=== PATIENT | male | born 1925 | race Caucasian/White ===

== ENCOUNTER 2016-06-13 15:20 | Observation (INO) | payer OTHER ==
--- NOTE | 2016-06-13 15:39 | PDOC ---
[id number] No Limitations - History of Present Illness Initial Comments: 06/13/16 15:44 The patient is an 89-year-old man, accompanied by his , with a significant past medical history of hypertension, hypercholesterolemia and tricuspid regurgitations who presents to the emergency department for further evaluation of chest pain. No fall, strenuous activity. As per patient, he reports experiencing a sudden onset of intermittent non-radiating chest pressure sensations, located on is mid-sternum with a rated (4/10). He notes associated symptoms of tingling sensations over his fingertips and legs. No associated symptoms of shortness of breath, lightheadedness, dizziness, visual changes, neck pain, headaches. He reports experiencing similar symptoms in December of 2015. He was admitted and states that he did not have a definite answer as to why he experienced such symptoms. No fever, chills, generalized weakness. No abdominal pain, nausea, vomiting, diarrhea. No urinary symptoms. Off note- while reviewing past documents, the patient underwent an echocardiogram on October 2015 which was indicative of tricuspid valve thickening and tricuspid regurgitation. No history of stress test in the past. Allergies: No Known Drug Allergies Past Surgical History: Umbilical hernia repair. Social History: Never smoked. No ETOH and recreational drug use. Primary Care Physician: Dr. Alan Short District Scout Executive: Dr. Clement Moyer <Jacque Oconnor - Last Filed: 06/13/16 16:11> <Landen Ribeiro - Last Filed: 06/27/16 09:11> - General Chief Complaint: Chest Pain Stated Complaint: CHEST PAIN Time Seen by Provider: 06/13/16 15:39 Past History <Jacque Oconnor - Last Filed: 06/13/16 16:11> - Past Medical History HTN: Yes Hypercholesterolemia: Yes - Surgical History Abdominal Surgery: Yes (umbilical hernia) - Psycho/Social/Smoking Cessation Hx Anxiety: No Suicidal Ideation: No Smoking Status: No Smoking History: Never smoked Have you smoked in the past 12 months: No Number of Cigarettes Smoked Daily: 0 Hx Alcohol Use: No Drug/Substance Use Hx: No Substance Use Type: None <Landne Ribeiro - Last Filed: 06/27/16 09:11> - Past Medical History Allergies/Adverse Reactions: Allergies Allergy/AdvReac Type Severity Reaction Status Date / Time No Known Allergies Allergy Verified 06/13/16 15:22 Home Medications: Ambulatory Orders Allopurinol [Zyloprim -] 100 mg PO HS 12/21/11 Tamsulosin HCl 0.4 mg PO HS 12/21/11 Amlodipine Besylate [Norvasc -] 10 mg PO DAILY 07/19/15 Aspirin [ASA -] 81 mg PO DAILY 07/19/15 Atorvastatin Ca [Lipitor] 20 mg PO HS 07/19/15 Hydralazine HCl [Apresoline -] 50 mg PO BID 07/19/15 Hydrochlorothiazide [Hctz -] 12.5 mg PO DAILY 07/19/15 Isosorbide Mononitrate [Imdur -] 60 mg PO DAILY 07/19/15 Metoprolol Succinate [Toprol XL -] 50 mg PO DAILY 07/19/15 Lisinopril 20 mg PO DAILY 10/29/15 Review of Systems - Review of Systems Able to Perform ROS?: Yes Comments:: 06/13/16 15:44 GENERAL/CONSTITUTIONAL: No fever or chills. No weakness. HEAD, EYES, EARS, NOSE AND THROAT: No change in vision. No ear pain or discharge. No sore throat. CARDIOVASCULAR: Yes: Chest Pain. No shortness of breath. RESPIRATORY: No cough, wheezing, or hemoptysis. GASTROINTESTINAL: No nausea, vomiting, diarrhea or constipation. GENITOURINARY: No dysuria, frequency, or change in urination. MUSCULOSKELETAL: No joint or muscle swelling or pain. No neck or back pain. SKIN: No rash NEUROLOGIC: Yes: Tingling sensations to his fingertips and legs. No headache, vertigo, loss of consciousness, or change in strength. ENDOCRINE: No increased thirst. No abnormal weight change. HEMATOLOGIC/LYMPHATIC: No anemia, easy bleeding, or history of blood clots. ALLERGIC/IMMUNOLOGIC: No hives or skin allergy. <Jacque Oconnor - Last Filed: 06/13/16 16:11> *Physical Exam - Vital Signs Last Vital Signs Temp Pulse Resp BP Pulse Ox 98 F 74 18 180/100 98 06/13/16 15:22 06/13/16 15:22 06/13/16 15:22 06/13/16 15:22 06/13/16 15:22 - Physical Exam Comments: 06/13/16 15:44 GENERAL: Awake, alert, and fully oriented, in no acute distress HEAD: No signs of trauma EYES: PERRLA, EOMI, sclera anicteric, conjunctiva clear ENT: Auricles normal inspection, hearing grossly normal, nares patent, oropharynx clear without exudates. Moist mucosa NECK: Normal ROM, supple, no lymphadenopathy, JVD, or masses LUNGS: Breath sounds equal, clear to auscultation bilaterally. No wheezes, and no crackles HEART: Regular rate and rhythm, normal S1 and S2, no murmurs, rubs or gallops ABDOMEN: Soft, nontender, normoactive bowel sounds. No guarding, no rebound. No masses EXTREMITIES: Normal range of motion, no edema. No clubbing or cyanosis. No cords, erythema, or tenderness NEUROLOGICAL: Cranial nerves II through XII grossly intact. Normal speech <Jacque Oconnor - Last Filed: 06/13/16 16:11> - Vital Signs Last Vital Signs Temp Pulse Resp BP Pulse Ox 98 F 74 18 180/100 98 06/13/16 15:22 06/13/16 15:22 06/13/16 15:22 06/13/16 15:22 06/13/16 15:22 <Landen Ribeiro - Last Filed: 06/27/16 09:11> Heart Score/ECG Review #1 06/13/16 16:05 Reviewed and interpreted by Dr. Landen Riebiro IMPRESSION: Sinus rhythm with 1rst degree AV block otherwise normal EKG. No change from previous EKG obtained from 10/29/2015 <Jacque Oconnor - Last Filed: 06/13/16 16:11> ED Treatment Course - LABORATORY CBC & Chemistry Diagram: 06/15/16 05:35 06/15/16 05:35 <Landen Ribeiro - Last Filed: 06/27/16 09:11> Medical Decision Making - Medical Decision Making 06/13/16 15:44 The patient is an 89-year-old man, accompanied by his , with a significant past medical history of hypertension, hypercholesterolemia and tricuspid regurgitations who presents to the emergency department for further evaluation of chest pain. No fall, strenuous activity. As per patient, he reports experiencing a sudden onset of intermittent non-radiating chest pressure sensations, located on is mid-sternum with a rated (4/10). He notes associated symptoms of tingling sensations over his fingertips and legs. No associated symptoms of shortness of breath, lightheadedness, dizziness, visual changes, neck pain, headaches. He reports experiencing similar symptoms in December of 2015 but today he feels more pressure. Off note- while reviewing past documents, the patient underwent an echocardiogram on October 2015 which was indicative of tricuspid valve thickening and tricuspid regurgitation. No history of stress test in the past. Will obtain labs, EKG and Chest X-Ray. Will reassess. <Jacque Oconnor - Last Filed: 06/13/16 16:11> *DC/Admit/Observation/Transfer - Attestations Scribe Attestion: 06/13/16 15:45 Documentation prepared by Jacque Oconnor, acting as medical record technician for Landen Ribeiro DO. <Jacque Oconnor - Last Filed: 06/13/16 16:11> - Attestations Physician Attestion: 06/13/16 15:39 I, Dr. Landen Ribeiro, attest that this document has been prepared under my direction and personally reviewed by me in its entirety. I further attest, that it accurately reflects all work, treatment, procedures and medical decision -making performed by me. <Landen Ribeiro - Last Filed: 06/27/16 09:11> Diagnosis at time of Disposition: Chest pain Qualifiers: Chest pain type: unspecified Qualified Code(s): R07.9 - Chest pain, unspecified Hypertension Qualifiers: Hypertension type: essential hypertension Qualified Code(s): I10 - Essential ( primary) hypertension - Discharge Dispostion Disposition: TRANSFER ACUTE CARE/OTHER HOSP Condition at time of disposition: Stable - Referrals
[2016-06-13] MEDS ORDERED: SODIUM CHLORIDE 1,000 ML IV SCH (16:00)
[2016-06-13 16:17] LABS: BASOPHIL 0.8 % (0-2.0); EOSINOPHIL 0.5 % (0-4.5); MCH 31.5 pg (25.7-33.7); MCHC 33.7 g/dl (32.0-35.9); MEAN CELL VOLUME 93.5 fl (80-96); MEAN PLT VOLUME 8.8 fl (7.5-11.1); NEUTROPHILS 64.3 % (42.8-82.8); PLATELET COUNT 211 K/MM3 (134-434); RDW 14.6 % (11.9-15.9)
[2016-06-13 16:54] LABS: BILIRUBIN,TOTAL 1.1 mg/dL (0.2-1.0); CALCIUM 8.7 mg/dL (8.5-10.1); COCKROFT - GAULT 33.73; CREATININE 1.6 mg/dL (0.7-1.3); TOT PROT 7.4 g/dl (6.4-8.2)
[2016-06-13 16:55] LABS: MAGNESIUM 1.2 mg/dL (1.8-2.4); PHOSPHOROUS 2.8 mg/dL (2.5-4.9)
[2016-06-13 16:58] LABS: TROPONIN I < 0.02 ng/ml (0.00-0.05)
[2016-06-13 17:01] LABS: URINE APPEARANCE CLEAR; URINE BILIRUBIN NEGATIVE (NEGATIVE); URINE BLOOD NEGATIVE (NEGATIVE); URINE COLOR STRAW; URINE GLUCOSE (UA) NEGATIVE (NEGATIVE); URINE KETONE NEGATIVE (NEGATIVE); URINE LEUK ESTERASE NEGATIVE (NEGATIVE); URINE NITRITE NEGATIVE (NEGATIVE); URINE PROTEIN NEGATIVE (NEGATIVE); URINE UROBILINOGEN NEGATIVE E.U./dl (0.2-1.0)
[2016-06-13] MEDS ORDERED: ASPIRIN 81 MG CHEWABLE TABLETS PO ONE (18:24)
--- NOTE | 2016-06-13 18:30 | PDOC ---
*Physical Exam - Vital Signs Last Vital Signs Temp Pulse Resp BP Pulse Ox 98 F 75 18 152/82 97 06/13/16 15:22 06/13/16 16:23 06/13/16 16:23 06/13/16 16:23 06/13/16 16:23 ED Treatment Course - LABORATORY CBC & Chemistry Diagram: 06/13/16 16:08 06/13/16 16:00 - ADDITIONAL ORDERS Additional order review: Laboratory Results 06/13/16 06/13/16 06/13/16 16:08 16:08 16:08 Sodium Potassium Chloride Carbon Dioxide Anion Gap BUN Creatinine Creat Clearance w eGFR Random Glucose Calcium Phosphorus 2.8 D Magnesium 1.2 L Total Bilirubin AST ALT Alkaline Phosphatase Creatine Kinase 128 Troponin I < 0.02 B-Natriuretic Peptide Cancelled Total Protein Albumin Lipase Urine Color Urine Appearance Urine pH Ur Specific Nesbit Urine Protein Urine Glucose (UA) Urine Ketones Urine Blood Urine Nitrite Urine Bilirubin Urine Urobilinogen Ur Leukocyte Esterase Blood Type A POSITIVE Antibody Screen Negative 06/13/16 06/13/16 16:08 16:00 Sodium 128 L Potassium 4.3 Chloride 89 L Carbon Dioxide 24 Anion Gap 15 BUN 32 H D Creatinine 1.6 H D Creat Clearance w eGFR 40.90 Random Glucose 102 Calcium 8.7 Phosphorus Magnesium Total Bilirubin 1.1 H AST 16 ALT 16 Alkaline Phosphatase 49 Creatine Kinase Troponin I B-Natriuretic Peptide 638.33 H Total Protein 7.4 Albumin 4.0 Lipase 375 Urine Color Straw Urine Appearance Clear Urine pH 7.0 Ur Specific Nesbit 1.008 Urine Protein Negative Urine Glucose (UA) Negative Urine Ketones Negative Urine Blood Negative Urine Nitrite Negative Urine Bilirubin Negative Urine Urobilinogen Negative Ur Leukocyte Esterase Negative Blood Type Antibody Screen 06/13/16 16:08 RBC 4.05 MCV 93.5 MCHC 33.7 RDW 14.6 MPV 8.8 Neutrophils % 64.3 Lymphocytes % 22.4 Monocytes % 12.0 H Eosinophils % 0.5 Basophils % 0.8 *DC/Admit/Observation/Transfer Diagnosis at time of Disposition: Chest pain Qualifiers: Chest pain type: unspecified Qualified Code(s): R07.9 - Chest pain, unspecified Hypertension Qualifiers: Hypertension type: essential hypertension Qualified Code(s): I10 - Essential ( primary) hypertension - Discharge Dispostion Condition at time of disposition: Stable Admit: Yes - Referrals Referrals: Alan Short MD [Primary Care Provider] - - Patient Instructions - Post Discharge Activity
[2016-06-13] MEDS ORDERED: ASPIRIN 81 MG CHEWABLE TABLETS ONE (18:37)
--- NOTE | 2016-06-13 19:31 | PN ---
<Sam Montes - Last Filed: 06/13/16 19:31> Teaching Attending Note Name of Resident: Shiva Arce ATTENDING PHYSICIAN STATEMENT I saw and evaluated the patient. I reviewed the resident's note and discussed the case with the resident. I agree with the resident's findings and plan as documented. SUBJECTIVE: OBJECTIVE: ASSESSMENT AND PLAN: <Valentina Flower - Last Filed: 06/13/16 20:25> Teaching Attending Note ATTENDING PHYSICIAN STATEMENT I saw and evaluated the patient. I reviewed the resident's note and discussed the case with the resident. I agree with the resident's findings and plan as documented. SUBJECTIVE: 89 yo M that presents to the ED complaining of midsternal chest pain that occurred while driving his car around 4 pm in the afternoon. Pain was 7/10 intensity, pressure-like, nonradiating, associated with tingling of bilateral hands and face. He reports previous episodes of left-sided chest/shoulder blade pain that is positional. Most recent stress test 5 years ago. Patient has been having uncontrolled HTN over the course of past couple of months. Patient was recently started on HCTZ. PMHx: HTN, chronic renal insufficiency, BPH, hyponatremia, hypercholesterolemia and tricuspid regurgitations Surgical Hx: Umbilical hernia repair, cataract Allergies: NKDA Social Hx: lives with family, good social support, denies smoking, etoh and drug use. Tack Cutter: Dr. Moyer OBJECTIVE: Last Vital Signs Temp Pulse Resp BP Pulse Ox 98 F 75 18 152/82 97 06/13/16 15:22 06/13/16 16:23 06/13/16 16:23 06/13/16 16:23 06/13/16 16:23 GENERAL: Awake, alert, and fully oriented, in no acute distress HEENT: Atraumatic. PERRLA, EOMI. Moist mucosa. No JVD LUNGS: No distress, speaks full sentences, clear to auscultation bilaterally HEART: Regular rate and rhythm, normal S1 and S2, no murmurs, rubs or gallops, peripheral pulses normal and equal bilaterally. Reproducible left chest wall tenderness. ABDOMEN: Soft, nontender, normoactive bowel sounds. No guarding, no rebound. No masses EXTREMITIES: Normal inspection, Normal range of motion, trace pedal edema. No clubbing or Cyanosis. NEUROLOGICAL: Cranial nerves II through XII grossly intact. Normal speech, normal gait, no focal sensorimotor deficits SKIN: Warm, Dry, normal turgor, no rashes or lesions noted. CBCD WBC 7.0 K/mm3 (4.0-10.0) 06/13/16 16:08 RBC 4.05 M/mm3 (4.00-5.60) 06/13/16 16:08 Hgb 12.7 GM/dL (11.7-16.9) 06/13/16 16:08 Hct 37.8 % (35.4-49) 06/13/16 16:08 MCV 93.5 fl (80-96) 06/13/16 16:08 MCHC 33.7 g/dl (32.0-35.9) 06/13/16 16:08 RDW 14.6 % (11.9-15.9) 06/13/16 16:08 Plt Count 211 K/MM3 (134-434) 06/13/16 16:08 MPV 8.8 fl (7.5-11.1) 06/13/16 16:08 CMP Sodium 128 mmol/L (136-145) L 06/13/16 16:00 Potassium 4.3 mmol/L (3.5-5.1) 06/13/16 16:00 Chloride 89 mmol/L (98-107) L 06/13/16 16:00 Carbon Dioxide 24 mmol/L (21-32) 06/13/16 16:00 Anion Gap 15 (8-16) 06/13/16 16:00 BUN 32 mg/dL (7-18) H D 06/13/16 16:00 Creatinine 1.6 mg/dL (0.7-1.3) H D 06/13/16 16:00 Creat Clearance w eGFR 40.90 (>60) 06/13/16 16:00 Calcium 8.7 mg/dL (8.5-10.1) 06/13/16 16:00 Total Bilirubin 1.1 mg/dL (0.2-1.0) H 06/13/16 16:00 AST 16 U/L (15-37) 06/13/16 16:00 ALT 16 U/L (12-78) 06/13/16 16:00 Alkaline Phosphatase 49 U/L (45-117) 06/13/16 16:00 Total Protein 7.4 g/dl (6.4-8.2) 06/13/16 16:00 Albumin 4.0 g/dl (3.4-5.0) 06/13/16 16:00 ECG NSR with first degree AV block ASSESSMENT AND PLAN: 89 yo M with Hx of HTN and HLD presents with atypical chest pain. 1.) Chest pain- now resolved. -Aspirin given in ED -Telemetry monitoring -Continue with lipitor -Maintain appropriate BP control -Serial cardiac enzymes -Cardiology evaluation and possible stress test 2.) Hyponatremia-hypovolemic, likely medication induced. -Hold hydrochlorothiazide -1 L of normal saline was given in ED, will follow sodium levels 3.) Acute on chronic renal insufficiency- likely secondary to diuretics/ dehydration -Will monitor creatinine in AM after hydration 4.) BPH. Stable -Continue with flomax 5.) DVT ppx -Heparin sc Observation Documentation is prepared by Valentina Flower acting as medical diagnostic radiographer for Sam Montes M.D.
[2016-06-13] MEDS ORDERED: ACETAMINOPHEN 325 MG TABLET (FP) PO PRN (19:43)
--- NOTE | 2016-06-13 19:47 | HP ---
CHIEF COMPLAINT: Chest Pain PCP: Deja Alarm Mechanism Adjuster: Comfort HISTORY OF PRESENT ILLNESS: Patient is a 89 year old male with significant PMH of HTN, HLD, Tricuspid regurgitation who presents to ED for chest pain. Patient states he was on a car ride this afternoon, when at 230pm he felt a sudden pressure on his left lateral chest wall and left shoulder blade. He states the pressure was 4/10 in severity, intermittent since starting and not related to exertion. He also notes some tingling in his fingertips, feet and cheeks that has been chronic for several weeks-months. He was admitted for a similar event in October 2015. Denies chest pain, palpitations, shortness of breath, visual changes, dizziness or syncope. Denies fever, chills, dysuria. ER course was notable for: (1)EKG: Normal SInus Rhythm w/ 1st degree AV block (unchanged from October 2015) (2)Troponin (-) x1 (3)Given Aspirin 81mg Recent Travel: NONE NOTED PAST MEDICAL HISTORY: ABOVE PAST SURGICAL HISTORY: UMBILICAL HERNIA SURGERY Social History: Smoking:NONE REPORTED Alcohol:NONE REPORTED Drugs:NONE REPORTED Family History: Father in 40s, unsure of cause Allergies No Known Allergies Allergy (Verified 06/13/16 15:22) HOME MEDICATIONS: Home Medications Medication Instructions Recorded Allopurinol [Zyloprim -] 100 mg PO HS 12/21/11 Tamsulosin HCl 0.4 mg PO HS 12/21/11 Amlodipine Besylate [Norvasc -] 10 mg PO HS 07/19/15 Aspirin [ASA -] 81 mg PO DAILY 07/19/15 Atorvastatin Ca [Lipitor] 20 mg PO HS 07/19/15 Hydralazine HCl [Apresoline -] 50 mg PO BID 07/19/15 Hydrochlorothiazide [Hctz -] 12.5 mg PO DAILY 07/19/15 Isosorbide Mononitrate [Imdur -] 60 mg PO DAILY 07/19/15 Metoprolol Succinate [Toprol XL -] 50 mg PO DAILY 07/19/15 Lisinopril 20 mg PO DAILY 10/29/15 REVIEW OF SYSTEMS CONSTITUTIONAL: Absent: fever, chills, diaphoresis, generalized weakness, malaise, loss of appetite, weight change HEENT: Absent: rhinorrhea, nasal congestion, throat pain, throat swelling, difficulty swallowing, mouth swelling, ear pain, eye pain, visual changes CARDIOVASCULAR: (+)chest pressure Absent: chest pain, syncope, palpitations, irregular heart rate, lightheadedness , peripheral edema RESPIRATORY: Absent: cough, shortness of breath, dyspnea with exertion, orthopnea, wheezing, stridor, hemoptysis GASTROINTESTINAL: Absent: abdominal pain, abdominal distension, nausea, vomiting, diarrhea, constipation, melena, hematochezia GENITOURINARY: Absent: dysuria, frequency, urgency, hesitancy, hematuria, flank pain, genital pain MUSCULOSKELETAL: Absent: myalgia, arthralgia, joint swelling, back pain, neck pain SKIN: Absent: rash, itching, pallor HEMATOLOGIC/IMMUNOLOGIC: Absent: easy bleeding, easy bruising, lymphadenopathy, frequent infections ENDOCRINE: Absent: unexplained weight gain, unexplained weight loss, heat intolerance, cold intolerance NEUROLOGIC: Absent: headache, focal weakness or paresthesias, dizziness, unsteady gait, seizure, mental status changes, bladder or bowel incontinence PSYCHIATRIC: Absent: anxiety, depression, suicidal or homicidal ideation, hallucinations. PHYSICAL EXAMINATION Vital Signs Period Temp Pulse Resp BP Sys/Clifton Pulse Ox Last 24 Hr 98 F 74-75 18-18 152-180/82-100 97-98 GENERAL: Awake, alert, and fully oriented, in no acute distress. HEENT: Atraumatic, EOMI, PERRLA, No lymphadenopathy noted, moist membranes LUNGS: Breath sounds equal, clear to auscultation bilaterally. No wheezes, and no crackles. No accessory muscle use. HEART: Regular rate and rhythm, normal S1 and S2 without murmur, rub or gallop. ABDOMEN: Soft, nontender, not distended, normoactive bowel sounds. Abdominal wall hernia noted on valsalva maneuver MUSCULOSKELETAL: Normal range of motion at all joints. No bony deformities or tenderness. No CVA tenderness. UPPER EXTREMITIES: 2+ pulses, warm, well-perfused. No cyanosis. No clubbing. No peripheral edema. LOWER EXTREMITIES: 2+ pulses, warm, well-perfused. No calf tenderness. +1 Pitting edema bilateral LE NEUROLOGICAL: Cranial nerves II-XII intact. Normal speech. Normal gait. PSYCHIATRIC: Cooperative. Good eye contact. Appropriate mood and affect. SKIN: Warm, dry, normal turgor, no rashes or lesions noted, normal capillary refill. ASSESSMENT/PLAN: 89 year old male with significant PMH of HTN, HLD, Tricuspid regurgitation who presents to ED for chest pain. #Atypical Chest Pain, r/o ACS -placed in Tele observation for continuous cardiac monitoring -troponins (-) x1, will trend -cardiology consulted -given Aspirin 81mg -CXR reviewed, f/u in AM #Acute Renal failure, likely dehydration -given 1liter IVF NS in ED -will trend in AM -if still elevated, may need Nephrology consult -avoid nephrotoxic meds #HTN/HLD history -continue home meds: Amlodipine 10mg PO daily, Hydralazine 50mg PO BID, Imdur 60mg PO daily, Lisinopril 20mg PO daily, Toprol 50mg PO daily, Lipitor 20mg HS -holding HCTZ #Hyponatremia, chronic -trend in AM s/p IVF administration overnight #Hypomagnesium -repleted -trend in AM #Constipation -started on Colace BID & Miralax #BPH -continue home meds: Flomax 0.4mg PO daily Prophylaxis/FEN -Heparin 5000 BID -Protonix 20mg -Sodium controlled diet -IVF NS for 1liter -will monitor electrolytes Visit type - Emergency Visit Emergency Visit: Yes ED Registration Date: 06/13/16 Care time: The patient presented to the Emergency Department on the above date and was hospitalized for further evaluation of their emergent condition. - New Patient This patient is new to me today: Yes Date on this admission: 06/13/16 - Critical Care Critical Care patient: No
[2016-06-13] MEDS ORDERED: MAGNESIUM SULF 50% (8.12 MEQ/2 ML-1 GM VIAL) IVPB ONE (20:00)
[2016-06-13] MEDS ORDERED: MAGNESIUM SULF 50% (8.12 MEQ/2 ML-1 GM VIAL) ONE (20:25)
[2016-06-13] MEDS ORDERED: PANTOPRAZOLE 40 MG TABLET (FP) ONE (20:26)
[2016-06-13] MEDS: PANTOPRAZOLE 20 MG TABLET (FP) PO SCH (20:37)
[2016-06-13] MEDS: hydrALAZINE HCL 50 MG TABLET (FP) PO SCH (22:45)
[2016-06-13] MEDS: DOCUSATE SODIUM 100 MG CAPSULE (FP) PO SCH (22:45)
[2016-06-13] MEDS: ATORVASTATIN CA 10 MG TABLET (FP) PO SCH (22:45)
[2016-06-13] MEDS: HEPARIN NA (PORCINE) 5,000 UNITS/ML 1ML VIAL SQ SCH (22:45)
[2016-06-13] MEDS: TAMSULOSIN HCL 0.4 MG CAP.ER.24H (FP) PO SCH (22:45)
[2016-06-14 06:21] LABS: MCHC 34.4 g/dl (32.0-35.9); MEAN CELL VOLUME 93.1 fl (80-96); MEAN PLT VOLUME 8.7 fl (7.5-11.1); PLATELET COUNT 200 K/MM3 (134-434); RDW 14.1 % (11.9-15.9); WHITE BLOOD COUNT 6.9 K/mm3 (4.0-10.0)
[2016-06-14 07:07] LABS: ALBUMIN 3.2 g/dl (3.4-5.0); BILIRUBIN,TOTAL 0.8 mg/dL (0.2-1.0); CALCIUM 8.3 mg/dL (8.5-10.1); COCKROFT - GAULT 38.55; CREATININE 1.4 mg/dL (0.7-1.3); MAGNESIUM 1.7 mg/dL (1.8-2.4); PHOSPHOROUS 2.6 mg/dL (2.5-4.9)
[2016-06-14 07:09] LABS: TROPONIN I 0.02 ng/ml (0.00-0.05)
[2016-06-14] MEDS ORDERED: ISOSORBIDE MONONITRATE 30 MG TAB.SR.24H (FP) PO SCH (10:00)
[2016-06-14] MEDS ORDERED: POLYETHYLENE GLYCOL 3350 119 GM BTL PO SCH (10:00)
[2016-06-14] MEDS: amLODIPine BESYLATE 10 MG TABLET (FP) PO SCH (10:30)
[2016-06-14] MEDS: ASPIRIN 81 MG CHEWABLE TABLETS PO SCH (10:30)
[2016-06-14] MEDS: LISINOPRIL 20 MG TABLET (FP) PO SCH (10:30)
[2016-06-14] MEDS: hydrALAZINE HCL 50 MG TABLET (FP) PO SCH ×2 (10:30→22:18)
[2016-06-14] MEDS: DOCUSATE SODIUM 100 MG CAPSULE (FP) PO SCH ×2 (10:30→22:18)
[2016-06-14] MEDS: METOPROLOL SUCCINATE 50 MG TAB.SR.24H (FP) PO SCH (10:30)
[2016-06-14] MEDS: ISOSORBIDE MONONITRATE 60 MG TAB.SR.24H (FP) PO SCH (10:30)
[2016-06-14] MEDS: PANTOPRAZOLE 20 MG TABLET (FP) PO SCH (10:30)
[2016-06-14] MEDS: HEPARIN NA (PORCINE) 5,000 UNITS/ML 1ML VIAL SQ SCH ×2 (10:30→22:18)
--- NOTE | 2016-06-14 12:15 | EKG ---
Test Reason : Blood Pressure : / mmHG Vent. Rate : 071 BPM Atrial Rate : 071 BPM P-R Int : 212 ms QRS Dur : 106 ms QT Int : 390 ms P-R-T Axes : 101 015 041 degrees QTc Int : 423 ms SINUS RHYTHM WITH 1ST DEGREE A-V BLOCK OTHERWISE NORMAL ECG WHEN COMPARED WITH ECG OF 29-OCT-2015 06:25, T WAVE VARIATION Confirmed by ZONIA BARROS MD ([id number]) on 06/14/2016 12:15:13 PM Referred By: Confirmed By:ZONIA BARROS MD
[2016-06-14] MEDS ORDERED: MAGNESIUM OXIDE 400 MG TABLET (FP) PO ONE (13:00)
[2016-06-14 13:24] LABS: TROPONIN I 0.02 ng/ml (0.00-0.05)
--- NOTE | 2016-06-14 13:40 | PN ---
Physical Exam: SUBJECTIVE: Patient seen and examined Pt is awake, alert and fully oriented No s/s of distress No chest pain, palpitation, dizziness Pt had chest pain yesterday which was substernal, non radiating, pressure, crushing like, lasting about 15mn Chest pain has not recurred since yesterday OBJECTIVE: Vital Signs Period Temp Pulse Resp BP Sys/Clifton Pulse Ox Last 24 Hr 97.5 F-98.4 F 60-86 16-20 122-169/65-78 95-99 GENERAL: The patient is awake, alert, and fully oriented, in no acute distress. HEAD: Normal with no signs of trauma. NECK: Trachea midline, full range of motion, supple. LUNGS: Breath sounds equal, clear to auscultation bilaterally, no wheezes, no crackles, no accessory muscle use. HEART: Regular rate and rhythm, S1, S2 without murmur, rub or gallop. ABDOMEN: obese, Soft, nontender, nondistended, normoactive bowel sounds, no guarding, no rebound, no hepatosplenomegaly, no masses. EXTREMITIES: 2+ pulses, warm, well-perfused, no edema. NEUROLOGICAL: Normal speech, gait normal PSYCH: Normal mood, normal affect. SKIN: Warm, dry, normal turgor, no rashes or lesions noted Laboratory Results - last 24 hr 06/14/16 06/14/16 06/14/16 06:07 06:07 12:31 WBC 6.9 RBC 3.59 L Hgb 11.5 L Hct 33.4 L MCV 93.1 MCHC 34.4 RDW 14.1 Plt Count 200 MPV 8.7 Sodium 132 L Potassium 4.2 Chloride 95 L Carbon Dioxide 26 Anion Gap 11 BUN 29 H Creatinine 1.4 H Creat Clearance w eGFR 47.72 Random Glucose 90 Calcium 8.3 L Phosphorus 2.6 Magnesium 1.7 L D Total Bilirubin 0.8 D AST 14 L ALT 13 Alkaline Phosphatase 41 L Creatine Kinase 141 Troponin I 0.02 0.02 Total Protein 6.0 L Albumin 3.2 L Active Medications Generic Name Dose Route Start Last Admin Trade Name Freq PRN Reason Stop Dose Admin Acetaminophen 650 mg 06/13/16 19:43 Tylenol - PO Q4H PRN FEVER OR PAIN Amlodipine Besylate 10 mg 06/14/16 10:00 06/14/16 10:30 Norvasc - PO 10 mg DAILY RIANNA Administration Aspirin 81 mg 06/14/16 10:00 06/14/16 10:30 Asa - PO 81 mg DAILY RIANNA Administration Atorvastatin Calcium 20 mg 06/13/16 22:00 06/13/16 22:45 Lipitor - PO 20 mg HS RIANNA Administration Docusate Sodium 100 mg 06/13/16 22:00 06/14/16 10:30 Colace - PO 100 mg BID RIANNA Administration Heparin Sodium (Porcine) 5,000 unit 06/13/16 22:00 06/14/16 10:30 Heparin - SQ 5,000 unit BID RIANNA Administration Hydralazine HCl 50 mg 06/13/16 22:00 06/14/16 10:30 Apresoline - PO 50 mg BID RIANNA Administration Sodium Chloride 1,000 mls @ 125 mls/hr 06/13/16 16:00 06/13/16 16:19 Normal Saline - IV 125 mls/hr ASDIR RIANNA Administration Isosorbide Mononitrate 60 mg 06/14/16 10:00 06/14/16 10:30 Imdur - PO 60 mg DAILY RIANNA Administration Lisinopril 20 mg 06/14/16 10:00 06/14/16 10:30 Prinivil PO 20 mg DAILY RIANNA Administration Metoprolol Succinate 50 mg 06/14/16 10:00 06/14/16 10:30 Toprol Xl - PO 50 mg DAILY RIANNA Administration Pantoprazole Sodium 20 mg 06/13/16 19:45 06/14/16 10:30 Protonix - PO 20 mg DAILY RIANNA Administration Polyethylene Glycol 17 gm 06/14/16 10:00 06/14/16 10:30 Miralax (For Daily Use) - PO 17 gm DAILY RIANNA Administration Tamsulosin HCl 0.4 mg 06/13/16 22:00 06/13/16 22:45 Flomax - PO 0.4 mg HS RIANNA Administration CBC, BMP 06/14/16 06:07 06/14/16 06:07 Laboratory Tests 06/13/16 06/14/16 06/14/16 16:08 06:07 12:31 Troponin I < 0.02 0.02 0.02 ASSESSMENT/PLAN: 89 year old male with pmh of HTN, HPLD, presented to the ED with complaint of Chest pain Chest pain r/o ACS HEART score 5 last echo in 10/2015 showed normal LV size, function, thickness, no wall motion abnormality. Right atriuma nd left atrium dilated, Moderate aortic stenosis , RVSP 50-60 Description of chest pain make it sound ischemic Cardiology consulted Troponins negative x3 Consider ECho Consider stress test Will check Lipid panel, Hgba1c in am if pt is not discharged ASA 81mg Po daily Acute kidney injury Most likely due to dehydration Cr 1.6 yesterday, today Cr 1.4 improved on IV fluid Will continue IV fluid avoid nephrotoxins HTN Continue antihypertensives SBP less aleksandra 155 in last 24 hours Hyperlipidemia Continue Lipitor Lipid panel in am Hypomagnesemia Mg 1.2 on admission repeleted with 2gm IV magnesium sulfate overnight ON repeat Mg 1.7 MgOx 800mg Po once Constipation Colace 100 BID Miralax 17gm daily BPH Flomax 0.4mg Po daily FEN Fluid: NS at 125ml, will likely decrease it to 75ml/h since pt is eating Electrolytes: Chemistry in am Nutrition: Cardiac diet DVT prophylaxis: heparin SQ [id number] Disposition: Keep in Telemetry pending cardiac evaluation Visit type - Emergency Visit Emergency Visit: Yes ED Registration Date: 06/13/16 Care time: The patient presented to the Emergency Department on the above date and was hospitalized for further evaluation of their emergent condition. - New Patient This patient is new to me today: Yes Date on this admission: 06/14/16 - Critical Care Critical Care patient: No - Discharge Referral Referred to [facility] No
--- NOTE | 2016-06-14 13:41 | CON.CARD ---
Consult Consult Specialty:: Cardiology - History of Present Illness History of Present Illness: The patient is an 89-year-old man, accompanied by his , with a significant past medical history of hypertension, hypercholesterolemia and tricuspid regurgitations who presents to the emergency department for further evaluation of chest pain. No fall, strenuous activity. As per patient, he reports experiencing a sudden onset of intermittent non-radiating chest pressure sensations, located on is mid-sternum with a rated (4/10). He notes associated symptoms of tingling sensations over his fingertips and legs. No associated symptoms of shortness of breath, lightheadedness, dizziness, visual changes, neck pain, headaches. He reports experiencing similar symptoms in December of 2015. He was admitted and states that he did not have a definite answer as to why he experienced such symptoms. No fever, chills, generalized weakness. No abdominal pain, nausea, vomiting, diarrhea. No urinary symptoms. - History Source Limitations to Obtaining History: No Limitations - Past Medical History Cardio/Vascular: Yes: CHF, HTN, Hyperlipdemia Rheumatology: Yes: Gout - Alcohol/Substance Use Hx Alcohol Use: No - Smoking History Smoking history: Never smoked Have you smoked in the past 12 months: No Aproximately how many cigarettes per day: 0 Home Medications - Allergies Allergies/Adverse Reactions: Allergies Allergy/AdvReac Type Severity Reaction Status Date / Time No Known Allergies Allergy Verified 06/13/16 15:22 - Home Medications Home Medications: Ambulatory Orders Allopurinol [Zyloprim -] 100 mg PO HS 12/21/11 Tamsulosin HCl 0.4 mg PO HS 12/21/11 Amlodipine Besylate [Norvasc -] 10 mg PO DAILY 07/19/15 Aspirin [ASA -] 81 mg PO DAILY 07/19/15 Atorvastatin Ca [Lipitor] 20 mg PO HS 07/19/15 Hydralazine HCl [Apresoline -] 50 mg PO BID 07/19/15 Hydrochlorothiazide [Hctz -] 12.5 mg PO DAILY 07/19/15 Isosorbide Mononitrate [Imdur -] 60 mg PO DAILY 07/19/15 Metoprolol Succinate [Toprol XL -] 50 mg PO DAILY 07/19/15 Lisinopril 20 mg PO DAILY 10/29/15 Review of Systems - Review of Systems Constitutional: reports: No Symptoms Eyes: reports: No Symptoms HENT: reports: No Symptoms Neck: reports: No Symptoms Cardiovascular: reports: Chest Pain Gastrointestinal: reports: No Symptoms Genitourinary: reports: No Symptoms Breasts: reports: No Symptoms Reported Musculoskeletal: reports: No Symptoms Integumentary: reports: No Symptoms Neurological: reports: No Symptoms Endocrine: reports: No Symptoms Hematology/Lymphatic: reports: No Symptoms Psychiatric: reports: No Symptoms Vital Signs: Vital Signs Temperature 98.2 F 06/14/16 10:30 Pulse Rate 76 06/14/16 10:30 Respiratory Rate 16 06/14/16 10:30 Blood Pressure 169/78 06/14/16 10:30 O2 Sat by Pulse Oximetry (%) 98 06/14/16 10:30 Constitutional: Yes: Well Nourished, No Distress, Calm Eyes: Yes: WNL, Conjunctiva Clear, EOM Intact HENT: Yes: WNL, Atraumatic, Normocephalic Neck: Yes: WNL, Supple, Trachea Midline Respiratory: Yes: WNL, Regular, CTA Bilaterally Gastrointestinal: Yes: WNL, Normal Bowel Sounds Renal/: Yes: WNL Cardiovascular: Yes: WNL, Regular Rate and Rhythm Musculoskeletal: Yes: WNL Extremities: Yes: WNL Edema: LLE: Trace, RLE: Trace Integumentary: Yes: WNL Neurological: Yes: WNL, Alert, Oriented ...Motor Strength: WNL Psychiatric: Yes: WNL, Alert, Oriented - Other Data Labs, Other Data: CBC, BMP 06/14/16 06:07 06/14/16 06:07 Troponin, BNP 06/14/16 06/14/16 06:07 12:31 Troponin I 0.02 0.02 Troponin, BNP 06/14/16 06/14/16 06:07 12:31 Troponin I 0.02 0.02 Laboratory Results - last 24 hr 06/13/16 06/13/16 06/13/16 16:00 16:08 16:08 WBC RBC Hgb Hct MCV MCHC RDW Plt Count MPV Neutrophils % Lymphocytes % Monocytes % Eosinophils % Basophils % Sodium 128 L Potassium 4.3 Chloride 89 L Carbon Dioxide 24 Anion Gap 15 BUN 32 H D Creatinine 1.6 H D Creat Clearance w eGFR 40.90 Random Glucose 102 Calcium 8.7 Phosphorus 2.8 D Magnesium 1.2 L Total Bilirubin 1.1 H AST 16 ALT 16 Alkaline Phosphatase 49 Creatine Kinase 128 Troponin I < 0.02 B-Natriuretic Peptide 638.33 H Total Protein 7.4 Albumin 4.0 Lipase 375 Urine Color Straw Urine Appearance Clear Urine pH 7.0 Ur Specific [place] 1.008 Urine Protein Negative Urine Glucose (UA) Negative Urine Ketones Negative Urine Blood Negative Urine Nitrite Negative Urine Bilirubin Negative Urine Urobilinogen Negative Ur Leukocyte Esterase Negative Blood Type Antibody Screen 06/13/16 06/13/16 06/13/16 16:08 16:08 16:08 WBC 7.0 RBC 4.05 Hgb 12.7 Hct 37.8 MCV 93.5 MCHC 33.7 RDW 14.6 Plt Count 211 MPV 8.8 Neutrophils % 64.3 Lymphocytes % 22.4 Monocytes % 12.0 H Eosinophils % 0.5 Basophils % 0.8 Sodium Potassium Chloride Carbon Dioxide Anion Gap BUN Creatinine Creat Clearance w eGFR Random Glucose Calcium Phosphorus Magnesium Total Bilirubin AST ALT Alkaline Phosphatase Creatine Kinase Troponin I B-Natriuretic Peptide Cancelled Total Protein Albumin Lipase Urine Color Urine Appearance Urine pH Ur Specific [place] Urine Protein Urine Glucose (UA) Urine Ketones Urine Blood Urine Nitrite Urine Bilirubin Urine Urobilinogen Ur Leukocyte Esterase Blood Type A POSITIVE Antibody Screen Negative 06/14/16 06/14/16 06/14/16 06:07 06:07 12:31 WBC 6.9 RBC 3.59 L Hgb 11.5 L Hct 33.4 L MCV 93.1 MCHC 34.4 RDW 14.1 Plt Count 200 MPV 8.7 Neutrophils % Lymphocytes % Monocytes % Eosinophils % Basophils % Sodium 132 L Potassium 4.2 Chloride 95 L Carbon Dioxide 26 Anion Gap 11 BUN 29 H Creatinine 1.4 H Creat Clearance w eGFR 47.72 Random Glucose 90 Calcium 8.3 L Phosphorus 2.6 Magnesium 1.7 L D Total Bilirubin 0.8 D AST 14 L ALT 13 Alkaline Phosphatase 41 L Creatine Kinase 141 Troponin I 0.02 0.02 B-Natriuretic Peptide Total Protein 6.0 L Albumin 3.2 L Lipase Urine Color Urine Appearance Urine pH Ur Specific [place] Urine Protein Urine Glucose (UA) Urine Ketones Urine Blood Urine Nitrite Urine Bilirubin Urine Urobilinogen Ur Leukocyte Esterase Blood Type Antibody Screen Imaging - Results Chest X-ray: Image Reviewed (no i/e) EKG: Image Reviewed (sr rep abn) Assessment/Plan chf diastolic acute hyponatremia cri angina noncomplience - suppose to have an outpatient stress testafter admission in 2015 Plan r/o mi MIBI stress test lasix 20 cont asa
[2016-06-14] MEDS ORDERED: SODIUM CHLORIDE 1,000 ML IV SCH (13:56)
--- NOTE | 2016-06-14 14:18 | PN ---
Teaching Attending Note Name of Resident: Yasir Stiles ATTENDING PHYSICIAN STATEMENT I saw and evaluated the patient. I reviewed the resident's note and discussed the case with the resident. I agree with the resident's findings and plan as documented. SUBJECTIVE:89yo M with sudden onset of crushing substernal CP while sitting in the car yesterday. assoc with B/L hand tingling. had similar episode in the past. was evaluated here in october 2015. 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 no repeated episodes here. had sinus tenderness several weeks ago which since resolved. did not take medications. denies CP, SOB,fver, chills. denies smoking or family hx of cardiac arrest OBJECTIVE: Last Vital Signs Temp Pulse Resp BP Pulse Ox 98.2 F 76 16 169/78 98 06/14/16 10:30 06/14/16 10:30 06/14/16 10:30 06/14/16 10:30 06/14/16 10:30 General NAD CV S1 S2 RRR no murmur/rub/gallop no chest wall tenderness LUngs CTA B/L No wheezing/rales/rhonchi ASSESSMENT AND PLAN: 89yo M with PMH HTN and TR presented to the ER and was admitted for further evaluation of their emergent condition 1. Typical CP- no events on quality assurance monitor body. CE neg x2. echo from 10/2015 noted. would liekly require benefit from stress test. inpatient vs outpatient per cardio. 2. Hypomangnesemia- Mg 800mg 3. Hyponatremia- liekly dehydration. improved 4. HTN- slightly above goal. will continue to monitor. continue home meds 5. DVT ppx- hep sq
[2016-06-14] MEDS: FUROSEMIDE 20 MG TABLET (FP) PO SCH (15:00)
[2016-06-14 21:03] VITALS: BMI 27.8
[2016-06-14] MEDS: ATORVASTATIN CA 10 MG TABLET (FP) PO SCH (22:18)
[2016-06-14] MEDS: TAMSULOSIN HCL 0.4 MG CAP.ER.24H (FP) PO SCH (22:18)
[2016-06-14] MEDS: ALLOPURINOL 100 MG TABLET (FP) PO SCH (23:50)
[2016-06-15 07:20] LABS: MCH 31.5 pg (25.7-33.7); MCHC 33.3 g/dl (32.0-35.9); MEAN CELL VOLUME 94.6 fl (80-96); MEAN PLT VOLUME 8.8 fl (7.5-11.1); PLATELET COUNT 183 K/MM3 (134-434); RDW 14.9 % (11.9-15.9); WHITE BLOOD COUNT 6.5 K/mm3 (4.0-10.0)
[2016-06-15 07:57] LABS: CALCIUM 8.5 mg/dL (8.5-10.1); COCKROFT - GAULT 40.03; CREATININE 1.3 mg/dL (0.7-1.3); MAGNESIUM 1.8 mg/dL (1.8-2.4); PHOSPHOROUS 2.6 mg/dL (2.5-4.9)
[2016-06-15] MEDS: amLODIPine BESYLATE 10 MG TABLET (FP) PO SCH (08:30)
[2016-06-15] MEDS: hydrALAZINE HCL 50 MG TABLET (FP) PO SCH ×2 (08:30→21:41)
[2016-06-15] MEDS ORDERED: DIPYRIDAMOLE STRESS TEST 42 MG in DEXTROSE 5%-WATER - 33.6 ML IVPB ONE (10:00)
[2016-06-15] MEDS: LISINOPRIL 20 MG TABLET (FP) PO SCH (12:03)
[2016-06-15] MEDS: ISOSORBIDE MONONITRATE 60 MG TAB.SR.24H (FP) PO SCH (12:03)
[2016-06-15] MEDS: PANTOPRAZOLE 20 MG TABLET (FP) PO SCH (12:04)
[2016-06-15] MEDS: FUROSEMIDE 20 MG TABLET (FP) PO SCH (12:04)
[2016-06-15] MEDS: METOPROLOL SUCCINATE 50 MG TAB.SR.24H (FP) PO SCH (12:04)
[2016-06-15] MEDS: DOCUSATE SODIUM 100 MG CAPSULE (FP) PO SCH ×2 (12:04→21:41)
[2016-06-15] MEDS: ASPIRIN 81 MG CHEWABLE TABLETS PO SCH (12:05)
[2016-06-15] MEDS: HEPARIN NA (PORCINE) 5,000 UNITS/ML 1ML VIAL SQ SCH ×2 (12:05→21:41)
--- NOTE | 2016-06-15 12:05 | PN ---
Progress Note, Physician History of Present Illness: The patient is an 89-year-old man, accompanied by his , with a significant past medical history of hypertension, hypercholesterolemia and tricuspid regurgitations who presents to the emergency department for further evaluation of chest pain. No fall, strenuous activity. As per patient, he reports experiencing a sudden onset of intermittent non-radiating chest pressure sensations, located on is mid-sternum with a rated (4/10). He notes associated symptoms of tingling sensations over his fingertips and legs. No associated symptoms of shortness of breath, lightheadedness, dizziness, visual changes, neck pain, headaches. He reports experiencing similar symptoms in December of 2015. He was admitted and states that he did not have a definite answer as to why he experienced such symptoms. No fever, chills, generalized weakness. No abdominal pain, nausea, vomiting, diarrhea. No urinary symptoms. - Current Medication List Current Medications: Active Medications Acetaminophen (Tylenol -) 650 mg PO Q4H PRN PRN Reason: FEVER OR PAIN Allopurinol (Zyloprim -) 100 mg PO [facility] Last Admin: 06/14/16 23:50 Dose: 100 mg Amlodipine Besylate (Norvasc -) 10 mg PO DAILY [facility] Last Admin: 06/14/16 10:30 Dose: 10 mg Aspirin (Asa -) 81 mg PO DAILY [facility] Last Admin: 06/14/16 10:30 Dose: 81 mg Atorvastatin Calcium (Lipitor -) 20 mg PO [facility] Last Admin: 06/14/16 22:18 Dose: 20 mg Docusate Sodium (Colace -) 100 mg PO BID [facility] Last Admin: 06/14/16 22:18 Dose: 100 mg Furosemide (Lasix -) 20 mg PO DAILY [facility] Last Admin: 06/14/16 15:00 Dose: 20 mg Heparin Sodium (Porcine) (Heparin -) 5,000 unit SQ BID [facility] Last Admin: 06/14/16 22:18 Dose: 5,000 unit Hydralazine HCl (Apresoline -) 50 mg PO BID [facility] Last Admin: 06/14/16 22:18 Dose: 50 mg Sodium Chloride (Normal Saline -) 1,000 mls @ 75 mls/hr IV ASDIR [facility] Last Admin: 06/14/16 14:00 Dose: 75 mls/hr Isosorbide Mononitrate (Imdur -) 60 mg PO DAILY [facility] Last Admin: 06/14/16 10:30 Dose: 60 mg Lisinopril (Prinivil) 20 mg PO DAILY [facility] Last Admin: 06/14/16 10:30 Dose: 20 mg Metoprolol Succinate (Toprol Xl -) 50 mg PO DAILY [facility] Last Admin: 06/14/16 10:30 Dose: 50 mg Pantoprazole Sodium (Protonix -) 20 mg PO DAILY [facility] Last Admin: 06/14/16 10:30 Dose: 20 mg Polyethylene Glycol (Miralax (For Daily Use) -) 17 gm PO DAILY [facility] Last Admin: 06/14/16 10:30 Dose: 17 gm Tamsulosin HCl (Flomax -) 0.4 mg PO HS [facility] Last Admin: 06/14/16 22:18 Dose: 0.4 mg - Objective Vital Signs: Vital Signs Temperature 98.6 F 06/15/16 08:00 Pulse Rate 69 06/15/16 08:00 Respiratory Rate 18 06/15/16 08:00 Blood Pressure 161/74 06/15/16 08:00 O2 Sat by Pulse Oximetry (%) 97 06/15/16 01:00 Eyes: Yes: WNL, Conjunctiva Clear, EOM Intact HENT: Yes: WNL, Atraumatic, Normocephalic Neck: Yes: WNL, Supple, Trachea Midline Cardiovascular: Yes: WNL, Regular Rate and Rhythm Respiratory: Yes: WNL, Regular, CTA Bilaterally Gastrointestinal: Yes: WNL, Normal Bowel Sounds Genitourinary: Yes: WNL Musculoskeletal: Yes: WNL Extremities: Yes: WNL Edema: No Integumentary: Yes: WNL Neurological: Yes: WNL, Alert, Oriented ...Motor Strength: WNL Psychiatric: Yes: WNL Labs: CBC, BMP 06/15/16 05:35 06/15/16 05:35 Assessment/Plan chf diastolic acute hyponatremia cri angina noncomplience - suppose to have an outpatient stress testafter admission in 2015 Plan r/o mi MIBI stress test showed iW ischemia mild ekg changes I would recommend cardiac catheterization for further evaluation. lasix 20 cont asa
--- NOTE | 2016-06-15 15:18 | PN ---
Physical Exam: SUBJECTIVE: Patient seen and examined Pt seen before stress test Awake, alert and oriented no s/s of acute distress No fever or chills no chest pain, palpitation, no sob no dizziness OBJECTIVE: Vital Signs Period Temp Pulse Resp BP Sys/Clif[place] Pulse Ox Last 24 Hr 97.8 F-98.7 F 60-71 16-20 125-180/55-76 97-98 GENERAL: The patient is awake, alert, and fully oriented, in no acute distress. HEAD: Normal with no signs of trauma. NECK: Trachea midline, full range of motion, supple. LUNGS: Breath sounds equal, clear to auscultation bilaterally, no wheezes, no crackles, no accessory muscle use. HEART: Regular rate and rhythm, S1, S2 without murmur, rub or gallop. ABDOMEN: obese, Soft, nontender, nondistended, normoactive bowel sounds, no guarding, no rebound, no hepatosplenomegaly, no masses. EXTREMITIES: 2+ pulses, warm, well-perfused, no edema. NEUROLOGICAL: Normal speech, gait normal PSYCH: Normal mood, normal affect. SKIN: Warm, dry, normal turgor, no rashes or lesions noted Laboratory Results - last 24 hr 06/15/16 06/15/16 06/15/16 05:35 05:35 05:35 WBC 6.5 RBC 3.76 L Hgb 11.8 Hct 35.6 MCV 94.6 MCHC 33.3 RDW 14.9 Plt Count 183 MPV 8.8 Sodium 133 L Potassium 4.5 Chloride 98 Carbon Dioxide 25 Anion Gap 10 BUN 24 H Creatinine 1.3 Random Glucose 84 Hemoglobin A1c % 5.6 Calcium 8.5 Phosphorus 2.6 Magnesium 1.8 Triglycerides 83 Cholesterol 158 Total LDL Cholesterol 80 HDL Cholesterol 66 H D Active Medications Generic Name Dose Route Start Last Admin Trade Name Freq PRN Reason Stop Dose Admin Acetaminophen 650 mg 06/13/16 19:43 Tylenol - PO Q4H PRN FEVER OR PAIN Allopurinol 100 mg 06/14/16 22:00 06/14/16 23:50 Zyloprim - PO 100 mg HS RIANNA Administration Amlodipine Besylate 10 mg 06/14/16 10:00 06/15/16 08:30 Norvasc - PO 10 mg DAILY RIANNA Administration Aspirin 81 mg 06/14/16 10:00 06/15/16 12:05 Asa - PO 81 mg DAILY RIANNA Administration Atorvastatin Calcium 20 mg 06/13/16 22:00 06/14/16 22:18 Lipitor - PO 20 mg HS RIANNA Administration Docusate Sodium 100 mg 06/13/16 22:00 06/15/16 12:04 Colace - PO 100 mg BID RIANNA Administration Furosemide 20 mg 06/14/16 14:45 06/15/16 12:04 Lasix - PO 20 mg DAILY RIANNA Administration Heparin Sodium (Porcine) 5,000 unit 06/13/16 22:00 06/15/16 12:05 Heparin - SQ 5,000 unit BID RIANNA Administration Hydralazine HCl 50 mg 06/13/16 22:00 06/15/16 08:30 Apresoline - PO 50 mg BID RIANNA Administration Sodium Chloride 1,000 mls @ 75 mls/hr 06/14/16 13:56 06/14/16 14:00 Normal Saline - IV 75 mls/hr ASDIR RIANNA Administration Isosorbide Mononitrate 60 mg 06/14/16 10:00 06/15/16 12:03 Imdur - PO 60 mg DAILY RIANNA Administration Lisinopril 20 mg 06/14/16 10:00 06/15/16 12:03 Prinivil PO 20 mg DAILY RIANNA Administration Metoprolol Succinate 50 mg 06/14/16 10:00 06/15/16 12:04 Toprol Xl - PO 50 mg DAILY RIANNA Administration Pantoprazole Sodium 20 mg 06/13/16 19:45 06/15/16 12:04 Protonix - PO 20 mg DAILY RIANNA Administration Polyethylene Glycol 17 gm 06/14/16 10:00 06/14/16 10:30 Miralax (For Daily Use) - PO 17 gm DAILY RIANNA Administration Tamsulosin HCl 0.4 mg 06/13/16 22:00 06/14/16 22:18 Flomax - PO 0.4 mg HS RIANNA Administration CBC, BMP 06/15/16 05:35 06/15/16 05:35 Laboratory Tests 06/15/16 06/15/16 05:35 05:35 Hemoglobin A1c % 5.6 Phosphorus 2.6 Magnesium 1.8 Total LDL Cholesterol 80 HDL Cholesterol 66 H D ASSESSMENT/PLAN: 89 year old male with pmh of HTN, HPLD, presented to the ED with complaint of Chest pain Chest pain r/o ACS HEART score 5 last echo in 10/2015 showed normal LV size, function, thickness, no wall motion abnormality. Right atrium and left atrium dilated, Moderate aortic stenosis, RVSP 50-60 Description of chest pain make it sound ischemic Cardiology consulted Troponins negative x3 stress test today Lipid panel LDL 80, HDL 66, Hgba1c 5.6 ASA 81mg Po daily Acute kidney injury Most likely due to dehydration Cr 1.6 on admission, today Cr 1.3 improved on IV fluid Will continue IV fluid avoid nephrotoxins HTN Continue antihypertensives Hyperlipidemia Continue Lipitor Lipid panel in am Hypomagnesemia Mg 1.2 on admission Repleted Mg 1.8 today Constipation Colace 100 BID Miralax 17gm daily BPH Flomax 0.4mg Po daily FEN Fluid: DC IV fluid Electrolytes: Chemistry in am Nutrition: Cardiac diet DVT prophylaxis: heparin SQ 5000BID Disposition: Pending stress test result Visit type - Emergency Visit Emergency Visit: Yes ED Registration Date: 06/13/16 Care time: The patient presented to the Emergency Department on the above date and was hospitalized for further evaluation of their emergent condition. - New Patient This patient is new to me today: Yes Date on this admission: 06/15/16 - Critical Care Critical Care patient: No - Discharge Referral Referred to [facility] No
[2016-06-15] MEDS ORDERED: ASPIRIN 81 MG CHEWABLE TABLETS PO ONE (16:15)
[2016-06-15] MEDS ORDERED: ASPIRIN 81 MG CHEWABLE TABLETS ONE (16:24)
--- NOTE | 2016-06-15 18:36 | PN ---
Teaching Attending Note Name of Resident: Yasir Stiles ATTENDING PHYSICIAN STATEMENT I saw and evaluated the patient. I reviewed the resident's note and discussed the case with the resident. I agree with the resident's findings and plan as documented. SUBJECTIVE: No complaints. OBJECTIVE: Vital Signs Period Temp Pulse Resp BP Sys/[place]if[place] Pulse Ox Last 24 Hr 97.8 F-98.7 F 60-71 18-20 125-180/55-76 97-97 HEART: S1S2, RRR LUNGS: Clear ABDOMEN: Soft, non-tender, non-distended, normal BS EXTREMITIES: No edema ASSESSMENT AND PLAN: This is an 89-year-old man with a history of HTN, hyperlipidemia, TR who presented to the ER with chest pain. 1. Chest pain, possibly secondary to CAD - Resolved - Continue aspirin, Toprol XL, Lipitor, Imdur - Stress test today 2. Hypomagnesemia - Improved 3. Hyponatremia secondary to diuretics - Improving 4. HTN - Continue Norvasc, Hydralazine, Lasix, Lisinopril, Toprol XL 5. Hyperlipidemia - Continue Lipitor 6. Tricuspid regurgitation 7. BPH - Continue Flomax 8. Acute kidney injury - Improved 9. Stage 3 CKD
[2016-06-15] MEDS: ATORVASTATIN CA 10 MG TABLET (FP) PO SCH (21:41)
[2016-06-15] MEDS: ALLOPURINOL 100 MG TABLET (FP) PO SCH (21:41)
[2016-06-15] MEDS: TAMSULOSIN HCL 0.4 MG CAP.ER.24H (FP) PO SCH (21:41)
--- NOTE | 2016-06-16 07:24 | DS ---
Physical Exam: SUBJECTIVE: Patient seen and examined Pt is feeling well No s/s of distress awaiting transfer to cardiac cath OBJECTIVE: Vital Signs Period Temp Pulse Resp BP Sys/Clifton Pulse Ox Last 24 Hr 97.9 F-98.8 F 59-74 18-20 111-180/47-76 97-97 PHYSICAL EXAM GENERAL: The patient is awake, alert, and fully oriented, in no acute distress. HEAD: Normal with no signs of trauma. NECK: Trachea midline, full range of motion, supple. LUNGS: Breath sounds equal, clear to auscultation bilaterally, no wheezes, no crackles, no accessory muscle use. HEART: Regular rate and rhythm, S1, S2 with murmur, rub or gallop. ABDOMEN: obese, Soft, nontender, nondistended, normoactive bowel sounds, no guarding, no rebound, no hepatosplenomegaly, no masses. EXTREMITIES: 2+ pulses, warm, well-perfused, no edema. NEUROLOGICAL: Normal speech, gait normal PSYCH: Normal mood, normal affect. SKIN: Warm, dry, normal turgor, no rashes or lesions noted LABS Laboratory Results - last 24 hr 06/15/16 06/15/16 06/15/16 05:35 05:35 05:35 WBC 6.5 RBC 3.76 L Hgb 11.8 Hct 35.6 MCV 94.6 MCHC 33.3 RDW 14.9 Plt Count 183 MPV 8.8 Sodium 133 L Potassium 4.5 Chloride 98 Carbon Dioxide 25 Anion Gap 10 BUN 24 H Creatinine 1.3 Random Glucose 84 Hemoglobin A1c % 5.6 Calcium 8.5 Phosphorus 2.6 Magnesium 1.8 Triglycerides 83 Cholesterol 158 Total LDL Cholesterol 80 HDL Cholesterol 66 H D CBC, BMP 06/15/16 05:35 06/15/16 05:35 HOSPITAL COURSE: Date of Admission:06/13/16 Patient is a 89 year old male with significant PMH of HTN, HLD, Tricuspid regurgitation who presents to ED for chest pain. Patient states he was on a car ride this afternoon, when at 230pm he felt a sudden pressure on his left lateral chest wall and left shoulder blade. He states the pressure was 4/10 in severity, intermittent since starting and not related to exertion. He also notes some tingling in his fingertips, feet and cheeks that has been chronic for several weeks-months. He was admitted for a similar event in October 2015. Denies chest pain, palpitations, shortness of breath, visual changes, dizziness or syncope. Denies fever, chills, dysuria. ER course was notable for: (1)EKG: Normal SInus Rhythm w/ 1st degree AV block ( unchanged from October 2015) (2)Troponin (-) x1 (3)Given Aspirin 81mg 89 year old male with pmh of HTN, HPLD, presented to the ED with complaint of Chest pain. Chest pain r/o ACS, HEART score 5, last echo in 10/2015 showed normal LV size, function, thickness, no wall motion abnormality. Right atrium and left atrium dilated, Moderate aortic stenosis, RVSP 50-60. Description of chest pain make it sound ischemic. Cardiology consulted Troponins negative x3. Stress test positive for moderate zone of inferior defect from to apex compatible with reversible ischemia. Cardiology recommended cardiac cath. Patient and family agrees. Pt was transferred to [facility] for cardiac catherization. Date of Discharge: 06/16/16 Minutes to complete discharge: 40 Discharge Summary Reason For Visit: CHEST PAIN/HYPERTENSION Current Active Problems Chest pain (Acute) Hypertension (Acute) Condition: Stable - Instructions Referrals: Alan Short MD [Primary Care Provider] - Disposition: TRANSFER ACUTE CARE/OTHER HOSP - Home Medications Comprehensive Discharge Medication List: Ambulatory Orders Allopurinol [Zyloprim -] 100 mg PO HS 12/21/11 Tamsulosin HCl 0.4 mg PO HS 12/21/11 Amlodipine Besylate [Norvasc -] 10 mg PO DAILY 07/19/15 Aspirin [ASA -] 81 mg PO DAILY 07/19/15 Atorvastatin Ca [Lipitor] 20 mg PO HS 07/19/15 Hydralazine HCl [Apresoline -] 50 mg PO BID 07/19/15 Hydrochlorothiazide [Hctz -] 12.5 mg PO DAILY 07/19/15 Isosorbide Mononitrate [Imdur -] 60 mg PO DAILY 07/19/15 Metoprolol Succinate [Toprol XL -] 50 mg PO DAILY 07/19/15 Lisinopril 20 mg PO DAILY 10/29/15 This patient is new to me today: Yes Emergency Visit: Yes ED Registration Date: 06/13/16 Care time: The patient presented to the Emergency Department on the above date and was hospitalized for further evaluation of their emergent condition. Critical Care patient: No - Discharge Referral Referred to [facility] No
[2016-06-16] MEDS ORDERED: ASPIRIN 325 MG ENTERIC COATED TABLET (FP) PO SCH (10:00)
[2016-06-16] MEDS: METOPROLOL SUCCINATE 50 MG TAB.SR.24H (FP) PO SCH (10:13)
[2016-06-16] MEDS: LISINOPRIL 20 MG TABLET (FP) PO SCH (10:13)
[2016-06-16] MEDS: ISOSORBIDE MONONITRATE 60 MG TAB.SR.24H (FP) PO SCH (10:13)
[2016-06-16] MEDS: PANTOPRAZOLE 20 MG TABLET (FP) PO SCH (10:14)
[2016-06-16] MEDS: amLODIPine BESYLATE 10 MG TABLET (FP) PO SCH (10:14)
[2016-06-16] MEDS: HEPARIN NA (PORCINE) 5,000 UNITS/ML 1ML VIAL SQ SCH (10:14)
[2016-06-16] MEDS: DOCUSATE SODIUM 100 MG CAPSULE (FP) PO SCH (10:14)
[2016-06-16] MEDS: hydrALAZINE HCL 50 MG TABLET (FP) PO SCH (10:15)
[2016-06-16 11:20] VITALS: BP 144/56; PULSE 68; TEMP 98.7
--- NOTE | 2016-06-16 11:29 | PN ---
Progress Note, Physician History of Present Illness: The patient is an 89-year-old man, accompanied by his , with a significant past medical history of hypertension, hypercholesterolemia and tricuspid regurgitations who presents to the emergency department for further evaluation of chest pain. No fall, strenuous activity. As per patient, he reports experiencing a sudden onset of intermittent non-radiating chest pressure sensations, located on is mid-sternum with a rated (4/10). He notes associated symptoms of tingling sensations over his fingertips and legs. No associated symptoms of shortness of breath, lightheadedness, dizziness, visual changes, neck pain, headaches. He reports experiencing similar symptoms in December of 2015. He was admitted and states that he did not have a definite answer as to why he experienced such symptoms. No fever, chills, generalized weakness. No abdominal pain, nausea, vomiting, diarrhea. No urinary symptoms. - Current Medication List Current Medications: Active Medications Acetaminophen (Tylenol -) 650 mg PO Q4H PRN PRN Reason: FEVER OR PAIN Allopurinol (Zyloprim -) 100 mg PO [facility] Last Admin: 06/15/16 21:41 Dose: 100 mg Amlodipine Besylate (Norvasc -) 10 mg PO DAILY [facility] Last Admin: 06/16/16 10:14 Dose: 10 mg Aspirin (Asa -) 81 mg PO DAILY [facility] Last Admin: 06/15/16 12:05 Dose: 81 mg Aspirin (Ecotrin -) 325 mg PO DAILY [facility] Last Admin: 06/16/16 10:13 Dose: 325 mg Atorvastatin Calcium (Lipitor -) 20 mg PO [facility] Last Admin: 06/15/16 21:41 Dose: 20 mg Docusate Sodium (Colace -) 100 mg PO BID [facility] Last Admin: 06/16/16 10:14 Dose: 100 mg Heparin Sodium (Porcine) (Heparin -) 5,000 unit SQ BID [facility] Last Admin: 06/16/16 10:14 Dose: 5,000 unit Hydralazine HCl (Apresoline -) 50 mg PO BID [facility] Last Admin: 06/16/16 10:15 Dose: 50 mg Isosorbide Mononitrate (Imdur -) 60 mg PO DAILY [facility] Last Admin: 06/16/16 10:13 Dose: 60 mg Lisinopril (Prinivil) 20 mg PO DAILY [facility] Last Admin: 06/16/16 10:13 Dose: 20 mg Metoprolol Succinate (Toprol Xl -) 50 mg PO DAILY [facility] Last Admin: 06/16/16 10:13 Dose: 50 mg Pantoprazole Sodium (Protonix -) 20 mg PO DAILY [facility] Last Admin: 06/16/16 10:14 Dose: 20 mg Polyethylene Glycol (Miralax (For Daily Use) -) 17 gm PO DAILY [facility] Last Admin: 06/14/16 10:30 Dose: 17 gm Tamsulosin HCl (Flomax -) 0.4 mg PO HS [facility] Last Admin: 06/15/16 21:41 Dose: 0.4 mg - Objective Vital Signs: Vital Signs Temperature 98.7 F 06/16/16 10:00 Pulse Rate 68 06/16/16 10:00 Respiratory Rate 18 06/16/16 10:00 Blood Pressure 144/56 06/16/16 10:00 O2 Sat by Pulse Oximetry (%) 97 06/16/16 06:00 Eyes: Yes: WNL, Conjunctiva Clear, EOM Intact HENT: Yes: WNL, Atraumatic, Normocephalic Neck: Yes: WNL, Supple, Trachea Midline Cardiovascular: Yes: WNL, Regular Rate and Rhythm Respiratory: Yes: WNL, Regular, CTA Bilaterally Gastrointestinal: Yes: WNL, Normal Bowel Sounds Genitourinary: Yes: WNL Musculoskeletal: Yes: WNL Extremities: Yes: WNL Edema: No Integumentary: Yes: WNL Neurological: Yes: WNL, Alert, Oriented ...Motor Strength: WNL Psychiatric: Yes: WNL Labs: CBC, BMP 06/15/16 05:35 06/15/16 05:35 Assessment/Plan chf diastolic acute hyponatremia cri angina noncomplience - suppose to have an outpatient stress testafter admission in 2015 Plan r/o mi MIBI stress test showed iW ischemia mild ekg changes I would recommend cardiac catheterization for further evaluation. Patient to be transferred to Pending sale to [facility]
[2016-06-16] MEDS: ASPIRIN 81 MG CHEWABLE TABLETS PO SCH (12:43)
--- NOTE | 2016-06-16 18:37 | PN ---
Teaching Attending Note Name of Resident: Yasir Stiles ATTENDING PHYSICIAN STATEMENT I saw and evaluated the patient. I reviewed the resident's note and discussed the case with the resident. I agree with the resident's findings and plan as documented. SUBJECTIVE: OBJECTIVE: Vital Signs Period Temp Pulse Resp BP Sys/Clifton Pulse Ox Last 24 Hr 98 F-98.8 F 59-74 18-20 111-144/47-62 97-97 ASSESSMENT AND PLAN:
== END 2016-06-16 13:14 | disposition short-term general hospital (02) ==
LOC: SUPCPDRO 15:20 → JER 15:20 → JERBED 19:31 → J4W 06-14 18:00
PROVIDERS: ADMIT Internal Medicine; ATTEND Internal Medicine
PROC: 3E013GC Introduction of Other Therapeutic Substance into Subcutaneous Tissue, Percutaneous Approach (ICD-10-PCS; principal; 2016-06-13)
PROC: 3E033GC Introduction of Other Therapeutic Substance into Peripheral Vein, Percutaneous Approach (ICD-10-PCS; 2016-06-13)
PROC: 3E0337Z Introduction of Electrolytic and Water Balance Substance into Peripheral Vein, Percutaneous Approach (ICD-10-PCS; 2016-06-13)
DX: I50.30 Unspecified diastolic (congestive) heart failure (principal); R07.89 Other chest pain; N17.9 Acute kidney failure, unspecified; I12.9 Hypertensive chronic kidney disease with stage 1 through stage 4 chronic kidney disease, or unspecified chronic kidney disease; N18.9 Chronic kidney disease, unspecified; E78.5 Hyperlipidemia, unspecified; I36.1 Nonrheumatic tricuspid (valve) insufficiency; E87.1 Hypo-osmolality and hyponatremia; N40.0 Benign prostatic hyperplasia without lower urinary tract symptoms; E83.42 Hypomagnesemia; K59.00 Constipation, unspecified; Z79.82 Long term (current) use of aspirin; Z91.19 Patient's noncompliance with other medical treatment and regimen; Z79.01 Long term (current) use of anticoagulants
CPT/HCPCS: 36415; 71010-TC; 78452-TC; 80048; 80053; 80061; 81003; 82550; 83036; 83690; 83721; 83735; 83880; 84100; 84484; 85025; 85027; 86850; 86900; 86901; 93005; 93010; 93017; 99285-25; A9502; G0378; J1245; J1644

== ENCOUNTER 2017-01-30 09:40 | Inpatient (IN) | payer OTHER ==
--- NOTE | 2017-01-30 09:52 | PDOC ---
History of Present Illness - General History Source: Patient Exam Limitations: No Limitations - History of Present Illness Initial Comments: 01/30/17 10:25 The patient is a 89 year old male, with a significant past medical history of HTN, HLD, Tricuspid regurgitation, Moderate aortic stenosis who presents to the emergency department for further evaluation of chest pain. Yesterday morning, patient experienced gradual onset of upper shoulder pain which radiated into his chest. Patient describes pain as heaviness and pressure-like. Patient reports chest pressure is exacerbated upon deep inspiration which is unusual for him. Patient immediately called his surgeon and was sent to the ED for further evaluation. Patient reports high anxiety and stress due to hacking of his computer and credit cards. Patient denies any associated symptoms such as SOB, diaphoresis, nausea or vomiting. Note, patient reports similar event in May 25/2017 where he was admitted to [facility] for chest pain r/o ACS. Patient had positive stress test that revealed moderate zone of inferior defect from to apex compatible with reversible ischemia. Cardiology recommended cardiac catheterization and was transferred to [facility]. Patient had 3 stents placed and was discharged home. Last echocardiogram was 10/2015 which revealed normal LV size, function, thickness, no wall motion abnormality. Right atrium and left atrium dilated, moderate aortic stenosis and RVSP 50-60. Patient denies headache or dizziness. Patient denies fever, chills, abdominal pain, nausea, vomit, diarrhea or constipation. Patient denies dysuria, frequency , urgency or hematuria. Patient denies sick contacts or recent travel. Allergies: NKA Past surgical history: Umbilical hernia, stent placed on 06/2016 Social history: None PCP: Dr. Short Cardio: Comfort <Funmi Perez - Last Filed: 01/30/17 10:35> <Landen Ribeiro - Last Filed: 01/31/17 10:44> - General Chief Complaint: Chest Pain Stated Complaint: CHEST PAIN Time Seen by Provider: 01/30/17 09:51 Past History <Funmi Perez - Last Filed: 01/30/17 10:35> - Past Medical History COPD: No HTN: Yes Hypercholesterolemia: Yes - Surgical History Abdominal Surgery: Yes (umbilical hernia) Cardiac Surgery: Yes (stent 07/07) - Suicide/Smoking/Psychosocial Hx Smoking Status: No Smoking History: Never smoked Have you smoked in the past 12 months: No Number of Cigarettes Smoked Daily: 0 Hx Alcohol Use: No Drug/Substance Use Hx: No Substance Use Type: None Hx Substance Use Treatment: No <Landen Ribeiro - Last Filed: 01/31/17 10:44> - Past Medical History Allergies/Adverse Reactions: Allergies Allergy/AdvReac Type Severity Reaction Status Date / Time No Known Allergies Allergy Verified 01/30/17 09:44 Home Medications: Ambulatory Orders Allopurinol [Zyloprim -] 100 mg PO HS 12/21/11 Tamsulosin HCl 0.4 mg PO HS 12/21/11 Amlodipine Besylate [Norvasc -] 10 mg PO DAILY 07/19/15 Aspirin [ASA -] 81 mg PO DAILY 07/19/15 Atorvastatin Ca [Lipitor] 80 mg PO HS 07/19/15 Hydralazine HCl [Apresoline -] 50 mg PO BID 07/19/15 Isosorbide Mononitrate [Imdur -] 60 mg PO DAILY 07/19/15 Metoprolol Succinate [Toprol XL -] 100 mg PO DAILY 07/19/15 Lisinopril 5 mg PO DAILY 10/29/15 Clopidogrel Bisulfate [Clopidogrel] 75 mg PO DAILY 01/30/17 Docusate Sodium [Colace -] 200 mg PO DAILY 01/30/17 Furosemide 20 mg PO BID 01/30/17 Triamcinolone 0.1% Cream [Aristocort] 1 applic TP BID 01/30/17 Review of Systems - Review of Systems Able to Perform ROS?: Yes Comments:: 01/30/17 10:25 GENERAL/CONSTITUTIONAL: No fever or chills. No weakness. HEAD, EYES, EARS, NOSE AND THROAT: No change in vision. No ear pain or discharge. No sore throat. CARDIOVASCULAR: + chest pain. No shortness of breath. RESPIRATORY: No cough, wheezing, or hemoptysis. GASTROINTESTINAL: No nausea, vomiting, diarrhea or constipation. GENITOURINARY: No dysuria, frequency, or change in urination. MUSCULOSKELETAL: No joint or muscle swelling or pain. No neck or back pain. SKIN: No rash NEUROLOGIC: No headache, vertigo, loss of consciousness, or change in strength/ sensation. ENDOCRINE: No increased thirst. No abnormal weight change. HEMATOLOGIC/LYMPHATIC: No anemia, easy bleeding, or history of blood clots. ALLERGIC/IMMUNOLOGIC: No hives or skin allergy. <Funmi Perez - Last Filed: 01/30/17 10:35> *Physical Exam - Vital Signs Last Vital Signs Temp Pulse Resp BP Pulse Ox 47 L 18 111/42 98 01/30/17 09:42 01/30/17 09:42 01/30/17 09:42 01/30/17 09:42 - Physical Exam Comments: 01/30/17 10:25 GENERAL: Awake, alert, and fully oriented, in no acute distress HEAD: No signs of trauma EYES: PERRLA, EOMI, sclera anicteric, conjunctiva clear ENT: Auricles normal inspection, hearing grossly normal, nares patent, oropharynx clear without exudates. Moist mucosa NECK: Normal ROM, supple, no lymphadenopathy, JVD, or masses LUNGS: Breath sounds equal, clear to auscultation bilaterally. No wheezes, and no crackles HEART: Regular rate and rhythm, normal S1 and S2, no murmurs, rubs or gallops ABDOMEN: Soft, nontender, normoactive bowel sounds. No guarding, no rebound. No masses EXTREMITIES: Normal range of motion, no edema. No clubbing or cyanosis. No cords, erythema, or tenderness NEUROLOGICAL: Cranial nerves II through XII grossly intact. Normal speech, normal gait SKIN: Warm, Dry, normal turgor, no rashes or lesions noted. <Funmi Perez - Last Filed: 01/30/17 10:35> - Vital Signs Last Vital Signs Temp Pulse Resp BP Pulse Ox 47 L 18 111/42 98 01/30/17 09:42 01/30/17 09:42 01/30/17 09:42 01/30/17 09:42 <Landen Ribeiro - Last Filed: 01/31/17 10:44> Heart Score/ECG Review #1 01/30/17 10:[address] Gema Brand. rate 49 Junctional rhythm Abnormal ECG <Funmi Perez - Last Filed: 01/30/17 10:35> ED Treatment Course - LABORATORY CBC & Chemistry Diagram: 01/30/17 10:20 01/30/17 10:20 <Funmi Perez - Last Filed: 01/30/17 10:35> - LABORATORY CBC & Chemistry Diagram: 01/31/17 05:28 01/31/17 05:28 <Landen Ribeiro - Last Filed: 01/31/17 10:44> *DC/Admit/Observation/Transfer - Attestations Scribe Attestion: 01/30/17 10:25 Documentation prepared by Funmi Perez, acting as esthetician and manager medical spa for Landen Ribeiro MD <Funmi Perez - Last Filed: 01/30/17 10:35> - Attestations Physician Attestion: 01/30/17 09:51 I, Dr. Landen Ribeiro, attest that this document has been prepared under my direction and personally reviewed by me in its entirety. I further attest, that it accurately reflects all work, treatment, procedures and medical decision -making performed by me. <Landen Ribeiro - Last Filed: 01/31/17 10:44> Diagnosis at time of Disposition: Chest pain Qualifiers: Chest pain type: unspecified Qualified Code(s): R07.9 - Chest pain, unspecified - Discharge Dispostion Condition at time of disposition: Fair
[2017-01-30 10:27] LABS: BASOPHIL 0.8 % (0-2.0); EOSINOPHIL 0.6 % (0-4.5); MCHC 33.9 g/dl (32.0-35.9); MEAN CELL VOLUME 91.5 fl (80-96); NEUTROPHILS 66.3 % (42.8-82.8); PLATELET COUNT 197 K/MM3 (134-434); RDW 18.1 % (11.9-15.9); WHITE BLOOD COUNT 6.5 K/mm3 (4.0-10.0)
[2017-01-30] MEDS ORDERED: ASPIRIN 325 MG TABLET PO ONE (10:30)
--- NOTE | 2017-01-30 10:33 | PDOC ---
History of Present Illness - General Chief Complaint: Chest Pain Stated Complaint: CHEST PAIN Time Seen by Provider: 01/30/17 09:51 History Source: Patient - History of Present Illness Presenting Symptoms: Back Pain, Chest Pain Timing/Duration: reports: constant Severity/Quality: reports: moderate Past History - Past Medical History Allergies/Adverse Reactions: Allergies Allergy/AdvReac Type Severity Reaction Status Date / Time No Known Allergies Allergy Verified 01/30/17 09:44 Home Medications: Ambulatory Orders Allopurinol [Zyloprim -] 100 mg PO HS 12/21/11 Tamsulosin HCl 0.4 mg PO HS 12/21/11 Amlodipine Besylate [Norvasc -] 10 mg PO DAILY 07/19/15 Aspirin [ASA -] 81 mg PO DAILY 07/19/15 Atorvastatin Ca [Lipitor] 80 mg PO HS 07/19/15 Hydralazine HCl [Apresoline -] 50 mg PO BID 07/19/15 Isosorbide Mononitrate [Imdur -] 60 mg PO DAILY 07/19/15 Metoprolol Succinate [Toprol XL -] 100 mg PO DAILY 07/19/15 Lisinopril 5 mg PO DAILY 10/29/15 Clopidogrel Bisulfate [Clopidogrel] 75 mg PO DAILY 01/30/17 Docusate Sodium [Colace -] 200 mg PO DAILY 01/30/17 Furosemide 20 mg PO BID 01/30/17 Triamcinolone 0.1% Cream [Aristocort] 1 applic TP BID 01/30/17 COPD: No HTN: Yes Hypercholesterolemia: Yes - Surgical History Abdominal Surgery: Yes (umbilical hernia) Cardiac Surgery: Yes (stent 07/07) - Suicide/Smoking/Psychosocial Hx Smoking Status: No Smoking History: Never smoked Have you smoked in the past 12 months: No Number of Cigarettes Smoked Daily: 0 Hx Alcohol Use: No Drug/Substance Use Hx: No Substance Use Type: None Hx Substance Use Treatment: No Review of Systems - Review of Systems Constitutional: No: Chills, Fever Respiratory: No: Cough, Shortness of Breath Cardiac (ROS): Yes: Chest Pain. No: Lightheadedness, Palpitations, Syncope *Physical Exam - Vital Signs Last Vital Signs Temp Pulse Resp BP Pulse Ox 38 L 20 107/46 96 01/30/17 12:21 01/30/17 12:21 01/30/17 12:21 01/30/17 12:21 - Physical Exam General Appearance: Yes: Appropriately Dressed. No: Apparent Distress HEENT: positive: Normal Voice Neck: positive: Supple Respiratory/Chest: positive: Lungs Clear, Normal Breath Sounds. negative: Respiratory Distress Cardiovascular: positive: S1, S2, Bradycardia Gastrointestinal/Abdominal: positive: Soft. negative: Tender Extremity: positive: Pedal Edema Integumentary: positive: Dry, Warm Neurologic: positive: Fully Oriented, Alert, Normal Mood/Affect ED Treatment Course - LABORATORY CBC & Chemistry Diagram: 01/30/17 10:20 01/30/17 10:20 - ADDITIONAL ORDERS Additional order review: Laboratory Results 01/30/17 01/30/17 01/30/17 12:00 10:20 10:20 PT with INR 13.70 H INR 1.21 H Sodium 132 L Potassium 4.0 Chloride 96 L Carbon Dioxide 27 Anion Gap 9 BUN 55 H D Creatinine 2.0 H D Creat Clearance w eGFR 31.62 Random Glucose 106 D Calcium 8.0 L Total Bilirubin 1.0 D AST 31 D ALT 40 D Alkaline Phosphatase 57 D Creatine Kinase 165 Creatine Kinase Index 1.0 CK-MB (CK-2) 1.762 Troponin I 0.04 D B-Natriuretic Peptide 94621.18 H Total Protein 6.7 Albumin 3.6 TSH 3.43 D 01/30/17 10:20 RBC 3.43 L MCV 91.5 MCHC 33.9 RDW 18.1 H D MPV 9.0 Neutrophils % 66.3 Lymphocytes % 23.0 Monocytes % 9.3 Eosinophils % 0.6 Basophils % 0.8 - Medications Given in the ED: ED Medications Discontinued Medications Generic Name Dose Route Start Last Admin Trade Name Freq PRN Reason Stop Dose Admin Aspirin 325 mg 01/30/17 10:30 01/30/17 11:04 Asa - PO 01/30/17 10:31 325 mg ONCE ONE Administration Medical Decision Making - Medical Decision Making 01/30/17 10:32 89-year-old male history of hypertension, hyperlipidemia, CAD with stents on Lasix, here with chest pain. Patient states he has chronic upper back pain and that yesterday he developed his usual back pain that started radiating to his chest diffusely for the first time. Describes pain as both pressure like in nature and tight with a severity of 6-7 out of 10 and worse with deep inspiration. Otherwise, no shortness of breath, diaphoresis, nausea, vomiting, palpitations, acute leg pain or swelling. Denies cough, fever or chills. No similar chest pain in the past. F/u with Dr Moyer of cards See exam CP R/o ACS, less likely dissection, PE or PNA Pavel to 47-50s (usually runs slow pt 2/2 BB at home per pt), otherwise stable w / unremarkable exam -as -ekg -cxr -labs -discuss dispo w/ cards 01/30/17 10:48 EKG w/ ?aflutter w/ 4:1 conduction as per ED attg. Case d/w Dr Moyer and copy of EKG texted to . States he will contact pt's interventionalist, Dr Medellin who is at [place] 01/30/17 11:16 01/30/17 11:27 Dr. Moyer reviewed EKG and agrees that aflutter is possible versus slow junctional rhythm. Recommends Lovenox and admit for possible cath in am. States he will come see patient later. Also recommending TSH be sent off. BNP over 18,000, but clinically no evidence of volume overload. Chest x-ray read as unremarkable. 01/30/17 11:41 01/30/17 12:28 Case d/w hospitalist who wants pt on tele obs *DC/Admit/Observation/Transfer Diagnosis at time of Disposition: Chest pain Qualifiers: Chest pain type: unspecified Qualified Code(s): R07.9 - Chest pain, unspecified - Discharge Dispostion Condition at time of disposition: Fair Admit: Yes Decision to Admit order Date/Time: Decision to Admit Order Category Date Time Status Decision to Admit to Hospital Routine Admission 01/30/17 12:27 Ordered - Referrals Referrals: Clement Moyer MD [Primary Care Provider] - - Patient Instructions - Post Discharge Activity
[2017-01-30 10:49] LABS: INR 1.21 (0.82-1.09); PROTHROMBIN TIME (PATIENT) 13.7 SEC (9.98-11.88)
[2017-01-30 10:56] LABS: ALBUMIN 3.6 g/dl (3.4-5.0); ANION GAP 9 (8-16); CO2 27 mmol/L (21-32); CPK 165 IU/L (39-308); GLUCOSE,RANDOM 106 mg/dL (74-106); SGOT/AST 31 U/L (15-37); SGPT/ALT 40 U/L (12-78); TOT PROT 6.7 g/dl (6.4-8.2)
[2017-01-30] MEDS ORDERED: ASPIRIN 325 MG TABLET ONE (10:58)
[2017-01-30 11:01] LABS: ALK PHOS 57 U/L (45-117); TROPONIN I 0.04 ng/ml (0.00-0.05)
[2017-01-30] MEDS ORDERED: ENOXAPARIN NA (PORCINE) 80 MG/0.8 ML DISP.SYRIN SQ SCH (11:30)
[2017-01-30] MEDS ORDERED: ENOXAPARIN NA (PORCINE) 80 MG/0.8 ML DISP.SYRIN SQ ONE (11:37)
--- NOTE | 2017-01-30 14:22 | HP ---
CHIEF COMPLAINT: PCP: Bilateral shoulder pain radiating to chest HISTORY OF PRESENT ILLNESS: 89 year-old male with a PMH significant for HTN, HLD, CAD s/p stents x 3, diastolic heart failure, severe TR, moderate , and gout. Yesterday morning patient developed pain between his two shoulders that radiated toward his mid chest. He described the pain as a heaviness with intermittent sharp pain. The pain lasted most of the day. He was able to sleep last night but upon awakening this morning he again felt the same pain. It is worse with deep inspiration and with exercise. Patient states he has felt this pain over the past several months when taking a long walk or walking up a hill. Patient denies palpitations , diaphoresis, SOB, THOMAS, orthopnea, or bilateral lower extremity edema. He denies headache, cough, fever, sweats, chills. ER course was notable for: (1) Bradycardia to 36 (2) Troponin negative x 1 (3) BUN/Cr 58/2.0 Recent Travel: No PAST MEDICAL HISTORY: Hypertension Hyperlipidemia Coronary artery disease Diastolic heart failure Severe tricuspid regurgitation Moderate aortic stenosis PAST SURGICAL HISTORY: Cardiac stents x 3 ([facility] 06/2016) Social History: Smoking: never Alcohol: no Drugs: no Family History: lives with Allergies No Known Allergies Allergy (Verified 01/30/17 09:44) HOME MEDICATIONS: Medication Instructions Recorded Allopurinol [Zyloprim -] 100 mg PO HS 12/21/11 Tamsulosin HCl 0.4 mg PO HS 12/21/11 Amlodipine Besylate [Norvasc -] 10 mg PO DAILY 07/19/15 Aspirin [ASA -] 81 mg PO DAILY 07/19/15 Atorvastatin Ca [Lipitor] 80 mg PO HS 07/19/15 Hydralazine HCl [Apresoline -] 50 mg PO BID 07/19/15 Isosorbide Mononitrate [Imdur -] 60 mg PO DAILY 07/19/15 Metoprolol Succinate [Toprol XL -] 100 mg PO DAILY 07/19/15 Lisinopril 5 mg PO DAILY 10/29/15 Clopidogrel Bisulfate [Clopidogrel] 75 mg PO DAILY 01/30/17 Docusate Sodium [Colace -] 200 mg PO DAILY 01/30/17 Furosemide 20 mg PO BID 01/30/17 Triamcinolone 0.1% Cream 1 applic TP BID 01/30/17 [Aristocort] REVIEW OF SYSTEMS CONSTITUTIONAL: Absent: fever, chills, diaphoresis, generalized weakness, malaise, loss of appetite, weight change HEENT: Absent: rhinorrhea, nasal congestion, throat pain, throat swelling, difficulty swallowing, mouth swelling, ear pain, eye pain, visual changes CARDIOVASCULAR: Present: chest pain Absent: chest pain, syncope, palpitations, irregular heart rate, lightheadedness , peripheral edema RESPIRATORY: Absent: cough, shortness of breath, dyspnea with exertion, orthopnea, wheezing, stridor, hemoptysis GASTROINTESTINAL: Absent: abdominal pain, abdominal distension, nausea, vomiting, diarrhea, constipation, melena, hematochezia GENITOURINARY: Absent: dysuria, frequency, urgency, hesitancy, hematuria, flank pain, genital pain MUSCULOSKELETAL: Absent: myalgia, arthralgia, joint swelling, back pain, neck pain SKIN: Absent: rash, itching, pallor HEMATOLOGIC/IMMUNOLOGIC: Absent: easy bleeding, easy bruising, lymphadenopathy, frequent infections ENDOCRINE: Absent: unexplained weight gain, unexplained weight loss, heat intolerance, cold intolerance NEUROLOGIC: Absent: headache, focal weakness or paresthesias, dizziness, unsteady gait, seizure, mental status changes, bladder or bowel incontinence PSYCHIATRIC: Absent: anxiety, depression, suicidal or homicidal ideation, hallucinations. PHYSICAL EXAMINATION Vital Signs - 24 hr 01/30/17 01/30/17 01/30/17 09:42 11:18 11:45 Pulse Rate 47 L Pulse Rate [ 41 L 43 L Apical] Respiratory 18 20 20 Rate Blood Pressure 111/42 Blood Pressure 108/69 118/45 [Right Arm] O2 Sat by Pulse 98 96 96 Oximetry (%) 01/30/17 01/30/17 12:21 13:37 Pulse Rate Pulse Rate [ 38 L 43 L Apical] Respiratory 20 20 Rate Blood Pressure Blood Pressure 107/46 112/61 [Right Arm] O2 Sat by Pulse 96 99 Oximetry (%) GENERAL: Awake, alert, and fully oriented, in no acute distress. HEAD: Normal with no signs of trauma. EYES: Pupils equal, round and reactive to light, extraocular movements intact, sclera anicteric, conjunctiva clear. No lid lag. EARS, NOSE, THROAT: Ears normal, nares patent, oropharynx clear without exudates. Moist mucous membranes. NECK: Normal range of motion, supple without lymphadenopathy, JVD, or masses. LUNGS: Breath sounds equal, clear to auscultation bilaterally. No wheezes, and no crackles. No accessory muscle use. HEART: Regular rate and rhythm, normal S1 and S2 without murmur, rub or gallop. ABDOMEN: Soft, nontender, not distended, normoactive bowel sounds, no guarding, no rebound, no masses. Soft ventral hernia. MUSCULOSKELETAL: Normal range of motion at all joints. No bony deformities or tenderness. No CVA tenderness. UPPER EXTREMITIES: 2+ pulses, warm, well-perfused. No cyanosis. No clubbing. No peripheral edema. LOWER EXTREMITIES: 2+ pulses, warm, well-perfused. No calf tenderness. No peripheral edema. NEUROLOGICAL: Cranial nerves II-XII intact. Normal speech. PSYCHIATRIC: Cooperative. Good eye contact. Appropriate mood and affect. SKIN: Warm, dry, normal turgor Laboratory Results - last 24 hr 01/30/17 01/30/17 01/30/17 10:20 10:20 10:20 WBC 6.5 RBC 3.43 L Hgb 10.7 L Hct 31.4 L MCV 91.5 MCH 31.0 MCHC 33.9 RDW 18.1 H D Plt Count 197 MPV 9.0 Neutrophils % 66.3 Lymphocytes % 23.0 Monocytes % 9.3 Eosinophils % 0.6 Basophils % 0.8 PT with INR 13.70 H INR 1.21 H Sodium 132 L Potassium 4.0 Chloride 96 L Carbon Dioxide 27 Anion Gap 9 BUN 55 H D Creatinine 2.0 H D Creat Clearance w eGFR 31.62 Random Glucose 106 D Calcium 8.0 L Total Bilirubin 1.0 D AST 31 D ALT 40 D Alkaline Phosphatase 57 D Creatine Kinase 165 Creatine Kinase Index 1.0 CK-MB (CK-2) 1.762 Troponin I 0.04 D B-Natriuretic Peptide 21838.18 H Total Protein 6.7 Albumin 3.6 TSH 01/30/17 12:00 WBC RBC Hgb Hct MCV MCH MCHC RDW Plt Count MPV Neutrophils % Lymphocytes % Monocytes % Eosinophils % Basophils % PT with INR INR Sodium Potassium Chloride Carbon Dioxide Anion Gap BUN Creatinine Creat Clearance w eGFR Random Glucose Calcium Total Bilirubin AST ALT Alkaline Phosphatase Creatine Kinase Creatine Kinase Index CK-MB (CK-2) Troponin I B-Natriuretic Peptide Total Protein Albumin TSH 3.43 D ASSESSMENT/PLAN 89 year-old male with a PMH significant for HTN, HLD, CAD s/p stents x 3, diastolic heart failure, severe TR, moderate , and gout. Admitted for symptomatic bradycardia, chest pain, aflutter, and BERT. Symptomatic bradycardia Aflutter Chest pain Coronary artery disease s/p stents x 3 --HR as low as 36, appears to be 4:1 pattern --troponin neg x 1, one pending --discussed with Dr. Moyer, tentative plan is to transfer for cardiac cath --continue full dose lovenox, ASA, Plavix, isosorbide, Lipitor; hold AV mary blocking agents Diastolic heart failure Severe TR Moderate --patient appears dry, hold diuretics --monitor fluid status, respiratory status closely BERT Azotemia --Cr 2.0 on admission, baseline 1.3 --hold Lasix, home lisinopril Hypertension --continue hydralazine, amlodipine Hyperlipidemia --continue Lipitor Gout --continue allopurinol DVT prophylaxis: on full dose lovenox. Dispo: transfer for cardiac cath under consideration. Full code. Visit type - Emergency Visit Emergency Visit: Yes ED Registration Date: 01/31/17 Care time: The patient presented to the Emergency Department on the above date and was hospitalized for further evaluation of their emergent condition. - New Patient This patient is new to me today: Yes Date on this admission: 01/31/17 - Critical Care Critical Care patient: No
--- NOTE | 2017-01-30 18:10 | CON.CARD ---
Consult Consult Specialty:: cardiology - History of Present Illness History of Present Illness: The patient is an 89 year old white male, with a significant past medical history of HTN, HLD, diastolic CHF with severe Tricuspid regurgitation, Moderate aortic stenosis who presents to the emergency department for further evaluation of chest pain. Yesterday morning, patient experienced gradual onset of upper shoulder pain which radiated into his chest. Patient describes pain as heaviness and pressure-like. Patient reports chest pressure is exacerbated upon deep inspiration which is unusual for him. Patient immediately called his cardiac ginning operator, and was sent to the ED for further evaluation. Patient reports high anxiety and stress due to hacking of his computer and credit cards. Patient denies any associated symptoms such as SOB, diaphoresis, nausea or vomiting. Note, patient reports similar event in May 25/2017 where he was admitted to [facility] for chest pain r/o ACS. Patient had positive stress test that revealed moderate zone of inferior defect from to apex compatible with reversible ischemia. Cardiology recommended cardiac catheterization and was transferred to [facility]. Patient had 3 stents placed and was discharged home. Last echocardiogram was 10/2015 which revealed normal LV size, function, thickness, no wall motion abnormality. Right atrium and left atrium dilated, moderate aortic stenosis and RVSP 50-60 (severe pulmonary HTN). Patient denies headache or dizziness. Patient denies fever, chills, abdominal pain, nausea, vomit, diarrhea or constipation. Patient denies dysuria, frequency , urgency or hematuria. Patient denies sick contacts or recent travel. Allergies: NKA Past surgical history: Umbilical hernia, stent placed on 06/[address] [facility] by Dr. Ryan Oliveira. Social history: None PCP: Dr. Short Cardio: Comfort/Roxanne - History Source History Provided By: Patient, Medical Record (`) - Past Medical History Cardio/Vascular: Yes: CHF, HTN, Hyperlipdemia Rheumatology: Yes: Gout - Alcohol/Substance Use Hx Alcohol Use: No - Smoking History Smoking history: Never smoked Have you smoked in the past 12 months: No Aproximately how many cigarettes per day: 0 Home Medications - Allergies Allergies/Adverse Reactions: Allergies Allergy/AdvReac Type Severity Reaction Status Date / Time No Known Allergies Allergy Verified 01/30/17 09:44 - Home Medications Home Medications: Ambulatory Orders Allopurinol [Zyloprim -] 100 mg PO HS 12/21/11 Tamsulosin HCl 0.4 mg PO HS 12/21/11 Amlodipine Besylate [Norvasc -] 10 mg PO DAILY 07/19/15 Aspirin [ASA -] 81 mg PO DAILY 07/19/15 Atorvastatin Ca [Lipitor] 80 mg PO HS 07/19/15 Hydralazine HCl [Apresoline -] 50 mg PO BID 07/19/15 Isosorbide Mononitrate [Imdur -] 60 mg PO DAILY 07/19/15 Metoprolol Succinate [Toprol XL -] 100 mg PO DAILY 07/19/15 Lisinopril 5 mg PO DAILY 10/29/15 Clopidogrel Bisulfate [Clopidogrel] 75 mg PO DAILY 01/30/17 Docusate Sodium [Colace -] 200 mg PO DAILY 01/30/17 Furosemide 20 mg PO BID 01/30/17 Triamcinolone 0.1% Cream [Aristocort] 1 applic TP BID 01/30/17 Family Disease History - Family Disease History Family History: Denies Review of Systems - Review of Systems Constitutional: reports: No Symptoms Eyes: reports: No Symptoms HENT: reports: No Symptoms Neck: reports: No Symptoms Cardiovascular: reports: Chest Pain Respiratory: reports: No Symptoms Gastrointestinal: reports: No Symptoms Genitourinary: reports: No Symptoms Breasts: reports: No Symptoms Reported Musculoskeletal: reports: Muscle Pain, Muscle Weakness Neurological: reports: Weakness Endocrine: reports: No Symptoms Hematology/Lymphatic: reports: No Symptoms Psychiatric: reports: Anxiety - Risk Factors Known Risk Factors: Yes: Age, Gender, Hypercholesterolemia, Hypertension, Prior [place] /Emb Stroke, Other (CAD-->Stent) Vital Signs: Vital Signs Temperature 97.7 F 01/30/17 17:00 Pulse Rate 39 L 01/30/17 17:00 Respiratory Rate 20 01/30/17 17:00 Blood Pressure 119/52 01/30/17 17:00 O2 Sat by Pulse Oximetry (%) 99 01/30/17 16:08 Constitutional: Yes: Anxious Eyes: Yes: WNL HENT: Yes: WNL Neck: Yes: WNL Respiratory: Yes: Regular Gastrointestinal: Yes: Soft Renal/: Yes: Anuria JVD: No Carotid Bruit: No PMI: Non-Displaced Heart Sounds: Yes: S1, S2 Murmur: Yes: Systolic Murmur, Grade 2 Musculoskeletal: Yes: Muscle Weakness Extremities: Yes: Cool Edema: No Peripheral Pulses WNL: Yes Integumentary: Yes: WNL Neurological: Yes: Alert, Oriented, Weakness Psychiatric: Yes: Alert, Oriented - Other Data Labs, Other Data: CBC, BMP 01/30/17 10:20 01/30/17 10:20 INR, PTT INR 1.21 (0.82-1.09) H 01/30/17 10:20 Troponin, BNP 01/30/17 01/30/17 10:20 14:00 Troponin I 0.04 D 0.04 B-Natriuretic Peptide 80702.18 H Troponin, BNP 01/30/17 01/30/17 10:20 14:00 Troponin I 0.04 D 0.04 B-Natriuretic Peptide 44198.18 H Abnormal Lab Results 01/30/17 01/30/17 01/30/17 10:20 10:20 10:20 RBC 3.43 L Hgb 10.7 L Hct 31.4 L RDW 18.1 H D PT with INR 13.70 H INR 1.21 H Sodium 132 L Chloride 96 L BUN 55 H D Creatinine 2.0 H D Calcium 8.0 L Magnesium B-Natriuretic Peptide 77714.18 H Total Protein Albumin 01/31/17 01/31/17 01/31/17 05:28 05:28 05:28 RBC 3.32 L Hgb 10.2 L Hct 30.3 L RDW 17.9 H PT with INR 13.80 H INR 1.22 H Sodium 133 L Chloride BUN 58 H Creatinine 2.0 H Calcium 7.8 L Magnesium 1.2 L D B-Natriuretic Peptide Total Protein 6.0 L Albumin 3.2 L Imaging - Results EKG: Pending Problem List - Problems (1) Chest pain Assessment/Plan: TNI 0.04 x 2 (four hours apart). EKG: marked sinus bradycardia.TSH WN; on metoprolol (held due to bradycardia); r /o Atrial flutter. Hx coronawry stent 06/2016; hx multivessel CAD. Continue ASA and Plavix; on Lovenox. Statin. telemetry; serial EKGs. Will consider reevaluation of coronary arteries. Code(s): R07.9 - CHEST PAIN, UNSPECIFIED Qualifiers: Chest pain type: unspecified Qualified Code(s): R07.9 - Chest pain, unspecified (2) Hypertension Code(s): I10 - ESSENTIAL (PRIMARY) HYPERTENSION Qualifiers: Hypertension type: essential hypertension Qualified Code(s): I10 - Essential (primary) hypertension (3) Renal dysfunction Code(s): N28.9 - DISORDER OF KIDNEY AND URETER, UNSPECIFIED (4) Bradycardia Assessment/Plan: TSH WNL. On metoprolol: hold for the present time. Telemetry. Code(s): R00.1 - BRADYCARDIA, UNSPECIFIED (5) Diastolic CHF Code(s): I50.30 - UNSPECIFIED DIASTOLIC (CONGESTIVE) HEART FAILURE (6) Pulmonary hypertension, moderate to severe Code(s): I27.20 - PULMONARY HYPERTENSION, UNSPECIFIED (7) Ventral hernia Code(s): K43.9 - VENTRAL HERNIA WITHOUT OBSTRUCTION OR GANGRENE (8) Anxiety Code(s): F41.9 - ANXIETY DISORDER, UNSPECIFIED
[2017-01-30] MEDS ORDERED: MAG HYDROX/AL HYDROX/SIMETH 30 ML UNIT-DOSE CUP PO ONE (20:23)
[2017-01-30] MEDS: TAMSULOSIN HCL 0.4 MG CAP.ER.24H (FP) PO SCH (21:17)
[2017-01-30] MEDS: ALLOPURINOL 100 MG TABLET (FP) PO SCH (21:18)
[2017-01-30] MEDS: hydrALAZINE HCL 50 MG TABLET (FP) PO SCH (21:29)
[2017-01-30] MEDS: ATORVASTATIN CA 80 MG TABLET (FP) PO SCH (21:30)
[2017-01-30] MEDS ORDERED: FUROSEMIDE 20 MG TABLET (FP) PO SCH (22:00)
[2017-01-31 07:09] LABS: BASOPHIL 0.7 % (0-2.0); EOSINOPHIL 1.3 % (0-4.5); MCH 30.8 pg (25.7-33.7); MCHC 33.8 g/dl (32.0-35.9); MEAN CELL VOLUME 91.3 fl (80-96); MEAN PLT VOLUME 9.2 fl (7.5-11.1); NEUTROPHILS 62.8 % (42.8-82.8); PLATELET COUNT 176 K/MM3 (134-434); RDW 17.9 % (11.9-15.9); WHITE BLOOD COUNT 6.9 K/mm3 (4.0-10.0)
[2017-01-31 07:30] LABS: INR 1.22 (0.82-1.09); PROTHROMBIN TIME (PATIENT) 13.8 SEC (9.98-11.88)
[2017-01-31 07:33] LABS: ACTIVATED PTT 30.3 SECONDS (26.9-34.4)
[2017-01-31 08:17] LABS: ALBUMIN 3.2 g/dl (3.4-5.0); ALK PHOS 56 U/L (45-117); ANION GAP 10 (8-16); BILIRUBIN,TOTAL 0.8 mg/dL (0.2-1.0); CALCIUM 7.8 mg/dL (8.5-10.1); CO2 24 mmol/L (21-32); GLUCOSE,RANDOM 96 mg/dL (74-106); MAGNESIUM 1.2 mg/dL (1.8-2.4); SGOT/AST 27 U/L (15-37); SGPT/ALT 40 U/L (12-78)
[2017-01-31] MEDS ORDERED: MAGNESIUM SULF 50% (8.12 MEQ/2 ML-1 GM VIAL) IVPB ONE (08:51)
[2017-01-31] MEDS ORDERED: METOPROLOL SUCCINATE 25 MG TAB.SR.24H (FP) PO SCH (10:00)
[2017-01-31] MEDS ORDERED: ENOXAPARIN NA (PORCINE) 80 MG/0.8 ML DISP.SYRIN SQ SCH (10:00)
[2017-01-31] MEDS ORDERED: LISINOPRIL 5 MG TABLET (FP) PO SCH (10:00)
[2017-01-31] MEDS: CLOPIDOGREL BISULFATE 75 MG TABLET (FP) PO SCH (10:21)
[2017-01-31] MEDS: ASPIRIN 81 MG CHEWABLE TABLETS PO SCH (10:21)
[2017-01-31] MEDS: hydrALAZINE HCL 50 MG TABLET (FP) PO SCH ×2 (10:21→21:30)
[2017-01-31] MEDS: ISOSORBIDE MONONITRATE 30 MG TAB.SR.24H (FP) PO SCH (10:22)
[2017-01-31] MEDS: amLODIPine BESYLATE 10 MG TABLET (FP) PO SCH (10:22)
[2017-01-31] MEDS: DOCUSATE SODIUM 100 MG CAPSULE (FP) PO SCH (10:39)
[2017-01-31] MEDS ORDERED: SODIUM CHLORIDE 1,000 ML IV SCH ×2 (11:30)
--- NOTE | 2017-01-31 11:34 | PN ---
Progress Note, Physician Chief Complaint: c/o diarrhea History of Present Illness: The patient is an 89 year old white male, with a significant past medical history of HTN, HLD, diastolic CHF with severe Tricuspid regurgitation, Moderate aortic stenosis who presents to the emergency department for further evaluation of chest pain. Yesterday morning, patient experienced gradual onset of upper shoulder pain which radiated into his chest. Patient describes pain as heaviness and pressure-like. Patient reports chest pressure is exacerbated upon deep inspiration which is unusual for him. Patient immediately called his cardiac truck operator, and was sent to the ED for further evaluation. Patient reports high anxiety and stress due to hacking of his computer and credit cards. Patient denies any associated symptoms such as SOB, diaphoresis, nausea or vomiting. Note, patient reports similar event in May 25/2017 where he was admitted to [facility] for chest pain r/o ACS. Patient had positive stress test that revealed moderate zone of inferior defect from to apex compatible with reversible ischemia. Cardiology recommended cardiac catheterization and was transferred to [facility]. Patient had 3 stents placed and was discharged home. Last echocardiogram was 10/2015 which revealed normal LV size, function, thickness, no wall motion abnormality. Right atrium and left atrium dilated, moderate aortic stenosis and RVSP 50-60 (severe pulmonary HTN). Patient denies headache or dizziness. Patient denies fever, chills, abdominal pain, nausea, vomit, diarrhea or constipation. Patient denies dysuria, frequency , urgency or hematuria. Patient denies sick contacts or recent travel. Allergies: NKA Past surgical history: Umbilical hernia, stent placed on 06/2016 at [facility] by Dr. Ryan Oliveira. Social history: None PCP: Dr. Short Cardio: Comfort/Roxanne - Current Medication List Current Medications: Active Medications Allopurinol (Zyloprim -) 100 mg PO HS [facility] Last Admin: 01/30/17 21:18 Dose: 100 mg Amlodipine Besylate (Norvasc -) 10 mg PO DAILY [facility] Last Admin: 01/31/17 10:22 Dose: 10 mg Aspirin (Asa -) 81 mg PO DAILY [facility] Last Admin: 01/31/17 10:21 Dose: 81 mg Atorvastatin Calcium (Lipitor -) 80 mg PO HS [facility] Last Admin: 01/30/17 21:30 Dose: 80 mg Clopidogrel Bisulfate (Plavix -) 75 mg PO DAILY [facility] Last Admin: 01/31/17 10:21 Dose: 75 mg Docusate Sodium (Colace -) 200 mg PO DAILY [facility] Last Admin: 01/31/17 10:39 Dose: Not Given Enoxaparin Sodium (Lovenox -) 70 mg SQ DAILY [facility] Last Admin: 01/31/17 10:22 Dose: 70 mg Hydralazine HCl (Apresoline -) 50 mg PO BID [facility] Last Admin: 01/31/17 10:21 Dose: 50 mg Sodium Chloride (Normal Saline -) 1,000 mls @ 83 mls/hr IV ASDIR RIANNA Sodium Chloride (Normal Saline -) 1,000 mls @ 150 mls/hr IV ASDIR RIANNA Isosorbide Mononitrate (Imdur -) 60 mg PO DAILY [facility] Last Admin: 01/31/17 10:22 Dose: 60 mg Metoprolol Succinate (Toprol Xl -) 100 mg PO DAILY [facility] Last Admin: 01/31/17 10:39 Dose: Not Given Tamsulosin HCl (Flomax -) 0.4 mg PO HS [facility] Last Admin: 01/30/17 21:17 Dose: 0.4 mg - Objective Vital Signs: Vital Signs Temperature 98.7 F 01/31/17 08:00 Pulse Rate 47 L 01/31/17 08:00 Respiratory Rate 14 01/31/17 08:00 Blood Pressure 118/46 01/31/17 08:00 O2 Sat by Pulse Oximetry (%) 97 01/30/17 23:01 Eyes: Yes: WNL, Conjunctiva Clear, EOM Intact HENT: Yes: WNL, Atraumatic, Normocephalic Neck: Yes: WNL, Supple, Trachea Midline Cardiovascular: Yes: WNL, Regular Rate and Rhythm Respiratory: Yes: WNL, Regular, CTA Bilaterally Gastrointestinal: Yes: WNL, Normal Bowel Sounds Genitourinary: Yes: WNL Musculoskeletal: Yes: WNL Extremities: Yes: WNL Edema: No Integumentary: Yes: WNL Neurological: Yes: WNL, Alert, Oriented ...Motor Strength: WNL Psychiatric: Yes: WNL Labs: CBC, BMP 01/31/17 05:28 01/31/17 05:28 INR, PTT INR 1.22 (0.82-1.09) H 01/31/17 05:28 Assessment/Plan - Problems (1) Chest pain Assessment/Plan: EKG: marked sinus bradycardia.TSH WN; on metoprolol (held due to bradycardia); r /o Atrial flutter.repeated ekg pending Hx coronawry stent 06/2016; hx multivessel CAD. Continue ASA and Plavix; on Lovenox. Statin. telemetry; serial EKGs. C. Cath Tuesday f/u BUN /cr Code(s): R07.9 - CHEST PAIN, UNSPECIFIED Qualifiers: Chest pain type: unspecified Qualified Code(s): R07.9 - Chest pain, unspecified (2) Hypertension Code(s): I10 - ESSENTIAL (PRIMARY) HYPERTENSION Qualifiers: Hypertension type: essential hypertension Qualified Code(s): I10 - Essential (primary) hypertension (3) Renal dysfunction Code(s): N28.9 - DISORDER OF KIDNEY AND URETER, UNSPECIFIED (4) Bradycardia Assessment/Plan: TSH WNL. On metoprolol: hold for the present time. Telemetry. Code(s): R00.1 - BRADYCARDIA, UNSPECIFIED (5) Diastolic CHF Code(s): I50.30 - UNSPECIFIED DIASTOLIC (CONGESTIVE) HEART FAILURE (6) Pulmonary hypertension, moderate to severe Code(s): I27.20 - PULMONARY HYPERTENSION, UNSPECIFIED (7) Ventral hernia Code(s): K43.9 - VENTRAL HERNIA WITHOUT OBSTRUCTION OR GANGRENE (8) Anxiety Code(s): F41.9 - ANXIETY DISORDER, UNSPECIFIED
--- NOTE | 2017-01-31 11:57 | PN ---
Physical Exam: SUBJECTIVE: Patient seen and examined. Had sudden onset of more than 10 episodes of watery diarrhea overnight. Minimal mid-sternal chest pain persists. OBJECTIVE: Vital Signs Period Temp Pulse Resp BP Sys/Clifton Pulse Ox Last 24 Hr 97.7 F-99.8 F 36-47 14-20 104-123/46-72 96-99 GENERAL: The patient is awake, alert, and fully oriented, in no acute distress. LUNGS: Breath sounds equal, clear to auscultation bilaterally, no wheezes, no crackles, no accessory muscle use. HEART: Regular rate and rhythm, S1, S2, + murmur ABDOMEN: Soft, nontender, nondistended, normoactive bowel sounds, no guarding, no rebound, no hepatosplenomegaly, no masses. EXTREMITIES: 2+ pulses, warm, well-perfused, no edema. NEUROLOGICAL: Cranial nerves II through XII grossly intact. Normal speech, gait not observed. PSYCH: Anxious. SKIN: Warm, dry, normal turgor Laboratory Results - last 24 hr 01/30/17 01/30/17 01/30/17 12:00 14:00 21:45 WBC RBC Hgb Hct MCV MCH MCHC RDW Plt Count MPV Neutrophils % Lymphocytes % Monocytes % Eosinophils % Basophils % PT with INR INR PTT (Actin FS) Sodium Potassium Chloride Carbon Dioxide Anion Gap BUN Creatinine Creat Clearance w eGFR Random Glucose Calcium Magnesium Total Bilirubin AST ALT Alkaline Phosphatase Troponin I 0.04 0.05 Total Protein Albumin TSH 3.43 D 01/31/17 01/31/17 01/31/17 05:28 05:28 05:28 WBC 6.9 RBC 3.32 L Hgb 10.2 L Hct 30.3 L MCV 91.3 MCH 30.8 MCHC 33.8 RDW 17.9 H Plt Count 176 MPV 9.2 Neutrophils % 62.8 Lymphocytes % 25.1 Monocytes % 10.1 Eosinophils % 1.3 D Basophils % 0.7 PT with INR 13.80 H INR 1.22 H PTT (Actin FS) 30.3 Sodium 133 L Potassium 4.0 Chloride 99 Carbon Dioxide 24 Anion Gap 10 BUN 58 H Creatinine 2.0 H Creat Clearance w eGFR 31.62 Random Glucose 96 Calcium 7.8 L Magnesium 1.2 L D Total Bilirubin 0.8 AST 27 ALT 40 Alkaline Phosphatase 56 Troponin I Total Protein 6.0 L Albumin 3.2 L TSH Active Medications Generic Name Dose Route Start Last Admin Trade Name Alicia PRN Reason Stop Dose Admin Allopurinol 100 mg 01/30/17 22:00 01/30/17 21:18 Zyloprim - PO 100 mg HS RIANNA Administration Amlodipine Besylate 10 mg 01/31/17 10:00 01/31/17 10:22 Norvasc - PO 10 mg DAILY RIANNA Administration Aspirin 81 mg 01/31/17 10:00 01/31/17 10:21 Asa - PO 81 mg DAILY RIANNA Administration Atorvastatin Calcium 80 mg 01/30/17 22:00 01/30/17 21:30 Lipitor - PO 80 mg HS RIANNA Administration Clopidogrel Bisulfate 75 mg 01/31/17 10:00 01/31/17 10:21 Plavix - PO 75 mg DAILY RIANNA Administration Docusate Sodium 200 mg 01/31/17 10:00 01/31/17 10:39 Colace - PO Not Given DAILY RIANNA Enoxaparin Sodium 70 mg 01/31/17 10:00 01/31/17 10:22 Lovenox - SQ 70 mg DAILY RIANNA Administration Hydralazine HCl 50 mg 01/30/17 22:00 01/31/17 10:21 Apresoline - PO 50 mg BID RIANNA Administration Sodium Chloride 1,000 mls @ 83 mls/hr 01/31/17 11:30 Normal Saline - IV ASDIR RIANNA Sodium Chloride 1,000 mls @ 150 mls/hr 01/31/17 11:30 Normal Saline - IV ASDIR RIANNA Isosorbide Mononitrate 60 mg 01/31/17 10:00 01/31/17 10:22 Imdur - PO 60 mg DAILY RIANNA Administration Metoprolol Succinate 100 mg 01/31/17 10:00 01/31/17 10:39 Toprol Xl - PO Not Given DAILY RIANNA Tamsulosin HCl 0.4 mg 01/30/17 22:00 01/30/17 21:17 Flomax - PO 0.4 mg HS RIANNA Administration ASSESSMENT/PLAN 89 year-old male with a PMH significant for HTN, HLD, CAD s/p stents x 3, diastolic heart failure, severe TR, moderate , and gout. Admitted for symptomatic bradycardia, chest pain, aflutter, and BERT. Now with diarrhea. Symptomatic bradycardia Aflutter Chest pain Coronary artery disease s/p stents x 3 --HR in 40s --troponin neg x 2 --plan is to transfer to [facility] on Tuesday for cardiac cath --full dose lovenox switched to heparin drip; continue ASA, Plavix, isosorbide, Lipitor; hold AV mary blocking agents Diastolic heart failure Severe TR Moderate --patient appears dry, hold diuretics --monitor fluid status, respiratory status closely Acute on chronic renal insufficiency --Cr 2.0, baseline 1.3; likely due to low volume state and renal hypoperfusion in setting of Lasix/Lisinopril/diarrhea --start IV fluids --urine studies pending --renal following --will need contrast-induced nephropathy prophylaxis; IV fluids, mucomyst prior to procedure Azotemia --hold Lasix, home lisinopril Hypertension --continue hydralazine, amlodipine Hyperlipidemia --continue Lipitor Gout --continue allopurinol DVT prophylaxis: on heparin drip Dispo: transfer to [facility] for cardiac cath on Tuesday. Full code. Visit type - Emergency Visit Emergency Visit: Yes ED Registration Date: 01/31/17 Care time: The patient presented to the Emergency Department on the above date and was hospitalized for further evaluation of their emergent condition. - New Patient This patient is new to me today: No - Critical Care Critical Care patient: No
[2017-01-31] MEDS: METRONIDAZOLE 500 MG PREMIXED 500 MG/100 ML MG IVPB SCH ×2 (13:15→17:41)
--- NOTE | 2017-01-31 14:52 | EKG ---
Test Reason : Blood Pressure : / mmHG Vent. Rate : 050 BPM Atrial Rate : 242 BPM P-R Int : 000 ms QRS Dur : 104 ms QT Int : 480 ms P-R-T Axes : 000 018 016 degrees QTc Int : 437 ms ATRIAL FLUTTER WITH VARIABLE A-V BLOCK ABNORMAL ECG WHEN COMPARED WITH ECG OF 30-JAN-2017 09:49, NO SIGNIFICANT CHANGE WAS FOUND Confirmed by ZONIA BARROS MD ([id number]) on 01/31/2017 2:52:23 PM Referred By: Confirmed By:ZONIA BARROS MD
--- NOTE | 2017-01-31 15:07 | EKG ---
Test Reason : Blood Pressure : / mmHG Vent. Rate : 049 BPM Atrial Rate : 056 BPM P-R Int : 000 ms QRS Dur : 096 ms QT Int : 472 ms P-R-T Axes : 000 024 031 degrees QTc Int : 426 ms ATRIAL FLUTTER WITH SLOW VENTRICULAR RESPONSE ABNORMAL ECG WHEN COMPARED WITH ECG OF 13-JUN-2016 15:30, ATRIAL FLUTTER HAS REPLACED SINUS RHYTHM VENT. RATE HAS DECREASED Confirmed by FIORELLA MARTIN, ZONIA ([id number]) on 01/31/2017 3:06:41 PM Referred By: Confirmed By:ZONIA BARROS MD
[2017-01-31 17:26] LABS: URINE APPEARANCE CLEAR; URINE BILIRUBIN NEGATIVE (NEGATIVE); URINE BLOOD NEGATIVE (NEGATIVE); URINE COLOR YELLOW; URINE GLUCOSE (UA) NEGATIVE (NEGATIVE); URINE KETONE NEGATIVE (NEGATIVE); URINE LEUK ESTERASE NEGATIVE (NEGATIVE); URINE NITRITE NEGATIVE (NEGATIVE); URINE PROTEIN NEGATIVE (NEGATIVE); URINE UROBILINOGEN NEGATIVE mg/dL (0.2-1.0)
[2017-01-31 17:38] VITALS: BMI 26.0
--- NOTE | 2017-01-31 17:38 | CON.NEP ---
Consult Consult Specialty:: Nephrology Referred by:: JEFF Loyola Reason for Consultation:: BERT on CKD - History of Present Illness Chief Complaint: Chest pain History of Present Illness: This is a 89 year old gentleman with PMhx of CAD s/p Cardiac stents, HTN, Hyperlipidemia, Moderate , CKD presented with complaints of chest pain and found to have BUN/Cr of 55/2. Pt reports having a high Cr prior to his cardiac cath in May of this year that required some IVF to bring it down before the catheterization could be done. pt reports making good urine. Is on Lasix and ACEi at home. No NSIAD use. No recent contrast exposure. Pt did have a MRI with Jonathan to access renal profusion. No recent Abx use. No N/V. + diarrhea in the hospital. - History Source History Provided By: Patient Limitations to Obtaining History: No Limitations - Past Medical History Cardio/Vascular: Yes: CHF, HTN, Hyperlipdemia Rheumatology: Yes: Gout - Alcohol/Substance Use Hx Alcohol Use: No - Smoking History Smoking history: Never smoked Have you smoked in the past 12 months: No Aproximately how many cigarettes per day: 0 Home Medications - Allergies Allergies/Adverse Reactions: Allergies Allergy/AdvReac Type Severity Reaction Status Date / Time No Known Allergies Allergy Verified 01/30/17 09:44 - Home Medications Home Medications: Ambulatory Orders Allopurinol [Zyloprim -] 100 mg PO HS 12/21/11 Tamsulosin HCl 0.4 mg PO HS 12/21/11 Amlodipine Besylate [Norvasc -] 10 mg PO DAILY 07/19/15 Aspirin [ASA -] 81 mg PO DAILY 07/19/15 Atorvastatin Ca [Lipitor] 80 mg PO HS 07/19/15 Hydralazine HCl [Apresoline -] 50 mg PO BID 07/19/15 Isosorbide Mononitrate [Imdur -] 60 mg PO DAILY 07/19/15 Metoprolol Succinate [Toprol XL -] 100 mg PO DAILY 07/19/15 Lisinopril 5 mg PO DAILY 10/29/15 Clopidogrel Bisulfate [Clopidogrel] 75 mg PO DAILY 01/30/17 Docusate Sodium [Colace -] 200 mg PO DAILY 01/30/17 Furosemide 20 mg PO BID 01/30/17 Triamcinolone 0.1% Cream [Aristocort] 1 applic TP BID 01/30/17 Family Disease History - Family Disease History Family History: Unremarkable Review of Systems - Review of Systems Constitutional: reports: No Symptoms Eyes: reports: No Symptoms HENT: reports: No Symptoms Neck: reports: No Symptoms Cardiovascular: reports: Chest Pain. denies: Edema, Palpitations, Shortness of Breath Respiratory: reports: No Symptoms Gastrointestinal: reports: Diarrhea. denies: Abdominal Pain, Nausea, Vomiting Genitourinary: reports: No Symptoms Musculoskeletal: reports: No Symptoms Integumentary: reports: No Symptoms Neurological: reports: No Symptoms Nephrology Consult - Height Height: 5 ft 4 in - Weight Weight: 68.855 kg - BMI Body Mass Index (BMI): 26.0 - Lab Results CBC,BMP: CBC, BMP 01/31/17 05:28 01/31/17 05:28 Anion Gap: Anion Gap Anion Gap 10 (8-16) 01/31/17 05:28 - Imaging Chest X-ray: Report Reviewed - Physical Examination Vital Signs: Vital Signs Temperature 98.6 F 01/31/17 14:15 Pulse Rate 44 L 01/31/17 14:15 Respiratory Rate 01/31/17 14:15 Blood Pressure 108/41 01/31/17 14:15 O2 Sat by Pulse Oximetry (%) 96 01/31/17 08:00 Constitutional: Yes: No Distress, Calm Eyes: Yes: Conjunctiva Clear HENT: Yes: Atraumatic Neck: Yes: Supple Cardiovascular: Yes: Regular Rate and Rhythm, S1, S2. No: JVD Respiratory: Yes: Regular, CTA Bilaterally. No: Rales, Rhonchi, Wheezes Gastrointestinal: Yes: Normal Bowel Sounds, Soft. No: Tenderness Renal/: No: Anuria, Bladder Distention Extremities: No: Cold, Cool, Cyanosis Edema: No Neurological: Yes: Alert, Oriented Assessment/Plan 89 year old gentleman with PMhx of CAD s/p Cardiac stents, HTN, Hyperlipidemia, Moderate , CKD presented with complaints of chest pain and found to have BUN/ Cr of 55/2. #Acute on Chronic Renal Insuffiencey likely due to hypovolemia/renal hypoprofusion in setting of lasix/ACEi/Diarreha check urine for FeNa, FeUrea Check UPCR Renal and bladder US start NS at 83 cc per hour Trend BUN/cr daily Dose all meds for CrCl less then 30 avoid NSAIDs, IV contarst #Contrast Nephropathy Prophylaxis Pt is at increased risk of DAYDAY at the present time will attempt to improve Cr with IVF will calculate total risk when Cr stable will benefit from Mucomyst prior to procedure #Chest Pain/ Cardiology following for Cardiac cath when renal function improves #Hypertension continue Amlodipne, Hydrralazine Thank you Luiz Soni DO
[2017-01-31] MEDS ORDERED: HEPARIN NA (PORCINE) 5,000 UNITS/ML 1ML VIAL IVPUSH PRN (18:03)
[2017-01-31 21:15] LABS: URINE LEUK ESTERASE NEGATIVE (NEGATIVE)
[2017-01-31] MEDS: ALLOPURINOL 100 MG TABLET (FP) PO SCH (21:30)
[2017-01-31] MEDS: TAMSULOSIN HCL 0.4 MG CAP.ER.24H (FP) PO SCH (21:30)
[2017-01-31] MEDS: ATORVASTATIN CA 80 MG TABLET (FP) PO SCH (21:30)
[2017-01-31] MEDS: HEPARIN INFUSION - 25,000 UNITS/500 ML INFUS.BAG IVPB SCH (22:18)
[2017-02-01] MEDS: METRONIDAZOLE 500 MG PREMIXED 500 MG/100 ML MG IVPB SCH ×2 (01:46→09:46)
[2017-02-01 05:21] LABS: BASOPHIL 0.7 % (0-2.0); EOSINOPHIL 1.8 % (0-4.5); MCHC 33.6 g/dl (32.0-35.9); MEAN CELL VOLUME 92.2 fl (80-96); MEAN PLT VOLUME 9.1 fl (7.5-11.1); NEUTROPHILS 57.9 % (42.8-82.8); PLATELET COUNT 175 K/MM3 (134-434); WHITE BLOOD COUNT 5.6 K/mm3 (4.0-10.0)
[2017-02-01 05:46] LABS: ANION GAP 9 (8-16); CALCIUM 7.5 mg/dL (8.5-10.1); CO2 25 mmol/L (21-32); CREATININE 1.5 mg/dL (0.7-1.3); GLUCOSE,RANDOM 105 mg/dL (74-106); MAGNESIUM 1.7 mg/dL (1.8-2.4); PHOSPHOROUS 3.1 mg/dL (2.5-4.9)
[2017-02-01] MEDS: HEPARIN NA (PORCINE) 5,000 UNITS/ML 1ML VIAL IVPUSH PRN ×2 (06:46→08:42)
[2017-02-01] MEDS: HEPARIN INFUSION - 25,000 UNITS/500 ML INFUS.BAG IVPB SCH ×2 (08:43→15:57)
--- NOTE | 2017-02-01 08:43 | PN ---
Physical Exam: SUBJECTIVE: Patient seen and examined. Doing well. Asymptomatic. States diarrhea has improved. OBJECTIVE: Vital Signs Period Temp Pulse Resp BP Sys/Clifton Pulse Ox Last 24 Hr 97.7 F-98.6 F 44-80 17-20 108-124/38-60 96 GEN: AAOx3, NAD, Lying comfortably, pacers on back HEENT: PERRLA, EOMi CV: S1, S2, RRR LUNG: CTABL ABD: Soft, NT, ND, normoactive BS MSK: No edema, no erythema NEURO: CN 2-12 intact, no MSK or sensation deficits Active Medications Generic Name Dose Route Start Last Admin Trade Name Freq PRN Reason Stop Dose Admin Allopurinol 100 mg 01/30/17 22:00 01/31/17 21:30 Zyloprim - PO 100 mg HS RIANNA Administration Amlodipine Besylate 10 mg 01/31/17 10:00 01/31/17 10:22 Norvasc - PO 10 mg DAILY RIANNA Administration Aspirin 81 mg 01/31/17 10:00 01/31/17 10:21 Asa - PO 81 mg DAILY RIANNA Administration Atorvastatin Calcium 80 mg 01/30/17 22:00 01/31/17 21:30 Lipitor - PO 80 mg HS RIANNA Administration Clopidogrel Bisulfate 75 mg 01/31/17 10:00 01/31/17 10:21 Plavix - PO 75 mg DAILY RIANNA Administration Docusate Sodium 200 mg 01/31/17 10:00 01/31/17 10:39 Colace - PO Not Given DAILY RIANNA Heparin Sodium (Porcine) 1,000 unit 01/31/17 18:03 02/01/17 06:46 Heparin - IVPUSH 1,000 unit PRN PRN Administration Heparin Heparin Sodium (Porcine) 5,000 unit 01/31/17 18:03 Heparin - IVPUSH PRN PRN Heparin Hydralazine HCl 50 mg 01/30/17 22:00 01/31/17 21:30 Apresoline - PO 50 mg BID RIANNA Administration Sodium Chloride 1,000 mls @ 83 mls/hr 01/31/17 11:30 01/31/17 12:00 Normal Saline - IV 83 mls/hr ASDIR RIANNA Administration Metronidazole 500 mg in 100 mls @ 100 mls/hr 01/31/17 12:30 02/01/17 01:46 Flagyl 500mg Premixed Ivpb - IVPB 100 mls/hr Q8H-IV RIANNA Administration Heparin Sodium/Dextrose 25,000 units in 500 mls @ 16 mls/hr 01/31/17 18:15 06:45 Heparin Infusion - IVPB 900 units/hr TITR RIANNA 18 mls/hr Protocol Titration 800 UNITS/HR Isosorbide Mononitrate 60 mg 01/31/17 10:00 01/31/17 10:22 Imdur - PO 60 mg DAILY RIANNA Administration Magnesium Sulfate 1 gm 02/01/17 08:40 Magnesium Sulfate IVPB 02/01/17 08:41 ONCE ONE Tamsulosin HCl 0.4 mg 01/30/17 22:00 01/31/17 21:30 Flomax - PO 0.4 mg HS RIANNA Administration ASSESSMENT/PLAN: Mr Pham is an 89yo M with PMHx of HTN, HLD, dCHF, PA s/p 3 stents in May 2016, who presented to the ER w/ chest pressure that had atypical features ( pleuritic, assoc w/ anxiety) # Chest Pain - History of multivessel CAD is concerning for ACS. Trops mildly elevated 0.04 w /o EKG changes. Continue ASA 81, Plavix 75, Statin for now. Since renal function is now optimized, plan is likely to transfer for cardiac cath evaluation on 02/02 # BERT - Cr has improved to baseline 1.5 with fluids and resolution of diarrhea. Consistent w/ FeUrea 20.4% which suggested a prerenal etiology. - Decreased IVNS to 65cc/hr, plan for cardiac cath tmrw, thus getting Mucomyst prior to cath # Afib - New from May 2016. Could be 2/2 the patients PA. At times in slow ventricular response which leads to bradycardia in the 40s. Bradycardia improved after holding home Toprol XL 100. Heparin drip started due to high CHADsVASc 5. If patient goes into RVR, may need to restart Toprol at lower dose. # Diarrhea - Self resolved since yesterday. Unlikely infectious cause. C.diff Ag+ and Toxin neg, likely remote past Cdiff infection. D/c Flagyl # dCHF - Was on home Lasix, stopped due to prerenal BERT, started on fluids, not fluid overloaded erum, can continue at discharge # HTN - Continue home Norvasc 10 + Hydralazine 50 BID + Imdur 60 daily. Held Toprol XL 100 daily due to bradycardia. BP still well controlled # Gout - Continue home Allopurinol 100 HS # Constipation - Continue home Colace 200 daily # BPH - Continue Flomax 0.4 HS # PPx - On Heparin drip, no GI needed, no PT ordered # FEN - Low rate IVNS 65cc, elec wnl, sodium controlled diet # Dispo - Plan for cath on 02/02, Cr has finally stabilized. Continue IVF and mucomyst d/w Dr Thelma Bourgeois MD - PGY1 resident Internal Medicine Visit type - Emergency Visit Emergency Visit: No - New Patient This patient is new to me today: No - Critical Care Critical Care patient: No - Discharge Referral Referred to [facility] Med P.C.: No
[2017-02-01] MEDS ORDERED: MAGNESIUM SULF 50% (8.12 MEQ/2 ML-1 GM VIAL) IVPB ONE (09:00)
[2017-02-01] MEDS: CLOPIDOGREL BISULFATE 75 MG TABLET (FP) PO SCH (09:45)
[2017-02-01] MEDS: DOCUSATE SODIUM 100 MG CAPSULE (FP) PO SCH (09:46)
[2017-02-01] MEDS: ISOSORBIDE MONONITRATE 30 MG TAB.SR.24H (FP) PO SCH (09:46)
[2017-02-01] MEDS: hydrALAZINE HCL 50 MG TABLET (FP) PO SCH ×2 (09:49→21:48)
[2017-02-01] MEDS: ASPIRIN 81 MG CHEWABLE TABLETS PO SCH (09:49)
[2017-02-01] MEDS: amLODIPine BESYLATE 10 MG TABLET (FP) PO SCH (09:50)
--- NOTE | 2017-02-01 12:33 | PN ---
Progress Note (short form) - Note Progress Note: Renal follow up for BERT on CKD Pt seen and examined at the bedside no acute complaints sitting in chair, comfortable at the bedside denies any CP or SOB today no LE swelling Vital Signs Temperature 98.8 F 02/01/17 10:00 Pulse Rate 76 02/01/17 10:00 Respiratory Rate 18 02/01/17 10:00 Blood Pressure 132/52 02/01/17 10:00 O2 Sat by Pulse Oximetry (%) 96 01/31/17 19:53 Intake & Output 01/29/17 01/30/17 01/31/17 02/01/17 23:59 23:59 23:59 23:59 Intake Total 984 648 3114 Balance 109 420 1449 Weight 68.039 kg 68.855 kg NAD RRR, no M/R no JVD CTA, no rales or wheeze soft NT/ND No LE edema CBC, BMP 02/01/17 05:05 02/01/17 05:05 Current Medications Allopurinol (Zyloprim -) 100 mg PO HS [facility] Last Admin: 01/31/17 21:30 Dose: 100 mg Amlodipine Besylate (Norvasc -) 10 mg PO DAILY [facility] Last Admin: 02/01/17 09:50 Dose: 10 mg Aspirin (Asa -) 81 mg PO DAILY [facility] Last Admin: 02/01/17 09:49 Dose: 81 mg Atorvastatin Calcium (Lipitor -) 80 mg PO HS [facility] Last Admin: 01/31/17 21:30 Dose: 80 mg Clopidogrel Bisulfate (Plavix -) 75 mg PO DAILY [facility] Last Admin: 02/01/17 09:45 Dose: 75 mg Docusate Sodium (Colace -) 200 mg PO DAILY [facility] Last Admin: 02/01/17 09:46 Dose: Not Given Heparin Sodium (Porcine) (Heparin -) 1,000 unit IVPUSH PRN PRN PRN Reason: Heparin Last Admin: 02/01/17 08:42 Dose: 1,000 unit Heparin Sodium (Porcine) (Heparin -) 5,000 unit IVPUSH PRN PRN PRN Reason: Heparin Hydralazine HCl (Apresoline -) 50 mg PO BID [facility] Last Admin: 02/01/17 09:49 Dose: 50 mg Sodium Chloride (Normal Saline -) 1,000 mls @ 83 mls/hr IV ASDIR [facility] Last Admin: 01/31/17 12:00 Dose: 83 mls/hr Metronidazole (Flagyl 500mg Premixed Ivpb -) 500 mg in 100 mls @ 100 mls/hr IVPB Q8H-IV RIANNA Last Admin: 02/01/17 09:46 Dose: 100 mls/hr Heparin Sodium/Dextrose (Heparin Infusion -) 25,000 units in 500 mls @ 16 mls/ hr IVPB TITR RIANNA; 800 UNITS/HR PRN Reason: Protocol Last Admin: 02/01/17 08:43 Dose: 1,000 units/hr, 20 mls/hr Isosorbide Mononitrate (Imdur -) 60 mg PO DAILY [facility] Last Admin: 02/01/17 09:46 Dose: 60 mg Tamsulosin HCl (Flomax -) 0.4 mg PO HS [facility] Last Admin: 01/31/17 21:30 Dose: 0.4 mg 89 year old gentleman with PMhx of CAD s/p Cardiac stents, HTN, Hyperlipidemia, Moderate , CKD presented with complaints of chest pain and found to have BUN/ Cr of 55/2. #Acute on Chronic Renal Insuffiencey likely due to hypovolemia/renal hypoprofusion in setting of lasix/ACEi/Diarreha Renal function pre-renal in etiology improving with IVF decrease IVF rate to 60cc per hour #Contrast Nephropathy Prophylaxis with Cr of 1.5 risk of DAYDAY is 14% and risk of dialysis dependent injury is 0.12 % as calculated by the DAYDAY calculator developed by Deejay et al. these risks were explained to the pt and will continue isotonic IVF start Mucomyst 1200mg BID x 4 doses case discussed with cardiology #Chest Pain/ Cardiology following for Cardiac cath when renal function improves #Hypertension continue Amlodipne, Hydrralazine Thank you Luiz Soni DO
[2017-02-01] MEDS ORDERED: SODIUM CHLORIDE 1,000 ML IV SCH (12:34)
[2017-02-01] MEDS: ACETYLCYSTEINE 20% 200MG/ML 30 ML VIAL *FOR ORAL / INH USE ONLY PO SCH (13:14)
--- NOTE | 2017-02-01 13:56 | PN ---
Teaching Attending Note Name of Resident: Byron Bourgeois ATTENDING PHYSICIAN STATEMENT I saw and evaluated the patient. I reviewed the resident's note and discussed the case with the resident. I agree with the resident's findings and plan as documented. SUBJECTIVE:asymptomatic. states he had no BM in 36H. denies Cp, SOB, dizzyness, blurred vision, fever, chills, palpitations, N/V/C/D OBJECTIVE: Last Vital Signs Temp Pulse Resp BP Pulse Ox 98.8 F 76 18 132/52 96 02/01/17 10:00 02/01/17 10:00 02/01/17 10:00 02/01/17 10:00 01/31/17 19:53 General NAD CV S1 S2 + no murmur Lungs CTA B/L no wheezing/rales/rhonchi Abdomen soft NT/ND Extremities no pedal edema ASSESSMENT AND PLAN: 89 year-old male with a PMH significant for HTN, HLD, CAD s/p stents x 3, diastolic heart failure, severe TR, moderate , and gout. Admitted for symptomatic bradycardia, chest pain, aflutter, and BERT 1. Symptomatic bradycardia- likely due to beta-london but concerns for ischemia. cardiac enzymes neg x2. toprol held with good response. cont to hold at this time. cont cardiac monitoring, may need to re-start at lower dose. plan for cardiac cath tomorrow. on asa/plavix 2. New onset Afib- rate controlled. hold betablocker at this time. on hep ggt 3. Diarrhea- 10 episodes in 1 day and self-resolved. no repeat episodes since then .cdiff ag + toxin -. stool studies negative. d/c flagyl. 4. Acute on CKD- mauricioley pre-renal. now improved. reduce IVF. will get mucomyst reduce chances of contrast induced nephropathy. nephrology on board 5. Normocytic anemia- no signs of bleeding. possible dilutional. repeat CBC. check iron studies. no signs of bleeding. no indicaiton for txn. 6. Hypomagnesemia- mg 800mg 7. HTN- controlled. 8. distolic chf 9. Moderate 10. dyslipidemia- statin 11. gout- on allopurinol 12. DVT ppx- hep ggt 13. transfer to [facility] tomorrow for cardiac cath.
[2017-02-01] MEDS ORDERED: DOCUSATE SODIUM 100 MG CAPSULE (FP) PO PRN (16:38)
[2017-02-01] MEDS ORDERED: POTASSIUM CHLORIDE TABS 20 MEQ TABLET.ER (FP) PO ONE (16:47)
--- NOTE | 2017-02-01 16:59 | PN ---
Progress Note, Physician Chief Complaint: Pt denies chest pain or dyspnea; less anxious; eating dinner. and son at bedside. History of Present Illness: Pt A&Ox3; son and at bedside; asymptomatic. - Current Medication List Current Medications: Active Medications Acetylcysteine (Mucomyst 20 Oral / Inh Use Only*) 1,200 mg PO Q12H [facility] Stop: 02/03/17 00:46 Last Admin: 02/01/17 13:14 Dose: 1,200 mg Allopurinol (Zyloprim -) 100 mg PO HS [facility] Last Admin: 01/31/17 21:30 Dose: 100 mg Amlodipine Besylate (Norvasc -) 10 mg PO DAILY [facility] Last Admin: 02/01/17 09:50 Dose: 10 mg Aspirin (Asa -) 81 mg PO DAILY [facility] Last Admin: 02/01/17 09:49 Dose: 81 mg Atorvastatin Calcium (Lipitor -) 80 mg PO HS [facility] Last Admin: 01/31/17 21:30 Dose: 80 mg Clopidogrel Bisulfate (Plavix -) 75 mg PO DAILY [facility] Last Admin: 02/01/17 09:45 Dose: 75 mg Docusate Sodium (Colace -) 200 mg PO DAILY PRN PRN Reason: CONSTIPATION Heparin Sodium (Porcine) (Heparin -) 1,000 unit IVPUSH PRN PRN PRN Reason: Heparin Last Admin: 02/01/17 08:42 Dose: 1,000 unit Heparin Sodium (Porcine) (Heparin -) 5,000 unit IVPUSH PRN PRN PRN Reason: Heparin Hydralazine HCl (Apresoline -) 50 mg PO BID [facility] Last Admin: 02/01/17 09:49 Dose: 50 mg Heparin Sodium/Dextrose (Heparin Infusion -) 25,000 units in 500 mls @ 16 mls/ hr IVPB TITR RIANNA; 800 UNITS/HR PRN Reason: Protocol Last Admin: 02/01/17 15:57 Dose: 1,000 units/hr, 20 mls/hr Sodium Chloride (Normal Saline -) 1,000 mls @ 65 mls/hr IV ASDIR [facility] Last Admin: 02/01/17 13:15 Dose: 65 mls/hr Isosorbide Mononitrate (Imdur -) 60 mg PO DAILY [facility] Last Admin: 02/01/17 09:46 Dose: 60 mg Tamsulosin HCl (Flomax -) 0.4 mg PO HS [facility] Last Admin: 01/31/17 21:30 Dose: 0.4 mg - Objective Vital Signs: Vital Signs Temperature 98.7 F 02/01/17 14:05 Pulse Rate 78 02/01/17 14:05 Respiratory Rate 18 02/01/17 14:05 Blood Pressure 144/61 02/01/17 14:05 O2 Sat by Pulse Oximetry (%) 98 02/01/17 09:00 Constitutional: Yes: Calm Eyes: Yes: WNL HENT: Yes: WNL Neck: Yes: WNL Cardiovascular: Yes: Regular Rate and Rhythm Respiratory: Yes: WNL Gastrointestinal: Yes: WNL ...Rectal Exam: Yes: Deferred Genitourinary: No: Anuria Breast(s): Yes: WNL Musculoskeletal: Yes: WNL Extremities: Yes: WNL Edema: No Peripheral Pulses WNL: Yes Integumentary: Yes: WNL Neurological: Yes: WNL Psychiatric: Yes: Other (anxiety) Labs: CBC, BMP 02/01/17 05:05 02/01/17 05:05 INR, PTT INR 1.22 (0.82-1.09) H 01/31/17 05:28 Abnormal Lab Results 02/01/17 02/01/17 14:20 18:00 RBC 3.38 L Hgb 10.6 L D Hct 31.4 L D RDW 18.0 H PTT (Actin FS) 57.8 H D Problem List - Problems (1) Chest pain Assessment/Plan: HR improved (off beta london; will restart at low dose). BUN/Cr improving with fluids; appreciate Dr. Soni's input. Pt for coronary angiogram tomorrow at [facility]. Maintain electrolytes (keep K 4-4.5, Mg 2-2.3, PO4 2.5-3.5).. Code(s): R07.9 - CHEST PAIN, UNSPECIFIED Qualifiers: Chest pain type: unspecified Qualified Code(s): R07.9 - Chest pain, unspecified (2) Hypertension Code(s): I10 - ESSENTIAL (PRIMARY) HYPERTENSION Qualifiers: Hypertension type: essential hypertension Qualified Code(s): I10 - Essential (primary) hypertension (3) Renal dysfunction Code(s): N28.9 - DISORDER OF KIDNEY AND URETER, UNSPECIFIED (4) Bradycardia Assessment/Plan: Improving Heart rate. On metoprolol: reduce dose. Telemetry. TSH WNL. Code(s): R00.1 - BRADYCARDIA, UNSPECIFIED (5) Diastolic CHF Code(s): I50.30 - UNSPECIFIED DIASTOLIC (CONGESTIVE) HEART FAILURE (6) Pulmonary hypertension, moderate to severe Code(s): I27.20 - PULMONARY HYPERTENSION, UNSPECIFIED (7) Ventral hernia Code(s): K43.9 - VENTRAL HERNIA WITHOUT OBSTRUCTION OR GANGRENE (8) Anxiety Code(s): F41.9 - ANXIETY DISORDER, UNSPECIFIED
[2017-02-01 18:42] LABS: MCH 31.5 pg (25.7-33.7); MCHC 33.8 g/dl (32.0-35.9); MEAN CELL VOLUME 92.9 fl (80-96); MEAN PLT VOLUME 9.5 fl (7.5-11.1); PLATELET COUNT 182 K/MM3 (134-434)
[2017-02-01] MEDS: ALLOPURINOL 100 MG TABLET (FP) PO SCH (21:48)
[2017-02-01] MEDS: ATORVASTATIN CA 80 MG TABLET (FP) PO SCH (21:48)
[2017-02-01] MEDS: TAMSULOSIN HCL 0.4 MG CAP.ER.24H (FP) PO SCH (21:48)
[2017-02-02] MEDS: ACETYLCYSTEINE 20% 200MG/ML 30 ML VIAL *FOR ORAL / INH USE ONLY PO SCH (00:36)
[2017-02-02 05:48] VITALS: BP 146/70; PULSE 94; TEMP 98.2
[2017-02-02] MEDS: hydrALAZINE HCL 50 MG TABLET (FP) PO SCH (06:22)
[2017-02-02] MEDS: CLOPIDOGREL BISULFATE 75 MG TABLET (FP) PO SCH (06:23)
[2017-02-02] MEDS: ASPIRIN 81 MG CHEWABLE TABLETS PO SCH (06:23)
[2017-02-02] MEDS: amLODIPine BESYLATE 10 MG TABLET (FP) PO SCH (06:23)
[2017-02-02] MEDS: ISOSORBIDE MONONITRATE 30 MG TAB.SR.24H (FP) PO SCH (06:23)
--- NOTE | 2017-02-02 07:16 | PN ---
Progress Note, Physician Chief Complaint: Pt asymptomatic. History of Present Illness: The patient is an 89 year old white male, with a significant past medical history of HTN, HLD, diastolic CHF with severe Tricuspid regurgitation, Moderate aortic stenosis who presents to the emergency department for further evaluation of chest pain. Yesterday morning, patient experienced gradual onset of upper shoulder pain which radiated into his chest. Patient describes pain as heaviness and pressure-like. Patient reports chest pressure is exacerbated upon deep inspiration which is unusual for him. 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 Patient reports high anxiety and stress due to hacking of his computer and credit cards. Patient denies any associated symptoms such as SOB, diaphoresis, nausea or vomiting. Patient reports similar event in May 25/2017 where he was admitted to [facility] for chest pain r/o ACS. Patient had positive stress test that revealed moderate zone of inferior defect from to apex compatible with reversible ischemia. Cardiology recommended cardiac catheterization and was transferred to [facility]. Patient had 3 stents placed and was discharged home. - Current Medication List Current Medications: Active Medications Acetylcysteine (Mucomyst 20 Oral / Inh Use Only*) 1,200 mg PO Q12H [facility] Stop: 02/03/17 00:46 Last Admin: 02/02/17 00:36 Dose: 1,200 mg Allopurinol (Zyloprim -) 100 mg PO [facility] Last Admin: 02/01/17 21:48 Dose: 100 mg Amlodipine Besylate (Norvasc -) 10 mg PO DAILY [facility] Last Admin: 02/02/17 06:23 Dose: 10 mg Aspirin (Asa -) 81 mg PO DAILY [facility] Last Admin: 02/02/17 06:23 Dose: 81 mg Atorvastatin Calcium (Lipitor -) 80 mg PO HS [facility] Last Admin: 02/01/17 21:48 Dose: 80 mg Clopidogrel Bisulfate (Plavix -) 75 mg PO DAILY [facility] Last Admin: 02/02/17 06:23 Dose: 75 mg Docusate Sodium (Colace -) 200 mg PO DAILY PRN PRN Reason: CONSTIPATION Heparin Sodium (Porcine) (Heparin -) 1,000 unit IVPUSH PRN PRN PRN Reason: Heparin Last Admin: 02/01/17 08:42 Dose: 1,000 unit Heparin Sodium (Porcine) (Heparin -) 5,000 unit IVPUSH PRN PRN PRN Reason: Heparin Hydralazine HCl (Apresoline -) 50 mg PO BID [facility] Last Admin: 02/02/17 06:22 Dose: 50 mg Heparin Sodium/Dextrose (Heparin Infusion -) 25,000 units in 500 mls @ 16 mls/ hr IVPB TITR RIANNA; 800 UNITS/HR PRN Reason: Protocol Last Titration: 02/02/17 01:30 Dose: 1,000 units/hr, 20 mls/hr Sodium Chloride (Normal Saline -) 1,000 mls @ 65 mls/hr IV ASDIR [facility] Last Admin: 02/01/17 13:15 Dose: 65 mls/hr Isosorbide Mononitrate (Imdur -) 60 mg PO DAILY [facility] Last Admin: 02/02/17 06:23 Dose: 60 mg Tamsulosin HCl (Flomax -) 0.4 mg PO HS [facility] Last Admin: 02/01/17 21:48 Dose: 0.4 mg - Objective Vital Signs: Vital Signs Temperature 98.2 F 02/02/17 05:47 Pulse Rate 94 H 02/02/17 05:47 Respiratory Rate 20 02/02/17 05:47 Blood Pressure 146/70 02/02/17 05:47 O2 Sat by Pulse Oximetry (%) 96 02/01/17 21:00 Labs: CBC, BMP 02/01/17 18:00 02/01/17 05:05 INR, PTT INR 1.22 (0.82-1.09) H 01/31/17 05:28 Problem List - Problems (1) Chest pain Assessment/Plan: HR improved (off beta l[place]; restart at low dose). BUN/Cr improving with fluids (lower volume overnight); f/u BUN/Cr. Pt for coronary angiogram today at [facility]. Maintain electrolytes (keep K 4-4.5, Mg 2-2.3, PO4 2.5-3.5). Code(s): R07.9 - CHEST PAIN, UNSPECIFIED Qualifiers: Chest pain type: unspecified Qualified Code(s): R07.9 - Chest pain, unspecified (2) Hypertension Assessment/Plan: Conitnue hydralazine, Imdur, amlodipine. Restart beta blockers (low dose). Problematic starting ACEI or ARB due to renal dysfunction. Code(s): I10 - ESSENTIAL (PRIMARY) HYPERTENSION Qualifiers: Hypertension type: essential hypertension Qualified Code(s): I10 - Essential (primary) hypertension (3) Renal dysfunction Code(s): N28.9 - DISORDER OF KIDNEY AND URETER, UNSPECIFIED (4) Bradycardia Code(s): R00.1 - BRADYCARDIA, UNSPECIFIED (5) Diastolic CHF Code(s): I50.30 - UNSPECIFIED DIASTOLIC (CONGESTIVE) HEART FAILURE (6) Pulmonary hypertension, moderate to severe Code(s): I27.20 - PULMONARY HYPERTENSION, UNSPECIFIED (7) Ventral hernia Code(s): K43.9 - VENTRAL HERNIA WITHOUT OBSTRUCTION OR GANGRENE (8) Anxiety Code(s): F41.9 - ANXIETY DISORDER, UNSPECIFIED
--- NOTE | 2017-02-02 07:41 | DS ---
Physical Exam: SUBJECTIVE: Patient seen and examined. Did well overnight. No complaints of chest pain or SOB. Diarrhea improved OBJECTIVE: Vital Signs Period Temp Pulse Resp BP Sys/Clifton Pulse Ox Last 24 Hr 97.2 F-98.8 F 75-94 18-20 128-146/52-70 96-98 PHYSICAL EXAM GEN: AAOx3, NAD, Lying comfortably, pacers on back HEENT: PERRLA, EOMi CV: S1, S2, RRR LUNG: CTABL ABD: Soft, NT, ND, normoactive BS MSK: No edema, no erythema NEURO: CN 2-12 intact, no MSK or sensation deficits LABS Laboratory Last Values WBC 6.0 K/mm3 (4.0-10.0) 02/01/17 18:00 RBC 3.38 M/mm3 (4.00-5.60) L 02/01/17 18:00 Hgb 10.6 GM/dL (11.7-16.9) L D 02/01/17 18:00 Hct 31.4 % (35.4-49) L D 02/01/17 18:00 MCV 92.9 fl (80-96) 02/01/17 18:00 MCH 31.5 pg (25.7-33.7) 02/01/17 18:00 MCHC 33.8 g/dl (32.0-35.9) 02/01/17 18:00 RDW 18.0 % (11.9-15.9) H 02/01/17 18:00 Plt Count 182 K/MM3 (134-434) 02/01/17 18:00 MPV 9.5 fl (7.5-11.1) 02/01/17 18:00 Neutrophils % 57.9 % (42.8-82.8) 02/01/17 05:05 Lymphocytes % 26.0 % (8-40) 02/01/17 05:05 Monocytes % 13.6 % (3.8-10.2) H 02/01/17 05:05 Eosinophils % 1.8 % (0-4.5) 02/01/17 05:05 Basophils % 0.7 % (0-2.0) 02/01/17 05:05 PT with INR 13.80 SEC (9.98-11.88) H 01/31/17 05:28 INR 1.22 (0.82-1.09) H 01/31/17 05:28 PTT (Actin FS) 57.8 SECONDS (26.9-34.4) H D 02/01/17 14:20 Sodium 138 mmol/L (136-145) 02/01/17 05:05 Potassium 3.6 mmol/L (3.5-5.1) 02/01/17 05:05 Chloride 104 mmol/L (98-107) 02/01/17 05:05 Carbon Dioxide 25 mmol/L (21-32) 02/01/17 05:05 Anion Gap 9 (8-16) 02/01/17 05:05 BUN 48 mg/dL (7-18) H 02/01/17 05:05 Creatinine 1.5 mg/dL (0.7-1.3) H D 02/01/17 05:05 Creat Clearance w eGFR 31.62 (>60) 01/31/17 05:28 Random Glucose 105 mg/dL (74-106) 02/01/17 05:05 Calcium 7.5 mg/dL (8.5-10.1) L 02/01/17 05:05 Phosphorus 3.1 mg/dL (2.5-4.9) 02/01/17 05:05 Magnesium 1.7 mg/dL (1.8-2.4) L D 02/01/17 05:05 Total Bilirubin 0.8 mg/dL (0.2-1.0) 01/31/17 05:28 AST 27 U/L (15-37) 01/31/17 05:28 ALT 40 U/L (12-78) 01/31/17 05:28 Alkaline Phosphatase 56 U/L (45-117) 01/31/17 05:28 Creatine Kinase 165 IU/L (39-308) 01/30/17 10:20 Creatine Kinase Index 1.0 % (0.0-5.0) 01/30/17 10:20 CK-MB (CK-2) 1.762 ng/mL (0.5-3.6) 01/30/17 10:20 Troponin I 0.05 ng/ml (0.00-0.05) 01/30/17 21:45 B-Natriuretic Peptide 29981.18 pg/ml (5-450) H 01/30/17 10:20 Total Protein 6.0 g/dl (6.4-8.2) L 01/31/17 05:28 Albumin 3.2 g/dl (3.4-5.0) L 01/31/17 05:28 TSH 3.43 uIU/ml (0.358-3.74) D 01/30/17 12:00 Urine Color Yellow 01/31/17 17:00 Urine Appearance Clear 01/31/17 17:00 Urine pH 5.0 (5.0-8.0) D 01/31/17 17:00 Ur Specific Alpha 1.011 (1.001-1.035) 01/31/17 17:00 Urine Protein Negative (NEGATIVE) 01/31/17 17:00 Urine Glucose (UA) Negative (NEGATIVE) 01/31/17 17:00 Urine Ketones Negative (NEGATIVE) 01/31/17 17:00 Urine Blood Negative (NEGATIVE) 01/31/17 17:00 Urine Nitrite Negative (NEGATIVE) 01/31/17 17:00 Urine Bilirubin Negative (NEGATIVE) 01/31/17 17:00 Urine Urobilinogen Negative mg/dL (0.2-1.0) 01/31/17 17:00 Ur Leukocyte Esterase Negative (NEGATIVE) 01/31/17 17:00 U Random Total Protein 15 mg/dl (5-11.9) H 01/31/17 16:50 Ur Random Urea Nitrogn 697 mg/dL 01/31/17 16:50 Urine Creatinine 118.0 mg/dL (20-370) 01/31/17 17:00 HOSPITAL COURSE: Date of Admission:01/31/17 Date of Discharge: 02/02/17 Briefly, Mr Pham is an 89 year-old male with a PMH significant for HTN, HLD , CAD s/p stents x 3, diastolic CHF. He presented with chest pressure that radiated to the mid-scapular area. The pain had atypical features: it was pleuritic and was associated with some anxiety. The pain lasted most of the day , but the patient was able to sleep. Upon awakening the next morning, he felt the pain again. He denied shortness of breath on exertion, diaphoresis, or orthopnea/edema. In the ER he had mild troponin elevation 0.04-0.05 with no new EKG changes. Due to the patient's history, the pain is likely from coronary ischemia. He was also found to have new onset Afib/Aflutter with slow ventricular response with resulting bradycardia to the 30s-40s. Pacers were placed, and the patient's Metoprolol XL 100 was held. He was started on Heparin drip for possible NSTEMI and high CHADsVASc of 5. The patient was also having multiple episodes of diarrhea, and was found to have an Acute Kidney Injury with Cr of 2.0. Cardiology Dr Moyer had seen the patient, and was planning for Cardiac cath , but wanted the patient's kidney function to be optimized prior. His BERT was found to be pre-renal secondary to GI loss, since it improved back to baseline ( 1.5) with low rate fluids and FeUrea was 20.4%. Nephrology Dr Soni saw the patient, and also started Mucomyst prior to the cath. With regards to his diarrhea, C.diff Ag was positive, toxin negative. A non-toxigenic strain was not suspected because his diarrhea self-resolved with only a few doses of Flagyl , thus antibiotics were discontinued. All medications were continued except Metoprolol, which may be restarted by [facility]. The patient did not have chest pain during his stay, and he is aware that he will be transferred to [facility] today for Cardiac Cath. was present and also aware. Minutes to complete discharge: 45 Discharge Summary Reason For Visit: CHEST PAIN Current Active Problems Anxiety (Acute) Bradycardia (Acute) Chest pain (Acute) Diastolic CHF (Acute) Pulmonary hypertension, moderate to severe (Acute) Renal dysfunction (Acute) Ventral hernia (Acute) Condition: Stable - Instructions Diet, Activity, Other Instructions: TRANSFER RECOMMENDATIONS: - You are being transferred to [facility] for Cardiac Catheterization procedure. - You presented with chest pain, and it could be from a coronary artery blockage. - In order to do the cardiac cath procedure, we improved your Creatinine ( kidney function) with fluids. - We will also place you on Mucomyst to help protect your kidneys before the cardiac cath - We will continue you on all your current medications in the hospital - You will need to follow outpatient management dictated by [facility] , this could include following a heart healthy diet and exercise regimen. - If you experience severe chest pain and shortness of breath when you are at home, please return to the Emergency Department MEDICATION CHANGES: - We DISCONTINUED your Metoprolol XL 100 daily due to bradycardia, it can be restarted when you are at [facility] Referrals: Clement Moyer MD [Staff Physician] - 2 Weeks Alan Short MD [Staff Physician] - 2 Weeks Disposition: TRANSFER ACUTE CARE/OTHER HOSP - Home Medications Comprehensive Discharge Medication List: Ambulatory Orders Allopurinol [Zyloprim -] 100 mg PO HS 12/21/11 Tamsulosin HCl 0.4 mg PO HS 12/21/11 Amlodipine Besylate [Norvasc -] 10 mg PO DAILY 07/19/15 Aspirin [ASA -] 81 mg PO DAILY 07/19/15 Atorvastatin Ca [Lipitor] 80 mg PO HS 07/19/15 Hydralazine HCl [Apresoline -] 50 mg PO BID 07/19/15 Isosorbide Mononitrate [Imdur -] 60 mg PO DAILY 07/19/15 Lisinopril 5 mg PO DAILY 10/29/15 Clopidogrel Bisulfate [Clopidogrel] 75 mg PO DAILY 01/30/17 Docusate Sodium [Colace -] 200 mg PO DAILY 01/30/17 Furosemide 20 mg PO BID 01/30/17 Triamcinolone 0.1% Cream [Aristocort 0.1% Cream -] 1 applic TP BID 01/30/17 Heparin - 1,000 unit IVPUSH PRN PRN vial 02/02/17 Heparin - 5,000 unit IVPUSH PRN PRN vial 02/02/17 Sodium Chloride [Normal Saline -] 1,000 ml IV ASDIR #1 infus.bag 02/02/17 This patient is new to me today: No Emergency Visit: No Critical Care patient: No - Discharge Referral Referred to [facility] Med P.C.: No
[2017-02-02 08:09] LABS: MCHC 33.5 g/dl (32.0-35.9); MEAN CELL VOLUME 92.6 fl (80-96); PLATELET COUNT 185 K/MM3 (134-434); RDW 17.8 % (11.9-15.9); WHITE BLOOD COUNT 6.5 K/mm3 (4.0-10.0)
[2017-02-02 08:49] LABS: ANION GAP 7 (8-16); CO2 23 mmol/L (21-32); GLUCOSE,RANDOM 114 mg/dL (74-106); MAGNESIUM 1.9 mg/dL (1.8-2.4)
[2017-02-02] MEDS ORDERED: METOPROLOL TARTRATE 25 MG TABLET (FP) PO SCH (10:00)
--- NOTE | 2017-02-02 12:19 | PN ---
Teaching Attending Note Name of Resident: Byron Bourgeois ATTENDING PHYSICIAN STATEMENT I saw and evaluated the patient. I reviewed the resident's note and discussed the case with the resident. I agree with the resident's findings and plan as documented. SUBJECTIVE:pt was transferred for cardiac cath this Am prior to my assessment
[2017-02-03 06:07] LABS: SERUM IRON 59 ug/dL (38-169); TOTAL IRON BINDING CAPACITY 191 ug/dL (250-450); UIBC 132 ug/dL (111-343)
== END 2017-02-02 08:18 | disposition short-term general hospital (02) | DRG 683 ==
LOC: JER 09:40 → JERBED 12:27 → J4W 15:29 → OBSVTOIN 01-31 13:20
PROVIDERS: ADMIT Internal Medicine; ATTEND Internal Medicine
DX: N17.9 Acute kidney failure, unspecified (principal); I13.0 Hypertensive heart and chronic kidney disease with heart failure and stage 1 through stage 4 chronic kidney disease, or unspecified chronic kidney disease; I50.32 Chronic diastolic (congestive) heart failure; I48.92 Unspecified atrial flutter; N18.9 Chronic kidney disease, unspecified; I48.91 Unspecified atrial fibrillation; E83.42 Hypomagnesemia; E86.1 Hypovolemia; I27.20 Pulmonary hypertension, unspecified; T44.7X5A Adverse effect of beta-adrenoreceptor antagonists, initial encounter; R07.9 Chest pain, unspecified; E78.00 Pure hypercholesterolemia, unspecified; Z95.5 Presence of coronary angioplasty implant and graft; I25.10 Atherosclerotic heart disease of native coronary artery without angina pectoris; I36.1 Nonrheumatic tricuspid (valve) insufficiency; I35.0 Nonrheumatic aortic (valve) stenosis; M10.9 Gout, unspecified; R19.7 Diarrhea, unspecified; K43.9 Ventral hernia without obstruction or gangrene; F41.9 Anxiety disorder, unspecified; R00.1 Bradycardia, unspecified; D64.9 Anemia, unspecified
CPT/HCPCS: 36415; 71010-TC; 80048; 80053; 81003; 82550; 82553; 82570; 82728; 83540; 83550; 83735; 83880; 84100; 84156; 84443; 84484; 84540; 85025; 85027; 85610; 85730; 87045; 87046; 87324; 87449; 93005; 93010; 99285-25; G0378; J1644

== ENCOUNTER 2017-03-02 14:30 | Inpatient (IN) | payer OTHER ==
--- NOTE | 2017-03-02 14:40 | PDOC ---
Rapid Medical Evaluation Time Seen by Provider: 03/02/17 14:40 Medical Evaluation: Allergies Allergy/AdvReac Type Severity Reaction Status Date / Time No Known Allergies Allergy Verified 01/30/17 09:44 03/02/17 14:40 I have performed a brief in-person evaluation of this patient. The patient presents with a chief complaint of: hx CHF, worsening dyspnea on exertion, 13 lb weight gain in 3 weeks, swelling of legs, sent by cardiology to come in for evaluation, Barbra supposed to see him today hx 2 card stents, hernia repair PMD Deja, Cards: Comfort/Barbra Pertinent physical exam findings: lungs CTAB, well appearing I have ordered the following: labs, CXR, EKG The patient will proceed to the ED for further evaluation. Discharge Disposition - Diagnosis Dyspnea - Referrals Referrals: Alan Short MD [Primary Care Provider] - - Patient Instructions - Post Discharge Activity
[2017-03-02 14:43] VITALS: BMI 27.9
--- NOTE | 2017-03-02 15:40 | EKG ---
Test Reason : Blood Pressure : / mmHG Vent. Rate : 058 BPM Atrial Rate : 250 BPM P-R Int : 000 ms QRS Dur : 098 ms QT Int : 424 ms P-R-T Axes : 000 024 045 degrees QTc Int : 416 ms ATRIAL FIBRILLATION WITH SLOW VENTRICULAR RESPONSE ABNORMAL ECG WHEN COMPARED WITH ECG OF 31-JAN-2017 09:58, ATRIAL FIBRILLATION HAS REPLACED ATRIAL FLUTTER Confirmed by NORBERTO ESPINAL MD ([id number]) on 03/02/2017 3:40:04 PM Referred By: Confirmed By:NORBERTO ESPINAL MD
--- NOTE | 2017-03-02 15:43 | CON.CARD ---
Consult Consult Specialty:: Cardiology - History of Present Illness Chief Complaint: sob leg swelling History of Present Illness: he patient is an 89 year old male with past medical history of Gout, enlarged prostate, hypertension, and hyperlipidemia, who presents to the emergency department with complaints of SOB. hx CHF, worsening dyspnea on exertion, 13 lb weight gain in 3 weeks, swelling of legs. PMH Condition Date Treating Physician Comments ?esptic shock/dehydration, with transient multiorgan failure, hypotension, bradycardia leading to intubation, atropine, and pressors (see page 1 of note) anxiety/depression ASHD: negative stress MIBI 12/18/10 chronic bilateral leg swelling diastolic CHF hypercholesterolemia large ventral hernia mild anemia pre-syncope (dizzy; held onto wall; denies LOC) truncal obesity ventral hernia PCI [facility]IANA [facility] 02-02-2017 - History Source History Provided By: Patient, Medical Record - Past Medical History Cardio/Vascular: Yes: CHF, HTN, Hyperlipdemia Rheumatology: Yes: Gout - Alcohol/Substance Use Hx Alcohol Use: No - Smoking History Smoking history: Former smoker Have you smoked in the past 12 months: No Aproximately how many cigarettes per day: 0 If you are a former smoker, when did you quit?: 50 YRS <Rodney Belle - Last Filed: 03/02/17 16:01> Home Medications <Rodney Belle - Last Filed: 03/02/17 16:01> <Clement Moyer - Last Filed: 03/03/17 12:05> - Allergies Allergies/Adverse Reactions: Allergies Allergy/AdvReac Type Severity Reaction Status Date / Time No Known Allergies Allergy Verified 03/02/17 14:43 - Home Medications Home Medications: Ambulatory Orders Allopurinol [Zyloprim -] 100 mg PO DAILY 03/02/17 Amlodipine Besylate [Norvasc -] 10 mg PO DAILY 03/02/17 Aspirin 81 mg PO DAILY 03/02/17 Atorvastatin Ca [Lipitor] 80 mg PO HS 03/02/17 Clopidogrel Bisulfate [Plavix] 75 mg PO DAILY 03/02/17 Docusate Sodium [Colace] 100 mg PO BID 03/02/17 Furosemide [Lasix] 20 mg PO BID 03/02/17 Hydralazine HCl 50 mg PO DAILY 03/02/17 Isosorbide Mononitrate [Imdur -] 60 mg PO DAILY 03/02/17 Lisinopril [Zestril] 2.5 mg PO DAILY 03/02/17 Metoprolol Succinate 25 mg PO DAILY 03/02/17 Omeprazole 20 mg PO DAILY 03/02/17 Tamsulosin HCl [Flomax] 0.4 mg PO DAILY 03/02/17 Triamcinolone 0.1% Cream [Aristocort] 0 gm TP DAILY 03/02/17 Review of Systems - Review of Systems Constitutional: reports: No Symptoms Eyes: reports: No Symptoms HENT: reports: No Symptoms Neck: reports: No Symptoms Cardiovascular: reports: Edema, Shortness of Breath Gastrointestinal: reports: No Symptoms Genitourinary: reports: No Symptoms Breasts: reports: No Symptoms Reported Musculoskeletal: reports: No Symptoms Integumentary: reports: No Symptoms Neurological: reports: No Symptoms Endocrine: reports: No Symptoms Hematology/Lymphatic: reports: No Symptoms Psychiatric: reports: No Symptoms <Rodney Belle L - Last Filed: 03/02/17 16:01> Vital Signs: Vital Signs Temperature 98.8 F 03/02/17 14:39 Pulse Rate 67 03/02/17 14:39 Respiratory Rate 20 03/02/17 14:39 Blood Pressure 121/68 03/02/17 14:39 O2 Sat by Pulse Oximetry (%) 95 03/02/17 14:39 Constitutional: Yes: Well Nourished, No Distress, Calm Eyes: Yes: WNL, Conjunctiva Clear, EOM Intact HENT: Yes: WNL, Atraumatic, Normocephalic Neck: Yes: WNL, Supple, Trachea Midline Respiratory: Yes: WNL, Regular, CTA Bilaterally Gastrointestinal: Yes: WNL, Normal Bowel Sounds Renal/: Yes: WNL Cardiovascular: Yes: WNL, Regular Rate and Rhythm Musculoskeletal: Yes: WNL Extremities: Yes: WNL Edema: LLE: 2+, RLE: 2+ Integumentary: Yes: WNL Neurological: Yes: WNL, Alert, Oriented ...Motor Strength: WNL Psychiatric: Yes: WNL, Alert, Oriented <Rodney Belle - Last Filed: 03/02/17 16:01> Vital Signs: Vital Signs Temperature 98.3 F 03/03/17 08:15 Pulse Rate 68 03/03/17 08:15 Respiratory Rate 20 03/03/17 08:15 Blood Pressure 126/60 03/03/17 08:15 O2 Sat by Pulse Oximetry (%) 98 03/03/17 08:15 - Other Data Labs, Other Data: CBC, BMP 03/03/17 06:32 03/03/17 06:32 INR, PTT INR 1.40 (0.82-1.09) H 03/03/17 06:32 Troponin, BNP 03/02/17 03/02/17 03/03/17 14:00 15:47 00:45 Troponin I 0.03 D 0.03 B-Natriuretic Peptide 7049 H 03/03/17 06:32 Troponin I 0.03 B-Natriuretic Peptide Troponin, BNP 03/02/17 03/02/17 03/03/17 14:00 15:47 00:45 Troponin I 0.03 D 0.03 B-Natriuretic Peptide 7049 H 03/03/17 06:32 Troponin I 0.03 B-Natriuretic Peptide <Clement Moyer - Last Filed: 03/03/17 12:05> Imaging - Results Chest X-ray: Pending EKG: Pending <Rodney Belle - Last Filed: 03/02/17 16:01> Problem List - Problems (1) Dyspnea Code(s): R06.00 - DYSPNEA, UNSPECIFIED (2) Anxiety Code(s): F41.9 - ANXIETY DISORDER, UNSPECIFIED (3) Bradycardia Code(s): R00.1 - BRADYCARDIA, UNSPECIFIED (4) Chest pain Code(s): R07.9 - CHEST PAIN, UNSPECIFIED QualifierTitle: Chest pain type: unspecified Qualified Code(s): R07.9 - Chest pain, unspecified (5) Diastolic CHF Code(s): I50.30 - UNSPECIFIED DIASTOLIC (CONGESTIVE) HEART FAILURE (6) Hypertension Code(s): I10 - ESSENTIAL (PRIMARY) HYPERTENSION QualifierTitle: Hypertension type: essential hypertension Qualified Code( s): I10 - Essential (primary) hypertension (7) Hypomagnesemia Code(s): E83.42 - HYPOMAGNESEMIA (8) Hyponatremia Code(s): E87.1 - HYPO-OSMOLALITY AND HYPONATREMIA (9) Pulmonary hypertension, moderate to severe Code(s): I27.20 - PULMONARY HYPERTENSION, UNSPECIFIED (10) Renal dysfunction Code(s): N28.9 - DISORDER OF KIDNEY AND URETER, UNSPECIFIED (11) Ventral hernia Code(s): K43.9 - VENTRAL HERNIA WITHOUT OBSTRUCTION OR GANGRENE <Rodney Belle - Last Filed: 03/02/17 16:01> Assessment/Plan admitted with worsenning SOB edema weight gain s/p PCI LAD 2016, RCA 06/21/16 CRF elevated creatinine DM2 Pulmonary hypertension moderate TR severe Ongoing medical problems ?septic shock/dehydration, with transient multiorgan failure, hypotension, bradycardia leading to intubation, atropine, and pressors (see page 1 of note) anxiety/depression ASHD: negative stress MIBI 12/18/10 chronic bilateral leg swelling diastolic CHF hypercholesterolemia large ventral hernia mild anemia pre-syncope (dizzy; held onto wall; denies LOC) truncal obesity ventral hernia umbilical hernia repair Plan; labs cxr labs Telemetry cont DAPT <Rodney Belle - Last Filed: 03/02/17 16:01>
--- NOTE | 2017-03-02 15:48 | PDOC ---
History of Present Illness - General Chief Complaint: Shortness of Breath Stated Complaint: Shortness of Breath Time Seen by Provider: 03/02/17 14:40 - History of Present Illness Initial Comments: 03/02/17 16:21 The patient is an 89 year old male with a history of CHF, CAD, HTN, HLD who presents for evaluation of worsening dyspnea on exertion and weight gain. The patient reports a 13 pound weight gain over the past 2 weeks and has noted worsening dyspnea with exertion over the past several days. They contacted the patient's ladle watcher who informed the patient to present to the ED for evaluation and consultation with Dr. Devi. The patient reports some mild chest discomfort and worsening edema as well. He denies fevers, chills, cough, abdominal pain, nausea, vomiting, or changes with urination or bowel movements. Past History - Past Medical History Allergies/Adverse Reactions: Allergies Allergy/AdvReac Type Severity Reaction Status Date / Time No Known Allergies Allergy Verified 03/02/17 14:43 Home Medications: Ambulatory Orders Allopurinol [Zyloprim -] 100 mg PO DAILY 03/02/17 Amlodipine Besylate [Norvasc -] 10 mg PO DAILY 03/02/17 Aspirin 81 mg PO DAILY 03/02/17 Atorvastatin Ca [Lipitor] 80 mg PO HS 03/02/17 Clopidogrel Bisulfate [Plavix] 75 mg PO DAILY 03/02/17 Docusate Sodium [Colace] 100 mg PO BID 03/02/17 Furosemide [Lasix] 20 mg PO BID 03/02/17 Hydralazine HCl 50 mg PO DAILY 03/02/17 Isosorbide Mononitrate [Imdur -] 60 mg PO DAILY 03/02/17 Lisinopril [Zestril] 2.5 mg PO DAILY 03/02/17 Metoprolol Succinate 25 mg PO DAILY 03/02/17 Omeprazole 20 mg PO DAILY 03/02/17 Tamsulosin HCl [Flomax] 0.4 mg PO DAILY 03/02/17 Triamcinolone 0.1% Cream [Aristocort] 0 gm TP DAILY 03/02/17 Cardiac Disorders: Yes COPD: No HTN: Yes Hypercholesterolemia: Yes - Surgical History Abdominal Surgery: Yes (umbilical hernia) Cardiac Surgery: Yes (stent X 2) - Suicide/Smoking/Psychosocial Hx Smoking Status: No Smoking History: Former smoker Have you smoked in the past 12 months: No Number of Cigarettes Smoked Daily: 0 If you are a former smoker, when did you quit?: 50 YRS Information on smoking cessation initiated: No Hx Alcohol Use: No Drug/Substance Use Hx: No Substance Use Type: None Hx Substance Use Treatment: No Review of Systems - Review of Systems Comments:: 03/02/17 16:28 Constitutional: Weight gain. No fevers, chills, fatigue, malaise HEENT: No Rhinorrhea, nasal congestion, visual changes Cardiovascular: Chest discomfort. No syncope, palpitations, lightheadedness Respiratory: SOB. No Cough, Hemoptysis, Gastrointestinal: No Abdominal pain, Nausea, Vomiting, Constipation, Diarrhea, Melena Genitourinary: No Dysuria, Frequency, Urgency, Hesitancy, Hematuria, Flank pain Musculoskeletal: No Myalgia, arthralgia Skin: No rashes, bruising, pallor Neurologic: No Headache, Dizziness, Numbness, Weakness, or Tingling Psychiatric: No Hallucinations. No SI or HI *Physical Exam - Vital Signs Last Vital Signs Temp Pulse Resp BP Pulse Ox 98.8 F 67 20 121/68 95 03/02/17 14:39 03/02/17 14:39 03/02/17 14:39 03/02/17 14:39 03/02/17 14:39 - Physical Exam Comments: 03/02/17 16:29 General Appearance: Nourished. No Apparent Distress HEENT: EOMI, PAUL. No Pharyngeal Erythema, Tonsillar Exudate, Tonsillar Erythema Neck: No Cervical Lymphadenopathy Respiratory/Chest: Lungs Clear, Normal Breath Sounds. No Crackles, Rales, Rhonchi, Wheezing Cardiovascular: Regular Rhythm, Regular Rate. No Murmur, Gallops, Rubs Gastrointestinal/Abdominal: Normal Bowel Sounds, Soft. No Guarding, Rebound, Tenderness Musculoskeletal: No CVA Tenderness Extremity: Normal Capillary Refill Integumentary: Normal Color, Dry, Warm Neurologic: Fully Oriented, Alert, Normal Mood/Affect, Normal Response, ED Treatment Course - LABORATORY CBC & Chemistry Diagram: 03/02/17 14:00 03/02/17 15:47 Medical Decision Making - Medical Decision Making 03/02/17 16:30 The patient is an 89 year old male with a history of CHF, CAD, HTN, HLD who presents for evaluation of worsening dyspnea on exertion and weight gain. Differential includes but is not limited to: CHF exacerbation, pneumonia, acs, infectious, metabolic derangement. Given the patient's worsening dyspnea with associated weight gain, it is likely the patient is fluid overloaded and experiencing a chf exacerbation. We will send a cbc, cmp, troponin, mg, bnp, chest plain film and ekg to evaluate further. We will continue to monitor and reassess. 03/02/17 18:29 cbc is unremarkable. CMP demonstrates a creatine elevation of 2.1. bnp elevated to 7000s. The patient's labs demonstrate an amado in addition to findings consistent with an acute chf exacerbation. We believe that the patient requires admission for further management of his symptoms at this time. 03/02/17 18:43 We discussed the case with the hospitalist team who accepted the patient for admission. *DC/Admit/Observation/Transfer Diagnosis at time of Disposition: Dyspnea Qualifiers: Dyspnea type: unspecified Qualified Code(s): R06.00 - Dyspnea, unspecified Diastolic CHF Qualifiers: Congestive heart failure chronicity: acute on chronic Qualified Code(s): I50.33 - Acute on chronic diastolic (congestive) heart failure - Discharge Dispostion Condition at time of disposition: Guarded Admit: Yes - Referrals Referrals: Alan Short MD [Primary Care Provider] - - Patient Instructions - Post Discharge Activity
[2017-03-02 16:12] LABS: BASO % 0.9 % (0-2.0); EOS % 0.4 % (0-4.5); HEMATOCRIT 24.8 % (35.4-49); HEMOGLOBIN 8.2 GM/dL (11.7-16.9); LYMPH % 14.6 % (8-40); MCH 31.3 pg (25.7-33.7); MEAN PLT VOLUME 9.9 fl (7.5-11.1); MONO % 11.9 % (3.8-10.2); NEUT % 72.2 % (42.8-82.8); PLATELET COUNT 215 K/MM3 (134-434); RBC 2.61 M/mm3 (4.00-5.60); WHITE BLOOD COUNT 6.3 K/mm3 (4.0-10.0)
[2017-03-02 16:41] LABS: ANION GAP 9 (8-16); BILIRUBIN,TOTAL 0.6 mg/dL (0.2-1.0); BLOOD UREA NITROGEN 56 mg/dL (7-18); CALCIUM 7.9 mg/dL (8.5-10.1); CHLORIDE 99 mmol/L (98-107); CO2 24 mmol/L (21-32); CREATININE 2.1 mg/dL (0.7-1.3); GLUCOSE,RANDOM 142 mg/dL (74-106); SGPT/ALT 83 U/L (12-78); SODIUM 132 mmol/L (136-145)
[2017-03-02 16:43] LABS: INR 1.35 (0.82-1.09); PROTHROMBIN TIME (PATIENT) 15.3 SEC (9.98-11.88)
[2017-03-02 16:44] LABS: ALK PHOS 94 U/L (45-117)
[2017-03-02 17:03] LABS: POTASSIUM 4.5 mmol/L (3.5-5.1); SGOT/AST 48 U/L (15-37)
[2017-03-02 17:44] LABS: MAGNESIUM 1.1 mg/dL (1.8-2.4)
--- NOTE | 2017-03-02 17:54 | PDOC ---
Attending Attestation - Resident Resident Name: Chris Lopez - ED Attending Attestation I have performed the following: I have examined & evaluated the patient, The case was reviewed & discussed with the resident, I agree w/resident's findings & plan, Exceptions are as noted - HPI HPI: 03/02/17 17:52 "The patient is a 89 year old male, with a significant past medical history of hypertension, hyperlipidemia, tricuspid regurgitation, moderate aortic stenosis , and CHF, who presents to the emergency department sent by his Finished Cloth Checker Dr. Herzog for evaluation of worsening shortness of breath and dyspnea on exertion. Patient reports associated 13 lb weight gain over the past 3 weeks and swelling of the legs, but denies any chest pain, diaphoresis, or palpitations. He denies any recent fever, chills, headache, or dizziness. He denies abdominal pain, nausea, vomiting, diarrhea, constipation, or changes in urination. States that he is on lasix 20mg daily and has been compliant. However , he does note decreased UOP over the past few days. Allergies: NKDA Past Surgical History: Umbilical hernia repair Social History: Non smoker. No ETOH or recreational drug use. PCP: Dr. Short Finished Cloth Checker: Dr. Herzog " - Physicial Exam PE: 03/02/17 17:53 "GENERAL: Awake, alert, and fully oriented, in no acute distress HEAD: No signs of trauma EYES: PERRLA, EOMI, sclera anicteric, conjunctiva clear ENT: Auricles normal inspection, hearing grossly normal, nares patent, oropharynx clear without exudates. Moist mucosa NECK: Nontender, no stepoffs, Normal ROM, supple, no lymphadenopathy, JVD, or masses LUNGS: Breath sounds equal, clear to auscultation bilaterally. No wheezes, and no crackles HEART: Regular rate and rhythm, normal S1 and S2, no murmurs, rubs or gallops ABDOMEN: Soft, nontender, normoactive bowel sounds. No guarding, no rebound. No masses EXTREMITIES: +2 PE BLE NEUROLOGICAL: Cranial nerves II through XII intact. 5/5 strength and sensation in all extremities, Normal speech, normal gait SKIN: Warm, Dry, normal turgor, no rashes or lesions noted. " - Medical Decision Making 03/02/17 17:53 89 M with SOB, THOMAS, and lower extremity edema. Likely worsening volume overload given h/o CHF. Pt has noted decreased UOP despite usual dose of lasix. - Labs, trop, BNP - EKG - CXR - Cardiology consult - Admit
--- NOTE | 2017-03-02 19:09 | PN ---
Teaching Attending Note Name of Resident: Omar Tena ATTENDING PHYSICIAN STATEMENT I saw and evaluated the patient. I reviewed the resident's note and discussed the case with the resident. I agree with the resident's findings and plan as documented. SUBJECTIVE: 89 yo M with pmhx of HTN, CKD, BPH, hyponatremia, HLD, and TR who presents shortness of breath and weight gain. States over the course of two weeks he has gained 13 lbs. He also notes some chest discomfort, radiating to his scapula, which his anginal equivlant. No chest pain or pressure currently. His shortness of breath has resolved. OBJECTIVE: Physical: VS: Vital Signs Period Temp Pulse Resp BP Sys/Clifton Pulse Ox Last 24 Hr 98.8 F 67 20 121/68 95 GEN: NAD, Resting in bed, able to speak full sentences HEENT: NCAT, PERRL, Throat without erythema or exudates CARD: IRR S1, S2 RESP: Decreased BS at bases ABD: BSx4, NTD to palpation EXT: +2 pitting edema CBCD WBC 6.3 K/mm3 (4.0-10.0) 03/02/17 14:00 RBC 2.61 M/mm3 (4.00-5.60) L 03/02/17 14:00 Hgb 8.2 GM/dL (11.7-16.9) L D 03/02/17 14:00 Hct 24.8 % (35.4-49) L 03/02/17 14:00 MCV 95.0 fl (80-96) 03/02/17 14:00 MCHC 33.0 g/dl (32.0-35.9) 03/02/17 14:00 RDW 17.0 % (11.9-15.9) H 03/02/17 14:00 Plt Count 215 K/MM3 (134-434) 03/02/17 14:00 MPV 9.9 fl (7.5-11.1) 03/02/17 14:00 CMP Sodium 132 mmol/L (136-145) L 03/02/17 15:47 Potassium 4.5 mmol/L (3.5-5.1) 03/02/17 15:47 Chloride 99 mmol/L (98-107) 03/02/17 15:47 Carbon Dioxide 24 mmol/L (21-32) 03/02/17 15:47 Anion Gap 9 (8-16) 03/02/17 15:47 BUN 56 mg/dL (7-18) H D 03/02/17 15:47 Creatinine 2.1 mg/dL (0.7-1.3) H D 03/02/17 15:47 Creat Clearance w eGFR 29.89 (>60) 03/02/17 15:47 Random Glucose 142 mg/dL (74-106) H D 03/02/17 15:47 Calcium 7.9 mg/dL (8.5-10.1) L 03/02/17 15:47 Total Bilirubin 0.6 mg/dL (0.2-1.0) D 03/02/17 15:47 AST 48 U/L (15-37) H D 03/02/17 15:47 ALT 83 U/L (12-78) H D 03/02/17 15:47 Alkaline Phosphatase 94 U/L (45-117) D 03/02/17 15:47 Total Protein 6.0 g/dl (6.4-8.2) L 03/02/17 15:47 Albumin 3.0 g/dl (3.4-5.0) L 03/02/17 15:47 CARDIAC ENZYMES Creatine Kinase 152 IU/L (39-308) 03/02/17 15:47 Troponin I 0.03 ng/ml (0.00-0.05) D 03/02/17 15:47 Home Medications Medication Instructions Recorded Allopurinol [Zyloprim -] 100 mg PO DAILY 03/02/17 Amlodipine Besylate [Norvasc -] 10 mg PO DAILY 03/02/17 Aspirin 81 mg PO DAILY 03/02/17 Atorvastatin Ca [Lipitor] 80 mg PO HS 03/02/17 Clopidogrel Bisulfate [Plavix] 75 mg PO DAILY 03/02/17 Docusate Sodium [Colace] 100 mg PO BID 03/02/17 Furosemide [Lasix] 20 mg PO BID 03/02/17 Hydralazine HCl 50 mg PO DAILY 03/02/17 Isosorbide Mononitrate [Imdur -] 60 mg PO DAILY 03/02/17 Lisinopril [Zestril] 2.5 mg PO DAILY 03/02/17 Metoprolol Succinate 25 mg PO DAILY 03/02/17 Omeprazole 20 mg PO DAILY 03/02/17 Tamsulosin HCl [Flomax] 0.4 mg PO DAILY 03/02/17 Triamcinolone 0.1% Cream 0 gm TP DAILY 03/02/17 [Aristocort] CXR- Congestion, small. r plueral effusion vs. consolidation of r. lung base. EKG: A-Fib 58 W rvr 11/06 ECHO- EF 75, MOderate ASSESSMENT AND PLAN: 89 yo M with pmhx of HTN, CKD, BPH, CAD, hyponatremia, HLD, and TR who presents shortness of breath and weight gain, being admitted for acute chf exacerbation 1.) Acute Exacerbation of Diastolic HF - Lasix 40 - Daily Weights - Strict I/O - Fluid/Na restrict - Echo - Trend Trop/EKG - C/W Imdur and Hydralazine 2.) BERT on CKD - Hold Pastor - U. Lytes - Monitor CR - If no improvement yan us 3.) CAD - C/W home meds 4.) Normocytic Anemia - Fe Studies - B12/Folate - Stool Occult 5.) AFIB W RVR - [id number] - Heparin gtt.- IF Stool OCCULT negative and Repeat CBC Stable - Repeat EKG and Trop 6.) Transaminitis - ABD Us - Hepatitis panel - Trend/ hold statin Place in Med-Tele
--- NOTE | 2017-03-02 20:03 | HP ---
CHIEF COMPLAINT: THOMAS, weight gain PCP: Dr. Short HISTORY OF PRESENT ILLNESS: 89 year old male with a pmh of CHF, CAD, HTN, HLD, gout, BPH, who presents to ED in setting of 3 weeks weight gain and worsening SOB, THOMAS after receiving cardiac stent at [facility]. Pt states he has been gained 13 lbs over the last 3 weeks, with notable BL LE edema and worsening THOMAS. Pt states his THOMAS has worsened significantly since Tuesday, two days prior to admission, and he is unable to walk one block without becoming SOB. He states that his legs feel "rubbery" when he walks. In addition, he endorses baseline 2 pillow orthopnea and has recently been complaining of PND, waking up w/ SOB and minimally productive cough. In addition, he has been complaining of mild chest discomfort over the last few days. Pt has never been hospitalized for a CHF exacerbation before, per pt and family. Pt denies fever/chills, lightheadness/GODWIN, palpitations, N/V, abdominal pain, dysuria, rashes or neuro symptoms. Pt endorses mild hesitancy with urination and chronic constipation, as well. Pt follows with Dr. Belle as an outpt. He has a significant hx of CAD and has undergone multiple cardiac stents in past, most recently [address] [facility]. Most recent ECHO was multiple months ago per family. ER course was notable for: (1)BNP 7049 (2)Na 132 (3) Recent Travel: None PAST MEDICAL HISTORY: COPD HTN HLD CAD - Stress test in 06/07, prior cardiac stents x2, most recently 3 weeks ago at [facility] Diastolic CHF Anxiety/Depression BPH PAST SURGICAL HISTORY: Umbilical hernia repair Cardiac stents x2 Social History: Smoking: Former smoker, quit 50 years ago Alcohol: denies Drugs: denies Family History: Noncontributory Allergies No Known Allergies Allergy (Verified 03/02/17 14:43) HOME MEDICATIONS: Home Medications Medication Instructions Recorded Allopurinol [Zyloprim -] 100 mg PO DAILY 03/02/17 Amlodipine Besylate [Norvasc -] 10 mg PO DAILY 03/02/17 Aspirin 81 mg PO DAILY 03/02/17 Atorvastatin Ca [Lipitor] 80 mg PO HS 03/02/17 Clopidogrel Bisulfate [Plavix] 75 mg PO DAILY 03/02/17 Docusate Sodium [Colace] 100 mg PO BID 03/02/17 Furosemide [Lasix] 20 mg PO BID 03/02/17 Hydralazine HCl 50 mg PO DAILY 03/02/17 Isosorbide Mononitrate [Imdur -] 60 mg PO DAILY 03/02/17 Lisinopril [Zestril] 2.5 mg PO DAILY 03/02/17 Metoprolol Succinate 25 mg PO DAILY 03/02/17 Omeprazole 20 mg PO DAILY 03/02/17 Tamsulosin HCl [Flomax] 0.4 mg PO DAILY 03/02/17 Triamcinolone 0.1% Cream 0 gm TP DAILY 03/02/17 [Aristocort] REVIEW OF SYSTEMS CONSTITUTIONAL: +Weight gain Absent: fever, chills, diaphoresis, generalized weakness, malaise, loss of appetite, weight change HEENT: Absent: rhinorrhea, nasal congestion, throat pain, throat swelling, difficulty swallowing, mouth swelling, ear pain, eye pain, visual changes CARDIOVASCULAR: +THOMAS, chest discomfort Absent: chest pain, syncope, palpitations, irregular heart rate, lightheadedness , peripheral edema RESPIRATORY: Absent: cough, shortness of breath, dyspnea with exertion, orthopnea, wheezing, stridor, hemoptysis GASTROINTESTINAL: Absent: abdominal pain, abdominal distension, nausea, vomiting, diarrhea, constipation, melena, hematochezia GENITOURINARY: Absent: dysuria, frequency, urgency, hesitancy, hematuria, flank pain, genital pain MUSCULOSKELETAL: Absent: myalgia, arthralgia, joint swelling, back pain, neck pain SKIN: Absent: rash, itching, pallor HEMATOLOGIC/IMMUNOLOGIC: Absent: easy bleeding, easy bruising, lymphadenopathy, frequent infections ENDOCRINE: Absent: unexplained weight gain, unexplained weight loss, heat intolerance, cold intolerance NEUROLOGIC: Absent: headache, focal weakness or paresthesias, dizziness, unsteady gait, seizure, mental status changes, bladder or bowel incontinence PSYCHIATRIC: Absent: anxiety, depression, suicidal or homicidal ideation, hallucinations. PHYSICAL EXAMINATION Vital Signs - 24 hr 03/02/17 14:39 Temperature 98.8 F Pulse Rate 67 Respiratory 20 Rate Blood Pressure 121/68 O2 Sat by Pulse 95 Oximetry (%) GENERAL: Awake, alert, and fully oriented, in no acute distress. HEAD: Normal with no signs of trauma. EYES: Pupils equal, round and reactive to light, extraocular movements intact, sclera anicteric, conjunctiva clear. No lid lag. EARS, NOSE, THROAT: Ears normal, nares patent, oropharynx clear without exudates. Moist mucous membranes. NECK: JVD+ 2cm below mandible, Normal range of motion, supple without lymphadenopathy, JVD, or masses. LUNGS: BL rhonchi, crackles at bases R>L. No wheezes. No accessory muscle use. HEART: IRR IRR, normal S1 and S2, S3 noted. 2/6 systolic blowing murmur heard at LLSB. ABDOMEN: + HJ reflux. Distended, NT, soft. normoactive bowel sounds, no guarding , no rebound, no masses. No hepatomegaly or splenomegaly. Diffuse inflamed petechial noted on abdomen, crossing midline. Ventral hernia noted. MUSCULOSKELETAL: Normal range of motion at all joints. No bony deformities or tenderness. No CVA tenderness. UPPER EXTREMITIES: 2+ pulses, warm, well-perfused. No cyanosis. No clubbing. No peripheral edema. LOWER EXTREMITIES: 2+ pitting edema to knees. 2+ DP, PT pulses, difficult to appreciate given edema. BL legs cool to touch. No calf tenderness. NEUROLOGICAL: Cranial nerves II-XII intact. Normal speech. Gait not evaluated. PSYCHIATRIC: Cooperative. Good eye contact. Appropriate mood and affect. SKIN: Warm, dry, normal turgor, no rashes or lesions noted, normal capillary refill. Laboratory Results - last 24 hr CBC, BMP 03/02/17 14:00 03/02/17 15:47 03/02/17 03/02/17 03/02/17 14:00 14:00 15:47 WBC 6.3 RBC 2.61 L Hgb 8.2 L D Hct 24.8 L MCV 95.0 MCH 31.3 MCHC 33.0 RDW 17.0 H Plt Count 215 MPV 9.9 Neutrophils % 72.2 D Lymphocytes % 14.6 D Monocytes % 11.9 H Eosinophils % 0.4 Basophils % 0.9 PT with INR 15.30 H INR 1.35 H Sodium Potassium Chloride Carbon Dioxide Anion Gap BUN Creatinine Creat Clearance w eGFR Random Glucose Calcium Magnesium 1.1 L D Total Bilirubin AST ALT Alkaline Phosphatase Creatine Kinase Troponin I B-Natriuretic Peptide 7049 H Total Protein Albumin 03/02/17 15:47 WBC RBC Hgb Hct MCV MCH MCHC RDW Plt Count MPV Neutrophils % Lymphocytes % Monocytes % Eosinophils % Basophils % PT with INR INR Sodium 132 L Potassium 4.5 Chloride 99 Carbon Dioxide 24 Anion Gap 9 BUN 56 H D Creatinine 2.1 H D Creat Clearance w eGFR 29.89 Random Glucose 142 H D Calcium 7.9 L Magnesium Total Bilirubin 0.6 D AST 48 H D ALT 83 H D Alkaline Phosphatase 94 D Creatine Kinase 152 Troponin I 0.03 D B-Natriuretic Peptide Total Protein 6.0 L Albumin 3.0 L CXR: (my read) Bilateral vascular congestion. R sided pleural effusion vs consolidation. Cardiomegaly. BL Bronchietasis. Widened mediastinum. Loss of retrocardiac clear space. EKG: Rate 58, NAD, Irregularly irregular, no p-waves noted - possibly afib w/ bradycardia or aflutter w/ variable conduction ECHO 10/2015 - Biatrial dilatation. Moderate MR, severe TR, mild/moderate AR/KY. Calculated EF 75%. Normal LV function. ASSESSMENT/PLAN: 89 year old male with a pmh of CHF, CAD, HTN, HLD, gout, BPH, who presents to ED in setting of 3 weeks weight gain and worsening SOB, THOMAS after receiving cardiac stent at [facility]. #Acute on Chronic CHF exacerbation - BNP 7049; - ECHO - IV lasix 40mg qD - Cardiology consulted - sodium restricted diet - monitor fluid status - Trend trops - C/w imdur, metoprolol home dose - Strict Is and Os - Daily weights #BERT - baseline 1.0; 2.1 on admission; likely pre-renal - Trend Cr - urine lytes - Renal u/s - daily bmps - Renal consulted #CAD - prior cardiac stents x2; stress test in 06/07 positive - c/w home cardiac meds - ASA, plavix - cardiology consulted #Afib/aflutter on EKG - no hx of afib; CHADs-Vasc of 5; Spoke with Dr. Rivera, covering for Dr. Belle. Said that if no bleeding, put on heparin gtt for now and monitor if FOBT negative. Pt with no prior hx of bleeds, recent major surgeries. - Repeat EKG in AM - Cardiology consult - Heparin gtt if FOBT negative #Hyponatremia - 132 on admission; likely secondary to volume overload - Daily BMPs, trend Na #Anemia - 8.2 on admission; 9.7 on 02/02 - FE studies - Vit B12/folate - f/u FOBT #GERD - PPI #BPH - Complaining of intermittent hesitancy - c/w home flomax PPX Hep gtt if FOBT negative PPI FEN PO hydration daily bmps, trend cr/na sodium restricted diet, <2g Plan discussed with attending, Dr. Kemi Tena, PGY1 Visit type - Emergency Visit Emergency Visit: Yes ED Registration Date: 03/02/17 Care time: The patient presented to the Emergency Department on the above date and was hospitalized for further evaluation of their emergent condition. - New Patient This patient is new to me today: Yes Date on this admission: 03/03/17 - Critical Care Critical Care patient: No
[2017-03-02] MEDS ORDERED: ATORVASTATIN CA 80 MG TABLET (FP) PO SCH (22:00)
[2017-03-02] MEDS ORDERED: ATORVASTATIN CA 80 MG TABLET (FP) ONE (22:57)
[2017-03-02] MEDS ORDERED: DOCUSATE SODIUM 100 MG CAPSULE (FP) PO ONE (22:57)
[2017-03-02] MEDS: DOCUSATE SODIUM 100 MG CAPSULE (FP) PO SCH (23:10)
[2017-03-03] MEDS ORDERED: FUROSEMIDE 40 MG/4 ML INJECTABLE VIAL IVPUSH ONE (01:41)
[2017-03-03] MEDS ORDERED: FUROSEMIDE 40 MG/4 ML INJECTABLE VIAL ONE (02:37)
[2017-03-03] MEDS ORDERED: HEPARIN NA (PORCINE) 5,000 UNITS/ML 1ML VIAL SQ SCH (06:00)
[2017-03-03] MEDS ORDERED: HEPARIN NA (PORCINE) 5,000 UNITS/ML 1ML VIAL ONE (06:28)
[2017-03-03 06:54] LABS: BASO % 0.4 % (0-2.0); HEMATOCRIT 24.6 % (35.4-49); LYMPH % 16.7 % (8-40); MCH 30.5 pg (25.7-33.7); MCHC 32.3 g/dl (32.0-35.9); MEAN CELL VOLUME 94.4 fl (80-96); MEAN PLT VOLUME 9.4 fl (7.5-11.1); MONO % 12.5 % (3.8-10.2); NEUT % 69.4 % (42.8-82.8); PLATELET COUNT 207 K/MM3 (134-434); RBC 2.61 M/mm3 (4.00-5.60); RDW 16.6 % (11.9-15.9); WHITE BLOOD COUNT 6.6 K/mm3 (4.0-10.0)
[2017-03-03 07:13] LABS: INR 1.4 (0.82-1.09); PROTHROMBIN TIME (PATIENT) 15.8 SEC (9.98-11.88)
[2017-03-03 07:18] LABS: ALBUMIN 3.1 g/dl (3.4-5.0); ANION GAP 10 (8-16); BLOOD UREA NITROGEN 56 mg/dL (7-18); CALCIUM 7.7 mg/dL (8.5-10.1); CHLORIDE 101 mmol/L (98-107); CO2 24 mmol/L (21-32); CREATININE 1.8 mg/dL (0.7-1.3); GLUCOSE,RANDOM 96 mg/dL (74-106); PHOSPHOROUS 3.4 mg/dL (2.5-4.9); SGOT/AST 37 U/L (15-37); SGPT/ALT 79 U/L (12-78); SODIUM 135 mmol/L (136-145)
[2017-03-03 07:22] LABS: ALK PHOS 87 U/L (45-117); BILIRUBIN,TOTAL 0.9 mg/dL (0.2-1.0)
--- NOTE | 2017-03-03 10:37 | PN ---
Progress Note, Physician Chief Complaint: Pt A&Ox3; not dyspneic; no chest pain or palpitations.Pt says he had not been urinating much for the past 3 days (while on PO furosemide), but had copious urination last night after being given IV furosemide. History of Present Illness: Mr Pham is an 89 year old white man with past medical history of diastolic CHF; CAD-->PCI (DEstent LAD 01/2017), Gout, enlarged prostate, hypertension, and hyperlipidemia, who presents to the emergency department with complaints of SOB. hx CHF, worsening dyspnea on exertion, 13 lb weight gain in 3 weeks, swelling of legs. PMH Condition Date Treating Physician Comments ?esptic shock/dehydration, with transient multiorgan failure, hypotension, bradycardia leading to intubation, atropine, and pressors (see page 1 of note) anxiety/depression ASHD: negative stress MIBI 12/18/10 chronic bilateral leg swelling diastolic CHF hypercholesterolemia large ventral hernia mild anemia pre-syncope (dizzy; held onto wall; denies LOC) truncal obesity ventral hernia PCI [facility] 02-02-2017 - Current Medication List Current Medications: Active Medications Aspirin (Asa -) 81 mg PO DAILY [facility] Clopidogrel Bisulfate (Plavix -) 75 mg PO DAILY [facility] Docusate Sodium (Colace -) 100 mg PO BID [facility] Last Admin: 03/02/17 23:10 Dose: 100 mg Furosemide (Lasix Injection -) 40 mg IVPUSH DAILY [facility] Heparin Sodium (Porcine) (Heparin -) 5,000 unit SQ TID [facility] Last Admin: 03/03/17 06:39 Dose: 5,000 unit Hydralazine HCl (Apresoline -) 50 mg PO DAILY [facility] Isosorbide Mononitrate (Imdur -) 60 mg PO DAILY [facility] Metoprolol Succinate (Toprol Xl -) 25 mg PO DAILY [facility] Pantoprazole Sodium (Protonix -) 20 mg PO DAILY [facility] Tamsulosin HCl (Flomax -) 0.4 mg PO DAILY@0830 [facility] Triamcinolone Acetonide (Aristocort 0.1% Cream -) 1 applic TP DAILY [facility] - Objective Vital Signs: Vital Signs Temperature 98.3 F 03/03/17 08:15 Pulse Rate 68 03/03/17 08:15 Respiratory Rate 20 03/03/17 08:15 Blood Pressure 126/60 03/03/17 08:15 O2 Sat by Pulse Oximetry (%) 98 03/03/17 08:15 Constitutional: Yes: Calm Eyes: Yes: WNL HENT: Yes: WNL Neck: Yes: Other (+JVD) Cardiovascular: Yes: Pulse Irregular, Murmur (3/6 systolic murmur, RSB-->apex), S1 (varies in intensity) Respiratory: Yes: Diminished Gastrointestinal: Yes: Soft, Distention ...Rectal Exam: Yes: Deferred Genitourinary: No: Anuria Musculoskeletal: Yes: Muscle Weakness Extremities: Yes: Cool Edema: Yes Edema: LLE: Trace, RLE: Trace Peripheral Pulses WNL: Yes Integumentary: Yes: WNL Neurological: Yes: WNL Psychiatric: Yes: WNL Labs: CBC, BMP 03/03/17 06:32 03/03/17 06:32 INR, PTT INR 1.40 (0.82-1.09) H 03/03/17 06:32 Abnormal Lab Results 03/02/17 03/02/17 03/02/17 14:00 14:00 15:47 RBC 2.61 L Hgb 8.2 L D Hct 24.8 L RDW 17.0 H Monocytes % 11.9 H PT with INR 15.30 H INR 1.35 H Sodium BUN Creatinine Random Glucose Calcium Magnesium 1.1 L D AST ALT B-Natriuretic Peptide 7049 H Total Protein Albumin 03/02/17 03/03/17 03/03/17 15:47 06:32 06:32 RBC 2.61 L Hgb 8.0 L Hct 24.6 L RDW 16.6 H Monocytes % 12.5 H PT with INR 15.80 H INR 1.40 H Sodium 132 L BUN 56 H D Creatinine 2.1 H D Random Glucose 142 H D Calcium 7.9 L Magnesium AST 48 H D ALT 83 H D B-Natriuretic Peptide Total Protein 6.0 L Albumin 3.0 L 03/03/17 06:32 RBC Hgb Hct RDW Monocytes % PT with INR INR Sodium 135 L BUN 56 H Creatinine 1.8 H Random Glucose Calcium 7.7 L Magnesium 1.0 L AST ALT 79 H B-Natriuretic Peptide Total Protein 6.0 L Albumin 3.1 L - ....Imaging Chest X-ray: Image Reviewed (right>left pleural effusion) EKG: Image Reviewed (AF with slow VR) Problem List - Problems (1) Dyspnea Code(s): R06.00 - DYSPNEA, UNSPECIFIED Qualifiers: Dyspnea type: unspecified Qualified Code(s): R06.00 - Dyspnea, unspecified (2) Anxiety Code(s): F41.9 - ANXIETY DISORDER, UNSPECIFIED (3) Hypertension Code(s): I10 - ESSENTIAL (PRIMARY) HYPERTENSION Qualifiers: Hypertension type: essential hypertension Qualified Code(s): I10 - Essential (primary) hypertension (4) Hypomagnesemia Code(s): E83.42 - HYPOMAGNESEMIA (5) Hyponatremia Assessment/Plan: now 132-->135; f/u with lead generator. On IV furosemide. Code(s): E87.1 - HYPO-OSMOLALITY AND HYPONATREMIA (6) Pulmonary hypertension, moderate to severe Code(s): I27.20 - PULMONARY HYPERTENSION, UNSPECIFIED (7) Renal dysfunction Code(s): N28.9 - DISORDER OF KIDNEY AND URETER, UNSPECIFIED (8) Ventral hernia Code(s): K43.9 - VENTRAL HERNIA WITHOUT OBSTRUCTION OR GANGRENE (9) Acute on chronic diastolic (congestive) heart failure Assessment/Plan: Likely exacerbated by ?new-onset AF. Weight gain of over 10 lbs in the past week. Plan: Continue metoprolol ER, hydralazine + isordil. Pt had been on lisinopril 2.5 mg daily at home; restart when cleared by lead generator. Replete magnesium, and keep 2-2.3. BUN/Cr, electrolytes, daily weight, Is and Os. Start IV heparin for AF. Code(s): I50.33 - ACUTE ON CHRONIC DIASTOLIC (CONGESTIVE) HEART FAILURE (10) Stented coronary artery Assessment/Plan: Recent (01/2017) DEStent of LAD. Continue clopidgrel and ASA. On metoprolol ER. Continue atorvastatin 80 mg daily for aggressive lipid control (f/u mild increase in LFTS: ? secondary to "passive congestion" from CHF). Code(s): Z95.5 - PRESENCE OF CORONARY ANGIOPLASTY IMPLANT AND GRAFT (11) GERD (gastroesophageal reflux disease) Assessment/Plan: Agree with pantoprazole (and would discharge pt with this medication, rather than omeprazole). Code(s): K21.9 - GASTRO-ESOPHAGEAL REFLUX DISEASE WITHOUT ESOPHAGITIS (12) Atrial fibrillation, new onset Assessment/Plan: On metoprolol ER; adjust dose (slow HR). Start IV heparin ECHO: normal LVEF; moderately dilated LA and RA; moderately severe MR and TR; significant pulmonary HTN. Code(s): I48.91 - UNSPECIFIED ATRIAL FIBRILLATION
[2017-03-03] MEDS ORDERED: MAGNESIUM 1GM/D5W - 1 GM/100 ML IVPB IVPB ONE (11:00)
--- NOTE | 2017-03-03 11:09 | CON.NEP ---
Consult Consult Specialty:: Nephrology Referred by:: Dr. Mcmullen Reason for Consultation:: BERT - History of Present Illness Chief Complaint: SOB, LE edema History of Present Illness: This is a 89 year old gentleman with PMhx of CAD s/p recent cardiac stent, CHF, Hyperlipidemia, BPH, Gout who presented with complaints of SOB, worsening LE edema and found to have acute HF and BERT. Pt was seen on his last admission for BERT that resolved with gentle IVF hydration. Pt states that he had a cardiac stent placed about 3 weeks ago w/o complication. Pt reports having his labs checked post procedure and his renal function was stable. Pt was on ACEi at home. Pt was on Lasix 20mg PO BID. Denies any NSAID use. Denies any dietary indiscretion. No fever, chills, N/V/D. No Abd pain. No urinary retention. No hematuria. - History Source History Provided By: Patient Limitations to Obtaining History: No Limitations - Past Medical History Cardio/Vascular: Yes: CHF, HTN, Hyperlipdemia Rheumatology: Yes: Gout - Alcohol/Substance Use Hx Alcohol Use: No - Smoking History Smoking history: Former smoker Have you smoked in the past 12 months: No Aproximately how many cigarettes per day: 0 If you are a former smoker, when did you quit?: 50 YRS Home Medications - Allergies Allergies/Adverse Reactions: Allergies Allergy/AdvReac Type Severity Reaction Status Date / Time No Known Allergies Allergy Verified 03/02/17 14:43 - Home Medications Home Medications: Ambulatory Orders Allopurinol [Zyloprim -] 100 mg PO DAILY 03/02/17 Amlodipine Besylate [Norvasc -] 10 mg PO DAILY 03/02/17 Aspirin 81 mg PO DAILY 03/02/17 Atorvastatin Ca [Lipitor] 80 mg PO HS 03/02/17 Clopidogrel Bisulfate [Plavix] 75 mg PO DAILY 03/02/17 Docusate Sodium [Colace] 100 mg PO BID 03/02/17 Furosemide [Lasix] 20 mg PO BID 03/02/17 Hydralazine HCl 50 mg PO DAILY 03/02/17 Isosorbide Mononitrate [Imdur -] 60 mg PO DAILY 03/02/17 Lisinopril [Zestril] 2.5 mg PO DAILY 03/02/17 Metoprolol Succinate 25 mg PO DAILY 03/02/17 Omeprazole 20 mg PO DAILY 03/02/17 Tamsulosin HCl [Flomax] 0.4 mg PO DAILY 03/02/17 Triamcinolone 0.1% Cream [Aristocort] 0 gm TP DAILY 03/02/17 Family Disease History - Family Disease History Family History: Unremarkable Review of Systems - Review of Systems Constitutional: reports: No Symptoms Eyes: reports: No Symptoms HENT: reports: No Symptoms Neck: reports: No Symptoms Cardiovascular: reports: Edema, Shortness of Breath Respiratory: reports: Cough, Orthopnea, SOB, SOB on Exertion Gastrointestinal: denies: Abdominal Pain, Nausea, Vomiting Genitourinary: denies: Burning, Discharge, Dysuria, Flank Pain Musculoskeletal: denies: Back Pain Neurological: reports: No Symptoms Endocrine: reports: No Symptoms Nephrology Consult - Height Height: 5 ft 4 in - Weight Weight: 73.936 kg - BMI Body Mass Index (BMI): 27.9 - Lab Results CBC,BMP: CBC, BMP 03/03/17 06:32 03/03/17 06:32 Anion Gap: Anion Gap Anion Gap 10 (8-16) 03/03/17 06:32 - Physical Examination Vital Signs: Vital Signs Temperature 98.3 F 03/03/17 08:15 Pulse Rate 68 03/03/17 08:15 Respiratory Rate 20 03/03/17 08:15 Blood Pressure 126/60 03/03/17 08:15 O2 Sat by Pulse Oximetry (%) 98 03/03/17 08:15 Assessment/Plan 89 year old gentleman with PMhx of CAD s/p recent cardiac stent, CHF, Hyperlipidemia, BPH, Gout who presented with complaints of SOB, worsening LE edema and found to have acute HF and BERT. #Acute/Subacute Renal Injury in setting of HF and volume overload Differential includes: Cardio-Renal Syndrome vs. DAYDAY/ATN Check FeUrea, UPCR no acute indication for renal imaging at this time continue IV Lasix, consider increasing to BID for more effective diureis s trend BUN/Cr and electrolyses with diuresis Dose all meds for CrCl less then 20 avoid NSAIDs hold ACEi for now #CAD/CHF Cardiology following Tele monitoring continue IV lasix check daily weights #Hypertension BP at [place] continue metorpolol, hydralazine, Imdur hold ACEi b/c of BERT #Hypomagnesemia supplement with IV mag today check levels daily #Hyponatremia secondary to volume overload continue IV lasix trend daily #Hypocalcemia corrected Ca is WNL Thank you Will follow Luiz Soni DO
[2017-03-03] MEDS: TRIAMCINOLONE ACET 0.1% CREAM 15 GM TUBE TP SCH (11:13)
[2017-03-03] MEDS: DOCUSATE SODIUM 100 MG CAPSULE (FP) PO SCH ×2 (11:23→21:58)
[2017-03-03] MEDS: TAMSULOSIN HCL 0.4 MG CAP.ER.24H (FP) PO SCH (11:24)
[2017-03-03] MEDS: hydrALAZINE HCL 50 MG TABLET (FP) PO SCH (11:24)
[2017-03-03] MEDS: CLOPIDOGREL BISULFATE 75 MG TABLET (FP) PO SCH (11:29)
[2017-03-03] MEDS: FUROSEMIDE 40 MG/4 ML INJECTABLE VIAL IVPUSH SCH (11:29)
[2017-03-03] MEDS: ASPIRIN 81 MG CHEWABLE TABLETS PO SCH (11:29)
[2017-03-03] MEDS: ISOSORBIDE MONONITRATE 60 MG TAB.SR.24H (FP) PO SCH (11:29)
[2017-03-03] MEDS: PANTOPRAZOLE 20 MG TABLET (FP) PO SCH (11:29)
[2017-03-03] MEDS: METOPROLOL SUCCINATE 25 MG TAB.SR.24H (FP) PO SCH (11:30)
[2017-03-03] MEDS ORDERED: HEPARIN NA (PORCINE) 5,000 UNITS/ML 1ML VIAL IVPUSH PRN ×2 (12:01)
[2017-03-03] MEDS ORDERED: HEPARIN INFUSION - 25,000 UNITS/500 ML INFUS.BAG IVPB SCH (12:15)
--- NOTE | 2017-03-03 12:44 | EKG ---
Test Reason : Blood Pressure : / mmHG Vent. Rate : 049 BPM Atrial Rate : 046 BPM P-R Int : 000 ms QRS Dur : 098 ms QT Int : 440 ms P-R-T Axes : 000 043 063 degrees QTc Int : 397 ms ATRIAL FIBRILLATION WITH SLOW VENTRICULAR RESPONSE ABNORMAL ECG WHEN COMPARED WITH ECG OF 02-MAR-2017 14:49, NO SIGNIFICANT CHANGE WAS FOUND Confirmed by DIMITRIOS MAY MD ([id number]) on 03/03/2017 12:43:49 PM Referred By: Confirmed By:DIMITRIOS MAY MD
[2017-03-03] MEDS: HEPARIN SOD,PORK IN 0.45% NACL 25,000 UNITS/500 ML INFUS.BAG IVPB SCH ×2 (12:45→18:08)
--- NOTE | 2017-03-03 13:07 | PN ---
Teaching Attending Note Name of Resident: Belinda Aguirre ATTENDING PHYSICIAN STATEMENT I saw and evaluated the patient. I reviewed the resident's note and discussed the case with the resident. I agree with the resident's findings and plan as documented. SUBJECTIVE:breathing improved. however states he only had dypnea on exertion and had not gotten out of bed since arrival. denies cp, fever, chills, N/V/C/D or palpitations OBJECTIVE: Last Vital Signs Temp Pulse Resp BP Pulse Ox 98.3 F 68 20 126/60 98 03/03/17 08:15 03/03/17 08:15 03/03/17 08:15 03/03/17 08:15 03/03/17 08:15 Intake & Output 02/28/17 03/01/17 03/02/17 03/03/17 23:59 23:59 23:59 23:59 Weight 163 lb 163 lb General NAD CV S1 S2 irregular Lungs decreased bases no wheezing abdomen soft +distended +umbilical hernia extremities 1+ pitting edema ASSESSMENT AND PLAN: 89yo M with PMH HTn, CKD, dyslipidemia, CAD s/p recent stent, diastoic CHF presented with dyspnea and weight gain 1. acute on chronic diastolic CHF- clinically improved. dry weight 150 per pt. cont lasix 40mg IV daily, monitor electrolytes. echo pending. cont metoprolol 2. New onset afib- rate controlled. titrate up rate control as needed. high chadsvasc. FOBT negative. started on heparin ggt. f/u echo. cardio on board. 3. BERT- likely pre-renal. improved with diuresis. hold acei. nephrology on board 4. hypomagnesmia- Mg 2g 5. hyponatremia- due to CHF 6. Transaminitis- due to hepatic congestion. improved. hepatitis panel pending. u/s pending 7. normocytic anemia- hgb at baseline. no signs of bleeding. 8. DVT ppx- hep ggt 9. spoke with about plan. answered all questions, verbalized understanding and agreement with plan
[2017-03-03] MEDS: MAGNESIUM 1GM/D5W - 1 GM/100 ML IVPB IVPB SCH ×2 (14:00→18:20)
--- NOTE | 2017-03-03 14:05 | PN ---
Physical Exam: SUBJECTIVE: Patient seen and examined. Pt reports breathing and orthopnea have improved, and chronic cough with clear phlegm. Pt denies chest pain, abdominal pain, fever, chills. No events overnight. OBJECTIVE: Vital Signs Period Temp Pulse Resp BP Sys/Clifton Pulse Ox Last 24 Hr 98.2 F-98.9 F 60-89 18-20 121-128/58-86 95-99 GENERAL: The patient is awake, alert, and fully oriented, in no acute distress. LUNGS: Decreased breath sounds in jessa lung bases. No wheezing, crackles, rhonchi. HEART: Irregularly irregular, +S1/S2. ABDOMEN: Soft, nontender, nondistended, no guarding. EXTREMITIES: Warm, well-perfused. 1+ jessa pitting edema. PSYCH: Normal mood, normal affect. SKIN: Warm, dry, normal turgor, no rashes or lesions noted Laboratory Results - last 24 hr 03/02/17 03/02/17 03/02/17 14:00 14:00 15:47 WBC 6.3 RBC 2.61 L Hgb 8.2 L D Hct 24.8 L MCV 95.0 MCH 31.3 MCHC 33.0 RDW 17.0 H Plt Count 215 MPV 9.9 Neutrophils % 72.2 D Lymphocytes % 14.6 D Monocytes % 11.9 H Eosinophils % 0.4 Basophils % 0.9 PT with INR 15.30 H INR 1.35 H Sodium Potassium Chloride Carbon Dioxide Anion Gap BUN Creatinine Creat Clearance w eGFR Random Glucose Serum Osmolality Calcium Phosphorus Magnesium 1.1 L D Total Bilirubin AST ALT Alkaline Phosphatase Creatine Kinase Creatine Kinase Index CK-MB (CK-2) Troponin I B-Natriuretic Peptide 7049 H Total Protein Albumin Urine Osmolality Stool Occult Blood 03/02/17 03/03/17 03/03/17 15:47 00:45 02:45 WBC RBC Hgb Hct MCV MCH MCHC RDW Plt Count MPV Neutrophils % Lymphocytes % Monocytes % Eosinophils % Basophils % PT with INR INR Sodium 132 L Potassium 4.5 Chloride 99 Carbon Dioxide 24 Anion Gap 9 BUN 56 H D Creatinine 2.1 H D Creat Clearance w eGFR 29.89 Random Glucose 142 H D Serum Osmolality Calcium 7.9 L Phosphorus Magnesium Total Bilirubin 0.6 D AST 48 H D ALT 83 H D Alkaline Phosphatase 94 D Creatine Kinase 152 123 Creatine Kinase Index 2.1 CK-MB (CK-2) 3.2 Troponin I 0.03 D 0.03 B-Natriuretic Peptide Total Protein 6.0 L Albumin 3.0 L Urine Osmolality Stool Occult Blood Negative 03/03/17 03/03/17 03/03/17 06:32 06:32 06:32 WBC 6.6 RBC 2.61 L Hgb 8.0 L Hct 24.6 L MCV 94.4 MCH 30.5 MCHC 32.3 RDW 16.6 H Plt Count 207 MPV 9.4 Neutrophils % 69.4 Lymphocytes % 16.7 Monocytes % 12.5 H Eosinophils % 1.0 D Basophils % 0.4 PT with INR 15.80 H INR 1.40 H Sodium 135 L Potassium 4.0 Chloride 101 Carbon Dioxide 24 Anion Gap 10 BUN 56 H Creatinine 1.8 H Creat Clearance w eGFR 35.70 Random Glucose 96 D Serum Osmolality Calcium 7.7 L Phosphorus 3.4 Magnesium 1.0 L Total Bilirubin 0.9 D AST 37 D ALT 79 H Alkaline Phosphatase 87 Creatine Kinase 113 Creatine Kinase Index CK-MB (CK-2) Troponin I 0.03 B-Natriuretic Peptide Total Protein 6.0 L Albumin 3.1 L Urine Osmolality Stool Occult Blood 03/03/17 06:32 WBC RBC Hgb Hct MCV MCH MCHC RDW Plt Count MPV Neutrophils % Lymphocytes % Monocytes % Eosinophils % Basophils % PT with INR INR Sodium Potassium Chloride Carbon Dioxide Anion Gap BUN Creatinine Creat Clearance w eGFR Random Glucose Serum Osmolality 288 Calcium Phosphorus Magnesium Total Bilirubin AST ALT Alkaline Phosphatase Creatine Kinase Creatine Kinase Index CK-MB (CK-2) Troponin I B-Natriuretic Peptide Total Protein Albumin Urine Osmolality Cancelled Stool Occult Blood Active Medications Generic Name Dose Route Start Last Admin Trade Name Tavonq PRN Reason Stop Dose Admin Aspirin 81 mg 03/03/17 10:00 03/03/17 11:29 Asa - PO 81 mg DAILY [facility] Administration Atorvastatin Calcium 80 mg 03/03/17 22:00 Lipitor - PO HS [facility] Clopidogrel Bisulfate 75 mg 03/03/17 10:00 03/03/17 11:29 Plavix - PO 75 mg DAILY [facility] Administration Docusate Sodium 100 mg 03/02/17 22:00 03/03/17 11:23 Colace - PO 100 mg BID [facility] Administration Furosemide 40 mg 03/03/17 10:00 03/03/17 11:29 Lasix Injection - IVPUSH 40 mg DAILY [facility] Administration Heparin Sodium (Porcine) 1,000 unit 03/03/17 12:01 Heparin - IVPUSH PRN PRN Heparin Heparin Sodium (Porcine) 5,000 unit 03/03/17 12:01 Heparin - IVPUSH PRN PRN Heparin Hydralazine HCl 50 mg 03/03/17 10:00 03/03/17 11:24 Apresoline - PO 50 mg DAILY [facility] Administration Magnesium Sulfate/Dextrose 1 gm in 100 mls @ 100 mls/hr 03/03/17 13:00 Magnesium 1gm/D5w - IVPB 03/03/17 14:59 Q1H [facility] HEPARIN SOD,PORK IN 0.45% NACL 25,000 units in 500 mls @ 20 mls/hr 03/03/17 12 :38 03/03/17 12:45 Heparin-1/2ns 25,000 Units/500 IVPB 1,000 units/hr TITR [facility] 20 mls/hr Protocol Administration 1,000 UNITS/HR Isosorbide Mononitrate 60 mg 03/03/17 10:00 03/03/17 11:29 Imdur - PO 60 mg DAILY [facility] Administration Metoprolol Succinate 25 mg 03/03/17 10:00 03/03/17 11:30 Toprol Xl - PO 25 mg DAILY [facility] Administration Pantoprazole Sodium 20 mg 03/03/17 10:00 03/03/17 11:29 Protonix - PO 20 mg DAILY [facility] Administration Tamsulosin HCl 0.4 mg 03/03/17 08:30 03/03/17 11:24 Flomax - PO Not Given DAILY@0830 [facility] Triamcinolone Acetonide 1 applic 03/03/17 10:00 03/03/17 11:13 Aristocort 0.1% Cream - TP Not Given DAILY [facility] IMAGIN03/02/17 Renal US -> no hydronephrosis. Mild, symmetric, age-related renal cortical atrophy. Free fluid in RUQ. 03/02/17 CXR -> moderate pulmonary vascular congestion. Small Right pleural effusion with atelectasis vs consolidation in Right lower lung. Very small Left pleural effusion, ?moderate CHF. Stable enlargement of cardiac silhouette. 03/03/17 CXR -> Right pleural effusion with Right basilar consolidation. 03/03/17 Echo -> normal LV systolic function; moderately dilated LA and RA; moderately severe MR and TR; significant pulmonary HTN. ASSESSMENT/PLAN: 89M with PMH of htn, CKD, hld, CAD s/p recent stent, Diastolic CHF, presented with dyspnea and reported wt gain x 3 weeks. # acute on chronic exacerbation of Diastolic CHF - likely exacerbated by new onset afib - clinically improved - pt reports Dry Weight of 153# - most recent Echo 10/2015 -> Normal LV function, EF 75%. Biatrial dilatation. Moderate MR, severe TR, mild/moderate [place]. - continue Lasix 40mg IVpush daily, consider increasing to BID for more effective diuresis - continue Metoprolol - strict I&O's - daily wts # new onset afib - rated controlled - FOBT (-) - start Heparin drip - Cardiology (Dr. Moyer) recs appreciated # BERT - likely pre-renal possibly 2/2 cardio-renal syndrome - improving - Nephrology (Dr. Soni) recs appreciated: renally dose medications, avoid NSAIDs, hold ACEi for now # CAD - recent stent of LAD 01/2017 - continue Plavix and ASA - continue Lipitor # normocytic anemia - hgb at baseline and stable - no overt signs of bleeding - FOBT (-) - continue to monitor CBC # transaminits - likely 2/2 hepatic congestion - improving today - f/u hepatitis panel # electrolyte abnormalities - hyponatremia likely 2/2 CHF, improved today - hypomagnesemia repleted with Mg 2gm IVPB # FEN - Fluids: po - Electrolytes: continue to monitor - Nutrition: low sodium diet # Prophylaxis - DVT ppx with Heparin drip - GI ppx with Protonix Visit type - Emergency Visit Emergency Visit: Yes ED Registration Date: 03/02/17 Care time: The patient presented to the Emergency Department on the above date and was hospitalized for further evaluation of their emergent condition. - New Patient This patient is new to me today: Yes Date on this admission: 03/03/17 - Critical Care Critical Care patient: No
[2017-03-03] MEDS ORDERED: MAGNESIUM SULF 50% (8.12 MEQ/2 ML-1 GM VIAL) ONE (16:06)
[2017-03-03 21:11] LABS: URINE APPEARANCE CLEAR; URINE BILIRUBIN NEGATIVE (NEGATIVE); URINE BLOOD NEGATIVE (NEGATIVE); URINE COLOR STRAW; URINE GLUCOSE (UA) NEGATIVE (NEGATIVE); URINE KETONE NEGATIVE (NEGATIVE); URINE LEUK ESTERASE NEGATIVE (NEGATIVE); URINE NITRITE NEGATIVE (NEGATIVE); URINE PROTEIN NEGATIVE (NEGATIVE); URINE UROBILINOGEN NEGATIVE mg/dL (0.2-1.0)
[2017-03-03] MEDS: ATORVASTATIN CA 80 MG TABLET (FP) PO SCH (21:58)
[2017-03-04 06:42] LABS: BASO % 0.8 % (0-2.0); EOS % 1.6 % (0-4.5); HEMOGLOBIN 7.8 GM/dL (11.7-16.9); LYMPH % 24.1 % (8-40); MCHC 32.6 g/dl (32.0-35.9); MEAN CELL VOLUME 94.9 fl (80-96); MEAN PLT VOLUME 9.4 fl (7.5-11.1); MONO % 14.7 % (3.8-10.2); NEUT % 58.8 % (42.8-82.8); PLATELET COUNT 180 K/MM3 (134-434); RBC 2.53 M/mm3 (4.00-5.60); RDW 16.4 % (11.9-15.9); WHITE BLOOD COUNT 6.6 K/mm3 (4.0-10.0)
[2017-03-04 07:58] LABS: ALBUMIN 2.8 g/dl (3.4-5.0); ALK PHOS 75 U/L (45-117); ANION GAP 10 (8-16); BILIRUBIN,TOTAL 0.8 mg/dL (0.2-1.0); BLOOD UREA NITROGEN 50 mg/dL (7-18); CALCIUM 7.9 mg/dL (8.5-10.1); CHLORIDE 101 mmol/L (98-107); CO2 25 mmol/L (21-32); CREATININE 1.7 mg/dL (0.7-1.3); GLUCOSE,RANDOM 96 mg/dL (74-106); MAGNESIUM 1.5 mg/dL (1.8-2.4); PHOSPHOROUS 3.3 mg/dL (2.5-4.9); POTASSIUM 3.9 mmol/L (3.5-5.1); SGOT/AST 23 U/L (15-37); SGPT/ALT 63 U/L (12-78); SODIUM 136 mmol/L (136-145); TOT PROT 5.6 g/dl (6.4-8.2)
--- NOTE | 2017-03-04 09:31 | EKG ---
Test Reason : Blood Pressure : / mmHG Vent. Rate : 064 BPM Atrial Rate : 075 BPM P-R Int : 000 ms QRS Dur : 098 ms QT Int : 422 ms P-R-T Axes : 000 -05 -03 degrees QTc Int : 435 ms ATRIAL FIBRILLATION MODERATE VOLTAGE CRITERIA FOR LVH, MAY BE NORMAL VARIANT NONSPECIFIC T WAVE ABNORMALITY ABNORMAL ECG Confirmed by MD SHEEBA, REBEKAH ([id number]) on 03/04/2017 9:30:41 AM Referred By: Confirmed By:REBEKAH ALY MD
[2017-03-04] MEDS: hydrALAZINE HCL 50 MG TABLET (FP) PO SCH (09:32)
[2017-03-04] MEDS: DOCUSATE SODIUM 100 MG CAPSULE (FP) PO SCH ×2 (09:32→21:56)
[2017-03-04] MEDS: TAMSULOSIN HCL 0.4 MG CAP.ER.24H (FP) PO SCH (09:32)
[2017-03-04] MEDS: ASPIRIN 81 MG CHEWABLE TABLETS PO SCH (09:33)
[2017-03-04] MEDS: PANTOPRAZOLE 20 MG TABLET (FP) PO SCH (09:33)
[2017-03-04] MEDS: ISOSORBIDE MONONITRATE 60 MG TAB.SR.24H (FP) PO SCH (09:33)
[2017-03-04] MEDS: CLOPIDOGREL BISULFATE 75 MG TABLET (FP) PO SCH (09:33)
[2017-03-04] MEDS: METOPROLOL SUCCINATE 25 MG TAB.SR.24H (FP) PO SCH (09:33)
[2017-03-04] MEDS ORDERED: MAGNESIUM SULF 50% (8.12 MEQ/2 ML-1 GM VIAL) IVPB ONE ×2 (09:38→16:39)
[2017-03-04] MEDS: FUROSEMIDE 40 MG/4 ML INJECTABLE VIAL IVPUSH SCH (09:39)
[2017-03-04] MEDS ORDERED: MAGNESIUM 1GM/D5W - 1 GM/100 ML IVPB IVPB ONE (10:30)
[2017-03-04] MEDS ORDERED: MAGNESIUM SULF 50% (8.12 MEQ/2 ML-1 GM VIAL) ONE (11:53)
[2017-03-04] MEDS: TRIAMCINOLONE ACET 0.1% CREAM 15 GM TUBE TP SCH (12:54)
--- NOTE | 2017-03-04 13:03 | PN ---
Progress Note (short form) - Note Progress Note: Renal Follow up for BERT Pt seen and examined at the bedside awake and alert reports feeling better no sob no weight recorded today good urine output Vital Signs Temperature 98.7 F 03/04/17 05:00 Pulse Rate 67 03/04/17 09:00 Respiratory Rate 18 03/04/17 09:00 Blood Pressure 134/55 03/04/17 09:00 O2 Sat by Pulse Oximetry (%) 98 03/04/17 09:00 Intake & Output 03/01/17 03/02/17 03/03/17 03/04/17 23:59 23:59 23:59 23:59 Intake Total 360 494 Output Total 900 325 Balance -540 169 Weight 73.936 kg 73.936 kg NAD irregular CTA + edema extending to mid arriola CBC, BMP 03/04/17 06:15 03/04/17 06:15 Laboratory Tests 03/04/17 06:15 Calcium 7.9 L Phosphorus 3.3 Magnesium 1.5 L D Albumin 2.8 L Current Medications Aspirin (Asa -) 81 mg PO DAILY [facility] Last Admin: 03/04/17 09:33 Dose: 81 mg Atorvastatin Calcium (Lipitor -) 80 mg PO HS [facility] Last Admin: 03/03/17 21:58 Dose: 80 mg Clopidogrel Bisulfate (Plavix -) 75 mg PO DAILY [facility] Last Admin: 03/04/17 09:33 Dose: 75 mg Docusate Sodium (Colace -) 100 mg PO BID [facility] Last Admin: 03/04/17 09:32 Dose: 100 mg Furosemide (Lasix Injection -) 40 mg IVPUSH DAILY [facility] Last Admin: 03/04/17 09:39 Dose: 40 mg Heparin Sodium (Porcine) (Heparin -) 1,000 unit IVPUSH PRN PRN PRN Reason: Heparin Last Admin: 03/03/17 18:08 Dose: 1,000 unit Heparin Sodium (Porcine) (Heparin -) 5,000 unit IVPUSH PRN PRN PRN Reason: Heparin Hydralazine HCl (Apresoline -) 50 mg PO DAILY [facility] Last Admin: 03/04/17 09:32 Dose: 50 mg HEPARIN SOD,PORK IN 0.45% NACL (Heparin-1/2ns 25,000 Units/500) 25,000 units in 500 mls @ 20 mls/hr IVPB TITR [facility]; 1,000 UNITS/HR PRN Reason: Protocol Last Admin: 03/03/17 18:08 Dose: 1,100 units/hr, 22 mls/hr Isosorbide Mononitrate (Imdur -) 60 mg PO DAILY [facility] Last Admin: 03/04/17 09:33 Dose: 60 mg Metoprolol Succinate (Toprol Xl -) 25 mg PO DAILY [facility] Last Admin: 03/04/17 09:33 Dose: 25 mg Pantoprazole Sodium (Protonix -) 20 mg PO DAILY [facility] Last Admin: 03/04/17 09:33 Dose: 20 mg Tamsulosin HCl (Flomax -) 0.4 mg PO DAILY@0830 [facility] Last Admin: 03/04/17 09:32 Dose: 0.4 mg Triamcinolone Acetonide (Aristocort 0.1% Cream -) 1 applic TP DAILY [facility] Last Admin: 03/04/17 12:54 Dose: Not Given 89 year old gentleman with PMhx of CAD s/p recent cardiac stent, CHF, Hyperlipidemia, BPH, Gout who presented with complaints of SOB, worsening LE edema and found to have acute HF and BERT. #Acute/Subacute Renal Injury in setting of HF and volume overload Renal function with improvement with IV Lasix FeNa was 3.12% but is not helpful in setting of diuretics continue Lasix IV and titrate to achieve weight loss todays weight not recorded trend BUN/cr and electrolytes with diuresis keep K ~4, Mg > 2 no ACEi/ARB for now #CAD/CHF Cardiology following Tele monitoring continue IV lasix check daily weights #Hypomagnesemia supplement with IV mag today check levels daily can consider changing PPI to H2 [place] if Mg remains very low #Anemia Check stool for occult blood check iron profile transfuse as per primary team Luiz Soni DO
[2017-03-04] MEDS: HEPARIN SOD,PORK IN 0.45% NACL 25,000 UNITS/500 ML INFUS.BAG IVPB SCH (14:07)
[2017-03-04 14:56] LABS: URINE CREATININE 41.2 mg/dL (20-370)
--- NOTE | 2017-03-04 15:25 | PN ---
Physical Exam: SUBJECTIVE: Patient seen and examined. Pt denies sob, chest pain, abdominal pain, fever, chills. No events overnight. OBJECTIVE: Vital Signs Period Temp Pulse Resp BP Sys/[place]if[place] Pulse Ox Last 24 Hr 98.0 F-98.8 F 50-67 18-18 100-134/37-55 95-98 GENERAL: The patient is awake, alert, and fully oriented, in no acute distress. LUNGS: CTAB. HEART: Irregularly irregular, +S1/S2. ABDOMEN: Soft, nontender, nondistended, no guarding. EXTREMITIES: Warm, well-perfused. 1+ jessa pitting edema. PSYCH: Normal mood, normal affect. SKIN: Warm, dry, normal turgor, no rashes or lesions noted Laboratory Results - last 24 hr 03/03/17 03/03/17 03/03/17 06:32 15:50 18:30 WBC RBC Hgb Hct MCV MCH MCHC RDW Plt Count MPV Neutrophils % Lymphocytes % Monocytes % Eosinophils % Basophils % PTT (Actin FS) 49.4 H D Sodium Potassium Chloride Carbon Dioxide Anion Gap BUN Creatinine Creat Clearance w eGFR Random Glucose Calcium Phosphorus Magnesium Total Bilirubin AST ALT Alkaline Phosphatase Total Protein Albumin Urine Color Straw Urine Appearance Clear Urine pH 5.0 Ur Specific [place] 1.006 Urine Protein Negative Urine Glucose (UA) Negative Urine Ketones Negative Urine Blood Negative Urine Nitrite Negative Urine Bilirubin Negative Urine Urobilinogen Negative Ur Leukocyte Esterase Negative U Random Total Protein Ur Random Sodium Ur Random Potassium Ur Random Chloride Ur Random Urea Nitrogn Urine Creatinine Hepatitis A IgM Ab Negative Hep Bs Antigen Negative Hep B Core IgM Ab Negative Hepatitis C Antibody 0.1 03/03/17 03/03/17 03/03/17 18:30 18:30 18:30 WBC RBC Hgb Hct MCV MCH MCHC RDW Plt Count MPV Neutrophils % Lymphocytes % Monocytes % Eosinophils % Basophils % PTT (Actin FS) Sodium Potassium Chloride Carbon Dioxide Anion Gap BUN Creatinine Creat Clearance w eGFR Random Glucose Calcium Phosphorus Magnesium Total Bilirubin AST ALT Alkaline Phosphatase Total Protein Albumin Urine Color Urine Appearance Urine pH Ur Specific [place] Urine Protein Urine Glucose (UA) Urine Ketones Urine Blood Urine Nitrite Urine Bilirubin Urine Urobilinogen Ur Leukocyte Esterase U Random Total Protein 7 Ur Random Sodium 75 Ur Random Potassium Ur Random Chloride Ur Random Urea Nitrogn Urine Creatinine 32.1 Hepatitis A IgM Ab Hep Bs Antigen Hep B Core IgM Ab Hepatitis C Antibody 03/03/17 03/04/17 03/04/17 23:40 06:15 06:15 WBC 6.6 RBC 2.53 L Hgb 7.8 L Hct 24.0 L MCV 94.9 MCH 31.0 MCHC 32.6 RDW 16.4 H Plt Count 180 MPV 9.4 Neutrophils % 58.8 Lymphocytes % 24.1 D Monocytes % 14.7 H Eosinophils % 1.6 Basophils % 0.8 PTT (Actin FS) 61.4 H Sodium 136 Potassium 3.9 Chloride 101 Carbon Dioxide 25 Anion Gap 10 BUN 50 H Creatinine 1.7 H Creat Clearance w eGFR 38.14 Random Glucose 96 Calcium 7.9 L Phosphorus 3.3 Magnesium 1.5 L D Total Bilirubin 0.8 AST 23 D ALT 63 D Alkaline Phosphatase 75 Total Protein 5.6 L Albumin 2.8 L Urine Color Urine Appearance Urine pH Ur Specific [place] Urine Protein Urine Glucose (UA) Urine Ketones Urine Blood Urine Nitrite Urine Bilirubin Urine Urobilinogen Ur Leukocyte Esterase U Random Total Protein Ur Random Sodium Ur Random Potassium Ur Random Chloride Ur Random Urea Nitrogn Urine Creatinine Hepatitis A IgM Ab Hep Bs Antigen Hep B Core IgM Ab Hepatitis C Antibody 03/04/17 03/04/17 03/04/17 13:20 13:20 13:20 WBC RBC Hgb Hct MCV MCH MCHC RDW Plt Count MPV Neutrophils % Lymphocytes % Monocytes % Eosinophils % Basophils % PTT (Actin FS) Sodium Potassium Chloride Carbon Dioxide Anion Gap BUN Creatinine Creat Clearance w eGFR Random Glucose Calcium Phosphorus Magnesium Total Bilirubin AST ALT Alkaline Phosphatase Total Protein Albumin Urine Color Urine Appearance Urine pH Ur Specific [place] Urine Protein Urine Glucose (UA) Urine Ketones Urine Blood Urine Nitrite Urine Bilirubin Urine Urobilinogen Ur Leukocyte Esterase U Random Total Protein Ur Random Sodium 64 Cancelled Ur Random Potassium 18.0 Ur Random Chloride 78 Ur Random Urea Nitrogn 312 Urine Creatinine 41.2 Cancelled Hepatitis A IgM Ab Hep Bs Antigen Hep B Core IgM Ab Hepatitis C Antibody Active Medications Generic Name Dose Route Start Last Admin Trade Name Freq PRN Reason Stop Dose Admin Aspirin 81 mg 03/03/17 10:00 03/04/17 09:33 Asa - PO 81 mg DAILY RIANNA Administration Atorvastatin Calcium 80 mg 03/03/17 22:00 03/03/17 21:58 Lipitor - PO 80 mg HS RIANNA Administration Clopidogrel Bisulfate 75 mg 03/03/17 10:00 03/04/17 09:33 Plavix - PO 75 mg DAILY RIANNA Administration Docusate Sodium 100 mg 03/02/17 22:00 03/04/17 09:32 Colace - PO 100 mg BID RIANNA Administration Furosemide 40 mg 03/03/17 10:00 03/04/17 09:39 Lasix Injection - IVPUSH 40 mg DAILY RIANNA Administration Heparin Sodium (Porcine) 1,000 unit 03/03/17 12:01 03/03/17 18:08 Heparin - IVPUSH 1,000 unit PRN PRN Administration Heparin Heparin Sodium (Porcine) 5,000 unit 03/03/17 12:01 Heparin - IVPUSH PRN PRN Heparin Hydralazine HCl 50 mg 03/03/17 10:00 03/04/17 09:32 Apresoline - PO 50 mg DAILY RIANNA Administration HEPARIN SOD,PORK IN 0.45% NACL 25,000 units in 500 mls @ 20 mls/hr 03/03/17 12 :38 03/04/17 14:07 Heparin-1/2ns 25,000 Units/500 IVPB 1,100 units/hr TITR RIANNA 22 mls/hr Protocol Administration 1,000 UNITS/HR Isosorbide Mononitrate 60 mg 03/03/17 10:00 03/04/17 09:33 Imdur - PO 60 mg DAILY RIANNA Administration Metoprolol Succinate 25 mg 03/03/17 10:00 03/04/17 09:33 Toprol Xl - PO 25 mg DAILY RIANNA Administration Pantoprazole Sodium 20 mg 03/03/17 10:00 03/04/17 09:33 Protonix - PO 20 mg DAILY RIANNA Administration Tamsulosin HCl 0.4 mg 03/03/17 08:30 03/04/17 09:32 Flomax - PO 0.4 mg DAILY@0830 RIANNA Administration Triamcinolone Acetonide 1 applic 03/03/17 10:00 03/04/17 12:54 Aristocort 0.1% Cream - TP Not Given DAILY RIANNA IMAGIN03/03/17 Ab US -> borderline hepatomegaly with a slightly nodular contour and slightly coarse echotexture. Small amount of free fluid/ascites in jessa upper abdomen. Right pleural effusion. ASSESSMENT/PLAN: 89M with PMH of htn, CKD, hld, CAD s/p recent stent, Diastolic CHF, presented with dyspnea and reported wt gain x 3 weeks. # acute on chronic exacerbation of Diastolic CHF - likely exacerbated by new onset afib - clinically improved - pt reports Dry Weight of 153# - most recent Echo 10/2015 -> Normal LV function, EF 75%. Biatrial dilatation. Moderate MR, severe TR, mild/moderate AR/IA. - continue Lasix 40mg IVpush daily, consider increasing to BID for more effective diuresis - continue Metoprolol - strict I&O's - daily wts # new onset afib - rated controlled - FOBT (-) - Heparin drip - monitor PTT # BERT in setting of HF and volume overload - improving with IV Lasix - Nephrology (Dr. Soni) recs appreciated: keep K ~4, Mg > 2, renally dose medications, avoid NSAIDs, hold ACEi for now # CAD - recent stent of LAD 01/2017 - continue Plavix and ASA - continue Lipitor # normocytic anemia - hgb at baseline and stable - transfuse hgb < 7 - no overt signs of bleeding - FOBT (-) - continue to monitor CBC # transaminits - likely 2/2 hepatic congestion - resolved - hepatitis panel (-) # hypomagnesemia - repleted with Mg 1gm IVPB x 2 - Nephrology (Dr. Soni) recs appreciated: consider changing PPI to H2 [place] if Mg remains very low # FEN - Fluids: po - Electrolytes: continue to monitor - Nutrition: low sodium diet # Prophylaxis - DVT ppx with Heparin drip - GI ppx with Protonix - deconditioning ppx with PT Visit type - Emergency Visit Emergency Visit: Yes ED Registration Date: 03/02/17 Care time: The patient presented to the Emergency Department on the above date and was hospitalized for further evaluation of their emergent condition. - New Patient This patient is new to me today: No - Critical Care Critical Care patient: No
--- NOTE | 2017-03-04 16:36 | PN ---
Progress Note, Physician Chief Complaint: Pt A&Ox3; not dyspneic; no chest pain or palpitations.Legs feel less heavy. Not dyspneic, but has not been out of bed since hospitalized, thus unable to assess for THOMAS. History of Present Illness: Mr Pham is an 89 year old white man with past medical history of diastolic CHF; CAD-->PCI (DEstent LAD 01/2017), Gout, enlarged prostate, hypertension, and hyperlipidemia, who presents to the emergency department with complaints of SOB. hx CHF, worsening dyspnea on exertion, 13 lb weight gain in 3 weeks, swelling of legs. PMH Condition Date Treating Physician Comments ?esptic shock/dehydration, with transient multiorgan failure, hypotension, bradycardia leading to intubation, atropine, and pressors (see page 1 of note) anxiety/depression ASHD: negative stress MIBI 12/18/10 chronic bilateral leg swelling diastolic CHF hypercholesterolemia large ventral hernia mild anemia pre-syncope (dizzy; held onto wall; denies LOC) truncal obesity ventral hernia PCI ILIANA LAD [facility] 02-02-2017 - Current Medication List Current Medications: Active Medications Aspirin (Asa -) 81 mg PO DAILY [facility] Last Admin: 03/04/17 09:33 Dose: 81 mg Atorvastatin Calcium (Lipitor -) 80 mg PO HS [facility] Last Admin: 03/03/17 21:58 Dose: 80 mg Clopidogrel Bisulfate (Plavix -) 75 mg PO DAILY [facility] Last Admin: 03/04/17 09:33 Dose: 75 mg Docusate Sodium (Colace -) 100 mg PO BID [facility] Last Admin: 03/04/17 09:32 Dose: 100 mg Furosemide (Lasix Injection -) 40 mg IVPUSH DAILY [facility] Last Admin: 03/04/17 09:39 Dose: 40 mg Heparin Sodium (Porcine) (Heparin -) 1,000 unit IVPUSH PRN PRN PRN Reason: Heparin Last Admin: 03/03/17 18:08 Dose: 1,000 unit Heparin Sodium (Porcine) (Heparin -) 5,000 unit IVPUSH PRN PRN PRN Reason: Heparin Hydralazine HCl (Apresoline -) 50 mg PO DAILY [facility] Last Admin: 03/04/17 09:32 Dose: 50 mg HEPARIN SOD,PORK IN 0.45% NACL (Heparin-1/2ns 25,000 Units/500) 25,000 units in 500 mls @ 20 mls/hr IVPB TITR RIANNA; 1,000 UNITS/HR PRN Reason: Protocol Last Admin: 03/04/17 14:07 Dose: 1,100 units/hr, 22 mls/hr Isosorbide Mononitrate (Imdur -) 60 mg PO DAILY [facility] Last Admin: 03/04/17 09:33 Dose: 60 mg Metoprolol Succinate (Toprol Xl -) 25 mg PO DAILY [facility] Last Admin: 03/04/17 09:33 Dose: 25 mg Pantoprazole Sodium (Protonix -) 20 mg PO DAILY [facility] Last Admin: 03/04/17 09:33 Dose: 20 mg Tamsulosin HCl (Flomax -) 0.4 mg PO DAILY@0830 [facility] Last Admin: 03/04/17 09:32 Dose: 0.4 mg Triamcinolone Acetonide (Aristocort 0.1% Cream -) 1 applic TP DAILY [facility] Last Admin: 03/04/17 12:54 Dose: Not Given - Objective Vital Signs: Vital Signs Temperature 98.9 F 03/04/17 13:00 Pulse Rate 55 L 03/04/17 13:00 Respiratory Rate 20 03/04/17 13:00 Blood Pressure 117/51 03/04/17 13:00 O2 Sat by Pulse Oximetry (%) 98 03/04/17 09:00 Constitutional: Yes: Anxious Eyes: Yes: WNL HENT: Yes: WNL Neck: Yes: WNL Cardiovascular: Yes: S1 (varies in intensity), S2 Respiratory: Yes: Diminished (right base) Gastrointestinal: Yes: Soft ...Rectal Exam: Yes: Deferred Genitourinary: No: Anuria Musculoskeletal: Yes: Muscle Weakness Extremities: Yes: Cool Edema: No Peripheral Pulses WNL: No Peripheral Pulses: Left Femoral: 1+, Right Femoral: 1+ Integumentary: Yes: WNL Neurological: Yes: Alert, Oriented, Weakness Psychiatric: Yes: WNL Labs: CBC, BMP 03/04/17 06:15 03/04/17 06:15 INR, PTT INR 1.40 (0.82-1.09) H 03/03/17 06:32 Abnormal Lab Results 03/03/17 03/04/17 03/04/17 23:40 06:15 06:15 RBC 2.53 L Hgb 7.8 L Hct 24.0 L RDW 16.4 H Monocytes % 14.7 H PTT (Actin FS) 61.4 H BUN 50 H Creatinine 1.7 H Calcium 7.9 L Magnesium 1.5 L D Total Protein 5.6 L Albumin 2.8 L 03/04/17 20:00 RBC Hgb Hct RDW Monocytes % PTT (Actin FS) 71.5 H BUN Creatinine Calcium Magnesium Total Protein Albumin - ....Imaging EKG: Image Reviewed (AF) Problem List - Problems (1) Dyspnea Code(s): R06.00 - DYSPNEA, UNSPECIFIED Qualifiers: Dyspnea type: unspecified Qualified Code(s): R06.00 - Dyspnea, unspecified (2) Anxiety Code(s): F41.9 - ANXIETY DISORDER, UNSPECIFIED (3) Hypertension Code(s): I10 - ESSENTIAL (PRIMARY) HYPERTENSION Qualifiers: Hypertension type: essential hypertension Qualified Code(s): I10 - Essential (primary) hypertension (4) Hypomagnesemia Assessment/Plan: keep Mag level 2-2.3 (given 1 g today; will add 2 g now). Code(s): E83.42 - HYPOMAGNESEMIA (5) Hyponatremia Assessment/Plan: now 132-->135-->136; f/u with womens volleyball coach. On IV furosemide. Code(s): E87.1 - HYPO-OSMOLALITY AND HYPONATREMIA (6) Pulmonary hypertension, moderate to severe Code(s): I27.20 - PULMONARY HYPERTENSION, UNSPECIFIED (7) Renal dysfunction Code(s): N28.9 - DISORDER OF KIDNEY AND URETER, UNSPECIFIED (8) Ventral hernia Code(s): K43.9 - VENTRAL HERNIA WITHOUT OBSTRUCTION OR GANGRENE (9) Acute on chronic diastolic (congestive) heart failure Assessment/Plan: Likely exacerbated by ?new-onset AF. Weight gain of over 10 lbs in the past week. Plan: Continue metoprolol ER, hydralazine + isordil. Pt had been on lisinopril 2.5 mg daily at home; restart when cleared by womens volleyball coach. Replete magnesium, and keep 2-2.3. BUN/Cr, electrolytes, daily weight, Is and Os.(pT gained 2 bls since yesterday, but is asymptomatic, and says he has been eating much more in the hospital than at home. F/u over the weekend; as discussed with Dr. Soni, may require bid furosemide if wt gain continues or pt becomes symptomatic. Start IV heparin for AF. Code(s): I50.33 - ACUTE ON CHRONIC DIASTOLIC (CONGESTIVE) HEART FAILURE (10) Stented coronary artery Assessment/Plan: Recent (01/2017) DEStent of LAD. Continue clopidgrel and ASA. On metoprolol ER. Continue atorvastatin 80 mg daily for aggressive lipid control (f/u mild increase in LFTS: ? secondary to "passive congestion" from CHF). Code(s): Z95.5 - PRESENCE OF CORONARY ANGIOPLASTY IMPLANT AND GRAFT (11) GERD (gastroesophageal reflux disease) Assessment/Plan: Agree with pantoprazole (and would discharge pt with this medication, rather than omeprazole). Code(s): K21.9 - GASTRO-ESOPHAGEAL REFLUX DISEASE WITHOUT ESOPHAGITIS (12) Atrial fibrillation, new onset Assessment/Plan: On metoprolol ER; adjust dose (preominately slow VR): will decrease metoprolol from 25 mg to 12.5 mg daily.. Started IV heparin as discussed with Dr. Soni, will start apixaban 2.5 mg bid ( lower dose due to age and Cr level). IV heparin will be discontinued one hour before start of apixaban. ECHO: normal LVEF; moderately dilated LA and RA; moderately severe MR and TR; significant pulmonary HTN. Code(s): I48.91 - UNSPECIFIED ATRIAL FIBRILLATION
--- NOTE | 2017-03-04 17:40 | PN ---
Teaching Attending Note Name of Resident: Belinda Aguirre ATTENDING PHYSICIAN STATEMENT I saw and evaluated the patient. I reviewed the resident's note and discussed the case with the resident. I agree with the resident's findings and plan as documented. SUBJECTIVE: Patient has no complaints. He denies SOB. OBJECTIVE: Vital Signs Period Temp Pulse Resp BP Sys/[place]if[place] Pulse Ox Last 24 Hr 98.7 F-98.9 F 50-67 18-20 100-134/37-55 95-98 HEART: Irregular LUNGS: Clear ABDOMEN: Soft, non-tender, non-distended, normal BS EXTREMITIES: 1+ edema Laboratory Results - last 24 hr 03/03/17 03/03/17 03/03/17 06:32 15:50 18:30 WBC RBC Hgb Hct MCV MCH MCHC RDW Plt Count MPV Neutrophils % Lymphocytes % Monocytes % Eosinophils % Basophils % PTT (Actin FS) 49.4 H D Sodium Potassium Chloride Carbon Dioxide Anion Gap BUN Creatinine Creat Clearance w eGFR Random Glucose Calcium Phosphorus Magnesium Total Bilirubin AST ALT Alkaline Phosphatase Total Protein Albumin Urine Color Straw Urine Appearance Clear Urine pH 5.0 Ur Specific [place] 1.006 Urine Protein Negative Urine Glucose (UA) Negative Urine Ketones Negative Urine Blood Negative Urine Nitrite Negative Urine Bilirubin Negative Urine Urobilinogen Negative Ur Leukocyte Esterase Negative U Random Total Protein Ur Random Sodium Ur Random Potassium Ur Random Chloride Ur Random Urea Nitrogn Urine Creatinine Hepatitis A IgM Ab Negative Hep Bs Antigen Negative Hep B Core IgM Ab Negative Hepatitis C Antibody 0.1 03/03/17 03/03/17 03/03/17 18:30 18:30 18:30 WBC RBC Hgb Hct MCV MCH MCHC RDW Plt Count MPV Neutrophils % Lymphocytes % Monocytes % Eosinophils % Basophils % PTT (Actin FS) Sodium Potassium Chloride Carbon Dioxide Anion Gap BUN Creatinine Creat Clearance w eGFR Random Glucose Calcium Phosphorus Magnesium Total Bilirubin AST ALT Alkaline Phosphatase Total Protein Albumin Urine Color Urine Appearance Urine pH Ur Specific [place] Urine Protein Urine Glucose (UA) Urine Ketones Urine Blood Urine Nitrite Urine Bilirubin Urine Urobilinogen Ur Leukocyte Esterase U Random Total Protein 7 Ur Random Sodium 75 Ur Random Potassium Ur Random Chloride Ur Random Urea Nitrogn Urine Creatinine 32.1 Hepatitis A IgM Ab Hep Bs Antigen Hep B Core IgM Ab Hepatitis C Antibody 03/03/17 03/04/17 03/04/17 23:40 06:15 06:15 WBC 6.6 RBC 2.53 L Hgb 7.8 L Hct 24.0 L MCV 94.9 MCH 31.0 MCHC 32.6 RDW 16.4 H Plt Count 180 MPV 9.4 Neutrophils % 58.8 Lymphocytes % 24.1 D Monocytes % 14.7 H Eosinophils % 1.6 Basophils % 0.8 PTT (Actin FS) 61.4 H Sodium 136 Potassium 3.9 Chloride 101 Carbon Dioxide 25 Anion Gap 10 BUN 50 H Creatinine 1.7 H Creat Clearance w eGFR 38.14 Random Glucose 96 Calcium 7.9 L Phosphorus 3.3 Magnesium 1.5 L D Total Bilirubin 0.8 AST 23 D ALT 63 D Alkaline Phosphatase 75 Total Protein 5.6 L Albumin 2.8 L Urine Color Urine Appearance Urine pH Ur Specific [place] Urine Protein Urine Glucose (UA) Urine Ketones Urine Blood Urine Nitrite Urine Bilirubin Urine Urobilinogen Ur Leukocyte Esterase U Random Total Protein Ur Random Sodium Ur Random Potassium Ur Random Chloride Ur Random Urea Nitrogn Urine Creatinine Hepatitis A IgM Ab Hep Bs Antigen Hep B Core IgM Ab Hepatitis C Antibody 03/04/17 03/04/17 03/04/17 13:20 13:20 13:20 WBC RBC Hgb Hct MCV MCH MCHC RDW Plt Count MPV Neutrophils % Lymphocytes % Monocytes % Eosinophils % Basophils % PTT (Actin FS) Sodium Potassium Chloride Carbon Dioxide Anion Gap BUN Creatinine Creat Clearance w eGFR Random Glucose Calcium Phosphorus Magnesium Total Bilirubin AST ALT Alkaline Phosphatase Total Protein Albumin Urine Color Urine Appearance Urine pH Ur Specific [place] Urine Protein Urine Glucose (UA) Urine Ketones Urine Blood Urine Nitrite Urine Bilirubin Urine Urobilinogen Ur Leukocyte Esterase U Random Total Protein Ur Random Sodium 64 Cancelled Ur Random Potassium 18.0 Ur Random Chloride 78 Ur Random Urea Nitrogn 312 Cancelled Urine Creatinine 41.2 Hepatitis A IgM Ab Hep Bs Antigen Hep B Core IgM Ab Hepatitis C Antibody 03/04/17 13:20 WBC RBC Hgb Hct MCV MCH MCHC RDW Plt Count MPV Neutrophils % Lymphocytes % Monocytes % Eosinophils % Basophils % PTT (Actin FS) Sodium Potassium Chloride Carbon Dioxide Anion Gap BUN Creatinine Creat Clearance w eGFR Random Glucose Calcium Phosphorus Magnesium Total Bilirubin AST ALT Alkaline Phosphatase Total Protein Albumin Urine Color Urine Appearance Urine pH Ur Specific [place] Urine Protein Urine Glucose (UA) Urine Ketones Urine Blood Urine Nitrite Urine Bilirubin Urine Urobilinogen Ur Leukocyte Esterase U Random Total Protein Ur Random Sodium Ur Random Potassium Ur Random Chloride Ur Random Urea Nitrogn Urine Creatinine Cancelled Hepatitis A IgM Ab Hep Bs Antigen Hep B Core IgM Ab Hepatitis C Antibody Current Medications Generic Name Dose Route Start Last Admin Trade Name Freq PRN Reason Stop Dose Admin Aspirin 81 mg 03/03/17 10:00 03/04/17 09:33 Asa - PO 81 mg DAILY RIANNA Administration Atorvastatin Calcium 80 mg 03/03/17 22:00 03/03/17 21:58 Lipitor - PO 80 mg HS RIANNA Administration Clopidogrel Bisulfate 75 mg 03/03/17 10:00 03/04/17 09:33 Plavix - PO 75 mg DAILY RIANNA Administration Docusate Sodium 100 mg 03/02/17 22:00 03/04/17 09:32 Colace - PO 100 mg BID RIANNA Administration Furosemide 40 mg 03/03/17 10:00 03/04/17 09:39 Lasix Injection - IVPUSH 40 mg DAILY RIANNA Administration Heparin Sodium (Porcine) 1,000 unit 03/03/17 12:01 03/03/17 18:08 Heparin - IVPUSH 1,000 unit PRN PRN Administration Heparin Heparin Sodium (Porcine) 5,000 unit 03/03/17 12:01 Heparin - IVPUSH PRN PRN Heparin Hydralazine HCl 50 mg 03/03/17 10:00 03/04/17 09:32 Apresoline - PO 50 mg DAILY RIANNA Administration HEPARIN SOD,P[place] IN 0.45% NACL 25,000 units in 500 mls @ 20 mls/hr 03/03/17 12 :38 03/04/17 14:07 Heparin-1/2ns 25,000 Units/500 IVPB 1,100 units/hr TITR RIANNA 22 mls/hr Protocol Administration 1,000 UNITS/HR Isosorbide Mononitrate 60 mg 03/03/17 10:00 03/04/17 09:33 Imdur - PO 60 mg DAILY RIANNA Administration Metoprolol Succinate 12.5 mg 03/05/17 10:00 Toprol Xl - PO DAILY [facility] Pantoprazole Sodium 20 mg 03/03/17 10:00 03/04/17 09:33 Protonix - PO 20 mg DAILY RIANNA Administration Tamsulosin HCl 0.4 mg 03/03/17 08:30 03/04/17 09:32 Flomax - PO 0.4 mg DAILY@0830 RIANNA Administration Triamcinolone Acetonide 1 applic 03/03/17 10:00 03/04/17 12:54 Aristocort 0.1% Cream - TP Not Given DAILY RIANNA ASSESSMENT AND PLAN: This is an 89 yo man with history of HTN, stage 3 CKD, hyperlipidemia, CAD, stent, chronic diastolic heart failure who presented to the ED with SOB and weight gain. 1. Acute on chronic diastolic heart failure - Improved - Continue Lasix IV, Toprol XL, Hydralazine, Imdur 2. New onset atrial fibrillation - Rate controlled - Continue Toprol XL, heparin IV drip 3. Acute kidney injury, likely cardiorenal syndrome - Creatinine improving with diuresis - Continue to hold lisinopril 4. Stage 3 CKD 5. Hypomagnesmia - Continue to supplement magnesium 6. Hyponatremia - Improved 7. Hepatic transaminitis - Improved - Hep A IgM, HBsAg, HBcAb, HCV Ab negative 8. Anemia, normocytic - No signs of bleeding - Hemoglobin decreasing - continue to monitor and would transfuse if decreases further 9. CAD, history of stent - Continue aspirin, Plavix, Imdur, Lipitor
[2017-03-04] MEDS: APIXABAN 2.5 MG TABLET PO SCH (21:56)
[2017-03-04] MEDS: ATORVASTATIN CA 80 MG TABLET (FP) PO SCH (21:56)
[2017-03-05 08:44] LABS: BASO % 1.2 % (0-2.0); CHLORIDE 100 mmol/L (98-107); HEMATOCRIT 28.2 % (35.4-49); HEMOGLOBIN 9.2 GM/dL (11.7-16.9); LYMPH % 23.2 % (8-40); MCH 30.9 pg (25.7-33.7); MCHC 32.6 g/dl (32.0-35.9); MEAN CELL VOLUME 94.9 fl (80-96); MEAN PLT VOLUME 9.2 fl (7.5-11.1); MONO % 10.4 % (3.8-10.2); NEUT % 63.2 % (42.8-82.8); PLATELET COUNT 213 K/MM3 (134-434); POTASSIUM 4.1 mmol/L (3.5-5.1); RBC 2.97 M/mm3 (4.00-5.60); RDW 16.8 % (11.9-15.9); SODIUM 134 mmol/L (136-145)
[2017-03-05 09:13] LABS: ANION GAP 7 (8-16); BLOOD UREA NITROGEN 42 mg/dL (7-18); CALCIUM 8.3 mg/dL (8.5-10.1); CO2 27 mmol/L (21-32); CREATININE 1.6 mg/dL (0.7-1.3); GLUCOSE,RANDOM 104 mg/dL (74-106); MAGNESIUM 1.8 mg/dL (1.8-2.4); PHOSPHOROUS 3.2 mg/dL (2.5-4.9)
[2017-03-05] MEDS ORDERED: PT OWN MED DRAWER 7, Y5N ONE (09:30)
[2017-03-05] MEDS: DOCUSATE SODIUM 100 MG CAPSULE (FP) PO SCH ×2 (09:38→21:41)
[2017-03-05] MEDS: CLOPIDOGREL BISULFATE 75 MG TABLET (FP) PO SCH (09:38)
[2017-03-05] MEDS: METOPROLOL SUCCINATE 25 MG TAB.SR.24H (FP) PO SCH (09:38)
[2017-03-05] MEDS: FUROSEMIDE 40 MG/4 ML INJECTABLE VIAL IVPUSH SCH (09:38)
[2017-03-05] MEDS: PANTOPRAZOLE 20 MG TABLET (FP) PO SCH (09:39)
[2017-03-05] MEDS: hydrALAZINE HCL 50 MG TABLET (FP) PO SCH (09:39)
[2017-03-05] MEDS: ISOSORBIDE MONONITRATE 60 MG TAB.SR.24H (FP) PO SCH (09:39)
[2017-03-05] MEDS: ASPIRIN 81 MG CHEWABLE TABLETS PO SCH (09:39)
[2017-03-05] MEDS: TRIAMCINOLONE ACET 0.1% CREAM 15 GM TUBE TP SCH (09:39)
[2017-03-05] MEDS: TAMSULOSIN HCL 0.4 MG CAP.ER.24H (FP) PO SCH (09:39)
--- NOTE | 2017-03-05 09:39 | PN ---
Progress Note, Physician History of Present Illness: he patient is an 89 year old male with past medical history of Gout, enlarged prostate, hypertension, and hyperlipidemia, who presents to the emergency department with complaints of SOB. hx CHF, worsening dyspnea on exertion, 13 lb weight gain in 3 weeks, swelling of legs. PMH Condition Date Treating Physician Comments ?esptic shock/dehydration, with transient multiorgan failure, hypotension, bradycardia leading to intubation, atropine, and pressors (see page 1 of note) anxiety/depression ASHD: negative stress MIBI 12/18/10 chronic bilateral leg swelling diastolic CHF hypercholesterolemia large ventral hernia mild anemia pre-syncope (dizzy; held onto wall; denies LOC) truncal obesity ventral hernia PCI [facility]IANA L[facility] 02-02-2017 - Current Medication List Current Medications: Active Medications Apixaban (Eliquis -) 2.5 mg PO BID [facility] Last Admin: 03/04/17 21:56 Dose: 2.5 mg Aspirin (Asa -) 81 mg PO DAILY [facility] Last Admin: 03/04/17 09:33 Dose: 81 mg Atorvastatin Calcium (Lipitor -) 80 mg PO HS [facility] Last Admin: 03/04/17 21:56 Dose: 80 mg Clopidogrel Bisulfate (Plavix -) 75 mg PO DAILY [facility] Last Admin: 03/04/17 09:33 Dose: 75 mg Docusate Sodium (Colace -) 100 mg PO BID [facility] Last Admin: 03/04/17 21:56 Dose: 100 mg Furosemide (Lasix Injection -) 40 mg IVPUSH DAILY [facility] Last Admin: 03/04/17 09:39 Dose: 40 mg Hydralazine HCl (Apresoline -) 50 mg PO DAILY [facility] Last Admin: 03/04/17 09:32 Dose: 50 mg Isosorbide Mononitrate (Imdur -) 60 mg PO DAILY [facility] Last Admin: 03/04/17 09:33 Dose: 60 mg Metoprolol Succinate (Toprol Xl -) 12.5 mg PO DAILY [facility] Pantoprazole Sodium (Protonix -) 20 mg PO DAILY [facility] Last Admin: 03/04/17 09:33 Dose: 20 mg Tamsulosin HCl (Flomax -) 0.4 mg PO DAILY@0830 [facility] Last Admin: 03/04/17 09:32 Dose: 0.4 mg Triamcinolone Acetonide (Aristocort 0.1% Cream -) 1 applic TP DAILY [facility] Last Admin: 03/04/17 12:54 Dose: Not Given - Objective Vital Signs: Vital Signs Temperature 98.1 F 03/05/17 06:00 Pulse Rate 59 L 03/05/17 06:00 Respiratory Rate 03/05/17 08:25 Blood Pressure 126/59 03/05/17 06:00 O2 Sat by Pulse Oximetry (%) 98 03/05/17 08:25 Eyes: Yes: WNL, Conjunctiva Clear, EOM Intact HENT: Yes: WNL, Atraumatic, Normocephalic Neck: Yes: WNL, Supple, Trachea Midline Cardiovascular: Yes: Pulse Irregular, S1, S2 Respiratory: Yes: WNL, Regular, CTA Bilaterally Gastrointestinal: Yes: WNL, Normal Bowel Sounds Genitourinary: Yes: WNL Musculoskeletal: Yes: WNL Extremities: Yes: WNL Edema: No Integumentary: Yes: WNL Neurological: Yes: WNL, Alert, Oriented ...Motor Strength: WNL Psychiatric: Yes: WNL Labs: CBC, BMP 03/05/17 07:09 03/05/17 07:09 INR, PTT INR 1.40 (0.82-1.09) H 03/03/17 06:32 Problem List - Problems (1) Dyspnea Code(s): R06.00 - DYSPNEA, UNSPECIFIED Qualifiers: Dyspnea type: unspecified Qualified Code(s): R06.00 - Dyspnea, unspecified (2) Anxiety Code(s): F41.9 - ANXIETY DISORDER, UNSPECIFIED (3) Bradycardia Code(s): R00.1 - BRADYCARDIA, UNSPECIFIED (4) Chest pain Code(s): R07.9 - CHEST PAIN, UNSPECIFIED Qualifiers: Chest pain type: unspecified Qualified Code(s): R07.9 - Chest pain, unspecified (5) Diastolic CHF Code(s): I50.30 - UNSPECIFIED DIASTOLIC (CONGESTIVE) HEART FAILURE Qualifiers: Congestive heart failure chronicity: acute on chronic Qualified Code(s): I50.33 - Acute on chronic diastolic (congestive) heart failure (6) Hypertension Code(s): I10 - ESSENTIAL (PRIMARY) HYPERTENSION Qualifiers: Hypertension type: essential hypertension Qualified Code(s): I10 - Essential (primary) hypertension (7) Hypomagnesemia Code(s): E83.42 - HYPOMAGNESEMIA (8) Hyponatremia Code(s): E87.1 - HYPO-OSMOLALITY AND HYPONATREMIA (9) Pulmonary hypertension, moderate to severe Code(s): I27.20 - PULMONARY HYPERTENSION, UNSPECIFIED (10) Renal dysfunction Code(s): N28.9 - DISORDER OF KIDNEY AND URETER, UNSPECIFIED (11) Ventral hernia Code(s): K43.9 - VENTRAL HERNIA WITHOUT OBSTRUCTION OR GANGRENE Assessment/Plan - Problems (1) Dyspnea Code(s): R06.00 - DYSPNEA, UNSPECIFIED Qualifiers: Dyspnea type: unspecified Qualified Code(s): R06.00 - Dyspnea, unspecified (2) Anxiety Code(s): F41.9 - ANXIETY DISORDER, UNSPECIFIED (3) Hypertension Code(s): I10 - ESSENTIAL (PRIMARY) HYPERTENSION Qualifiers: Hypertension type: essential hypertension Qualified Code(s): I10 - Essential (primary) hypertension (4) Hypomagnesemia Assessment/Plan: keep Mag level 2-2.3 (given 1 g today; will add 2 g now). Code(s): E83.42 - HYPOMAGNESEMIA (5) Hyponatremia Assessment/Plan: now 132-->135-->136; f/u with chief writer. On IV furosemide. Code(s): E87.1 - HYPO-OSMOLALITY AND HYPONATREMIA (6) Pulmonary hypertension, moderate to severe Code(s): I27.20 - PULMONARY HYPERTENSION, UNSPECIFIED (7) Renal dysfunction Code(s): N28.9 - DISORDER OF KIDNEY AND URETER, UNSPECIFIED (8) Ventral hernia Code(s): K43.9 - VENTRAL HERNIA WITHOUT OBSTRUCTION OR GANGRENE (9) Acute on chronic diastolic (congestive) heart failure Assessment/Plan: Likely exacerbated by ?new-onset AF. Weight gain of over 10 lbs in the past week. Plan: Continue metoprolol ER, hydralazine + isordil. Pt had been on lisinopril 2.5 mg daily at home; restart when cleared by chief writer. Replete magnesium, and keep 2-2.3. BUN/Cr, electrolytes, daily weight, Is and Os.(pT gained 2 bls since yesterday, but is asymptomatic, and says he has been eating much more in the hospital than at home. F/u over the weekend; as discussed with Dr. oSni, may require bid furosemide if wt gain continues or pt becomes symptomatic. Start IV heparin for AF. Code(s): I50.33 - ACUTE ON CHRONIC DIASTOLIC (CONGESTIVE) HEART FAILURE (10) Stented coronary artery Assessment/Plan: Recent (01/2017) DEStent of LAD. Continue clopidgrel and ASA. On metoprolol ER. Continue atorvastatin 80 mg daily for aggressive lipid control (f/u mild increase in LFTS: ? secondary to "passive congestion" from CHF). Code(s): Z95.5 - PRESENCE OF CORONARY ANGIOPLASTY IMPLANT AND GRAFT (11) GERD (gastroesophageal reflux disease) Assessment/Plan: Agree with pantoprazole (and would discharge pt with this medication, rather than omeprazole). Code(s): K21.9 - GASTRO-ESOPHAGEAL REFLUX DISEASE WITHOUT ESOPHAGITIS (12) Atrial fibrillation, new onset Assessment/Plan: On metoprolol ER; adjust dose (preominately slow VR): will decrease metoprolol from 25 mg to 12.5 mg daily.. Started IV heparin as discussed with Dr. Soni, will start apixaban 2.5 mg bid ( lower dose due to age and Cr level). IV heparin will be discontinued one hour before start of apixaban. ECHO: normal LVEF; moderately dilated LA and RA; moderately severe MR and TR; significant pulmonary HTN. Code(s): I48.91 - UNSPECIFIED ATRIAL FIBRILLATION
[2017-03-05] MEDS ORDERED: METOPROLOL SUCCINATE 25 MG TAB.SR.24H (FP) PO SCH (10:00)
[2017-03-05] MEDS: APIXABAN 2.5 MG TABLET PO SCH ×2 (10:00→21:41)
--- NOTE | 2017-03-05 11:24 | PN ---
Progress Note (short form) - Note Progress Note: Renal Follow up for BERT Pt seen and examined at the bedside no acute complaints no sob, chest pain, abd pain Legs remain swollen Vital Signs Temperature 97.9 F 03/05/17 10:00 Pulse Rate 65 03/05/17 10:00 Respiratory Rate 03/05/17 10:00 Blood Pressure 119/61 03/05/17 10:00 O2 Sat by Pulse Oximetry (%) 98 03/05/17 08:25 Intake & Output 03/02/17 03/03/17 03/04/17 03/05/17 23:59 23:59 23:59 23:59 Intake Total 360 1074 Output Total 900 925 300 Balance -540 149 -300 Weight 73.936 kg 73.936 kg 74.298 kg NAD irregular CTA + edema extending to mid arriola CBC, BMP 03/05/17 07:09 03/05/17 07:09 Laboratory Tests 03/04/17 03/05/17 03/05/17 06:15 07:09 07:09 Calcium 8.3 L Phosphorus 3.2 Magnesium 1.8 Iron Pending TIBC Pending Iron Saturation Pending Albumin 2.8 L Current Medications Apixaban (Eliquis -) 2.5 mg PO BID [facility] Last Admin: 03/05/17 10:00 Dose: 2.5 mg Aspirin (Asa -) 81 mg PO DAILY [facility] Last Admin: 03/05/17 09:39 Dose: 81 mg Atorvastatin Calcium (Lipitor -) 80 mg PO HS [facility] Last Admin: 03/04/17 21:56 Dose: 80 mg Clopidogrel Bisulfate (Plavix -) 75 mg PO DAILY [facility] Last Admin: 03/05/17 09:38 Dose: 75 mg Docusate Sodium (Colace -) 100 mg PO BID [facility] Last Admin: 03/05/17 09:38 Dose: 100 mg Furosemide (Lasix Injection -) 40 mg IVPUSH BID@0600,1400 [facility] Hydralazine HCl (Apresoline -) 50 mg PO DAILY [facility] Last Admin: 03/05/17 09:39 Dose: 50 mg Isosorbide Mononitrate (Imdur -) 60 mg PO DAILY [facility] Last Admin: 03/05/17 09:39 Dose: 60 mg Metoprolol Succinate (Toprol Xl -) 12.5 mg PO DAILY [facility] Last Admin: 03/05/17 09:38 Dose: 12.5 mg Pantoprazole Sodium (Protonix -) 20 mg PO DAILY [facility] Last Admin: 03/05/17 09:39 Dose: 20 mg Tamsulosin HCl (Flomax -) 0.4 mg PO DAILY@0830 [facility] Last Admin: 03/05/17 09:39 Dose: 0.4 mg Triamcinolone Acetonide (Aristocort 0.1% Cream -) 1 applic TP DAILY [facility] Last Admin: 03/05/17 09:39 Dose: Not Given 89 year old gentleman with PMhx of CAD s/p recent cardiac stent, CHF, Hyperlipidemia, BPH, Gout who presented with complaints of SOB, worsening LE edema and found to have acute HF and BERT. #Acute Renal Failure in setting of CHF/total body volume overload Renal function improving with diuretics and thus pt has Cardio-Renal Syndrome Weights remain unchanged, will increase Lasix to BID Trend daily weights and BUN/Cr Low salt diet limit total fluid intake daily #Anemia Iron studies collected, results pending no acute indication for transfusion Luiz Soni DO
--- NOTE | 2017-03-05 11:43 | PN ---
Progress Note (short form) - Note Progress Note: c/o cough but has improved. was able to ambulate further than yesterday. denies CP, SOB, fever, chills, N/V/C/d, orthopnea Current Medications Generic Name Dose Route Start Last Admin Trade Name Alicia PRN Reason Stop Dose Admin Apixaban 2.5 mg 03/04/17 22:00 03/05/17 10:00 Eliquis - PO 2.5 mg BID RIANNA Administration Aspirin 81 mg 03/03/17 10:00 03/05/17 09:39 Asa - PO 81 mg DAILY [facility]NA Administration Atorvastatin Calcium 80 mg 03/03/17 22:00 03/04/17 21:56 Lipitor - PO 80 mg HS RIANNA Administration Clopidogrel Bisulfate 75 mg 03/03/17 10:00 03/05/17 09:38 Plavix - PO 75 mg DAILY R[facility]NA Administration Docusate Sodium 100 mg 03/02/17 22:00 03/05/17 09:38 Colace - PO 100 mg BID RIANNA Administration Furosemide 40 mg 03/05/17 14:00 Lasix Injection - IVPUSH BID@0600,1400 [facility] Hydralazine HCl 50 mg 03/03/17 10:00 03/05/17 09:39 Apresoline - PO 50 mg DAILY R[facility]NA Administration Isosorbide Mononitrate 60 mg 03/03/17 10:00 03/05/17 09:39 Imdur - PO 60 mg DAILY R[facility]NA Administration Magnesium Chloride 64 mg 03/05/17 11:30 Slow-Mag - PO DAILY [facility] Metoprolol Succinate 12.5 mg 03/05/17 10:00 03/05/17 09:38 Toprol Xl - PO 12.5 mg DAILY RIANNA Administration Pantoprazole Sodium 20 mg 03/03/17 10:00 03/05/17 09:39 Protonix - PO 20 mg DAILY [facility]NA Administration Tamsulosin HCl 0.4 mg 03/03/17 08:30 03/05/17 09:39 Flomax - PO 0.4 mg DAILY@0830 [facility] Administration Triamcinolone Acetonide 1 applic 03/03/17 10:00 03/05/17 09:39 Aristocort 0.1% Cream - TP Not Given DAILY [facility] Last Vital Signs Temp Pulse Resp BP Pulse Ox 97.9 F 65 18 119/61 98 03/05/17 10:00 03/05/17 10:00 03/05/17 10:00 03/05/17 10:00 03/05/17 08:25 Intake & Output 03/02/17 03/03/17 03/04/17 03/05/17 23:59 23:59 23:59 23:59 Intake Total 360 1074 Output Total 900 925 300 Balance -540 149 -300 Weight 163 lb 163 lb 163 lb 12.8 oz General NAD CV S1 S2 irregular Lungs CTA B/L no wheezing/rales/rhonchi abdomen soft +distended +umbilical hernia extremities 1+ pitting edema CBCD WBC 6.0 K/mm3 (4.0-10.0) 03/05/17 07:09 RBC 2.97 M/mm3 (4.00-5.60) L 03/05/17 07:09 Hgb 9.2 GM/dL (11.7-16.9) L D 03/05/17 07:09 Hct 28.2 % (35.4-49) L D 03/05/17 07:09 MCV 94.9 fl (80-96) 03/05/17 07:09 MCHC 32.6 g/dl (32.0-35.9) 03/05/17 07:09 RDW 16.8 % (11.9-15.9) H 03/05/17 07:09 Plt Count 213 K/MM3 (134-434) 03/05/17 07:09 MPV 9.2 fl (7.5-11.1) 03/05/17 07:09 CMP Sodium 134 mmol/L (136-145) L 03/05/17 07:09 Potassium 4.1 mmol/L (3.5-5.1) 03/05/17 07:09 Chloride 100 mmol/L (98-107) 03/05/17 07:09 Carbon Dioxide 27 mmol/L (21-32) 03/05/17 07:09 Anion Gap 7 (8-16) L 03/05/17 07:09 BUN 42 mg/dL (7-18) H 03/05/17 07:09 Creatinine 1.6 mg/dL (0.7-1.3) H 03/05/17 07:09 Creat Clearance w eGFR 38.14 (>60) 03/04/17 06:15 Calcium 8.3 mg/dL (8.5-10.1) L 03/05/17 07:09 Total Bilirubin 0.8 mg/dL (0.2-1.0) 03/04/17 06:15 AST 23 U/L (15-37) D 03/04/17 06:15 ALT 63 U/L (12-78) D 03/04/17 06:15 Alkaline Phosphatase 75 U/L (45-117) 03/04/17 06:15 Total Protein 5.6 g/dl (6.4-8.2) L 03/04/17 06:15 Albumin 2.8 g/dl (3.4-5.0) L 03/04/17 06:15 ASSESSMENT AND PLAN: 89yo M with PMH HTn, CKD, dyslipidemia, CAD s/p recent stent, diastoic CHF presented with dyspnea and weight gain 1. acute on chronic diastolic CHF-not responding well to diuresis. lasix increased to 40mg BID IV. conint clinically improved. dry weight 150 per pt. cont lasix 40mg IV daily, monitor electrolytes. echo reviewed. cont metoprolol 2. New onset afib- rate controlled. now on dose adjusted eliqiuis. tolerating well. cardio on board. 3. BERT- likely pre-renal. improved with diuresis. hold acei. nephrology on board 4. CAD s/p recent stent- stent placed recently. on asa/plavix. will need to confirm with cards about continuoing triple therapy. 5. hypomagnesmia- resolved 6. hyponatremia- due to CHF. resolved 7. Transaminitis- due to hepatic congestion.resolved. hepatitis panel pending. u /s with borderline hepatomegaly. 8. normocytic anemia- slight drop in Hgb the other day now improving. iron studiues pending. no signs of bleeding. no indication for txn 9. DVT ppx- eliquis 10. spoke with and children about plan. answered all questions, verbalized understanding and agreement with plan Visit type - Emergency Visit Emergency Visit: Yes ED Registration Date: 03/02/17 Care time: The patient presented to the Emergency Department on the above date and was hospitalized for further evaluation of their emergent condition. - New Patient This patient is new to me today: No - Critical Care Critical Care patient: No - Discharge Referral Referred to [facility] Med [facility] No
[2017-03-05] MEDS ORDERED: FUROSEMIDE 40 MG/4 ML INJECTABLE VIAL IVPUSH SCH (14:00)
[2017-03-05] MEDS: MAGNESIUM CL 64 MG TABLET.SA PO SCH (15:22)
--- NOTE | 2017-03-05 17:18 | EKG ---
Test Reason : Blood Pressure : / mmHG Vent. Rate : 057 BPM Atrial Rate : 046 BPM P-R Int : 000 ms QRS Dur : 098 ms QT Int : 442 ms P-R-T Axes : 000 042 115 degrees QTc Int : 430 ms ATRIAL FIBRILLATION WITH SLOW VENTRICULAR RESPONSE NONSPECIFIC T WAVE ABNORMALITY ABNORMAL ECG WHEN COMPARED WITH ECG OF 03-MAR-2017 00:26, NO SIGNIFICANT CHANGE WAS FOUND Confirmed by JUD CHEEMA MD ([id number]) on 03/05/2017 5:18:10 PM Referred By: Confirmed By:JUD CHEEMA MD
[2017-03-05] MEDS ORDERED: FUROSEMIDE 40 MG/4 ML INJECTABLE VIAL IVPUSH ONE (18:00)
[2017-03-05] MEDS: ATORVASTATIN CA 80 MG TABLET (FP) PO SCH (21:41)
[2017-03-06] MEDS: FUROSEMIDE 40 MG/4 ML INJECTABLE VIAL IVPUSH SCH ×2 (05:59→15:09)
[2017-03-06 06:36] LABS: SERUM IRON SATURATION 9 % (15-55); TOTAL IRON BINDING CAPACITY 272 ug/dL (250-450); UIBC 247 ug/dL (111-343)
[2017-03-06 07:23] LABS: BASO % 1.1 % (0-2.0); EOS % 3.3 % (0-4.5); HEMATOCRIT 26.5 % (35.4-49); HEMOGLOBIN 8.8 GM/dL (11.7-16.9); LYMPH % 22.7 % (8-40); MCH 31.5 pg (25.7-33.7); MCHC 33.2 g/dl (32.0-35.9); MEAN CELL VOLUME 94.8 fl (80-96); MONO % 10.5 % (3.8-10.2); NEUT % 62.4 % (42.8-82.8); PLATELET COUNT 215 K/MM3 (134-434); RDW 16.4 % (11.9-15.9); WHITE BLOOD COUNT 4.7 K/mm3 (4.0-10.0)
[2017-03-06 07:55] LABS: ANION GAP 8 (8-16); BLOOD UREA NITROGEN 39 mg/dL (7-18); CALCIUM 9.3 mg/dL (8.5-10.1); CHLORIDE 99 mmol/L (98-107); CO2 32 mmol/L (21-32); CREATININE 1.6 mg/dL (0.7-1.3); GLUCOSE,RANDOM 92 mg/dL (74-106); MAGNESIUM 1.4 mg/dL (1.8-2.4); PHOSPHOROUS 3.4 mg/dL (2.5-4.9); SODIUM 139 mmol/L (136-145)
--- NOTE | 2017-03-06 07:55 | PN ---
Physical Exam: SUBJECTIVE: Patient seen and examined by me at bedside. Patient offers no complaints but is concerned about holding his blood pressure medication Lisinopril and I explained to him that it may further harm is acute kidney injury. Otherwise, patient is walking around and denies any fever, chills, nausea, vomiting, abdominal pain, chest pain, palpitations, shortness of breath , headache, dizziness, dysuria, frequency. OBJECTIVE: Vital Signs Period Temp Pulse Resp BP Sys/Clifton Pulse Ox Last 24 Hr 97.8 F-99.2 F 55-80 18-20 114-134/51-61 98-98 GENERAL: The patient is awake, alert, and fully oriented, in no acute distress. LUNGS: CTAB. HEART: Irregularly irregular, with regulat rate, +S1/S2. ABDOMEN: Soft, nontender, nondistended, no guarding. EXTREMITIES: Warm, well-perfused. 1+ jessa pitting edema. PSYCH: Normal mood, normal affect. SKIN: Warm, dry, normal turgor, no rashes or lesions noted Laboratory Results - last 24 hr 03/05/17 03/05/17 03/05/17 07:09 07:09 07:09 WBC 6.0 RBC 2.97 L Hgb 9.2 L D Hct 28.2 L D MCV 94.9 MCH 30.9 MCHC 32.6 RDW 16.8 H Plt Count 213 MPV 9.2 Neutrophils % 63.2 Lymphocytes % 23.2 Monocytes % 10.4 H Eosinophils % 2.0 Basophils % 1.2 PTT (Actin FS) 30.5 D Sodium 134 L Potassium 4.1 Chloride 100 Carbon Dioxide 27 Anion Gap 7 L BUN 42 H Creatinine 1.6 H Random Glucose 104 Calcium 8.3 L Phosphorus 3.2 Magnesium 1.8 Iron TIBC Iron Saturation Ferritin 57.565 03/05/17 03/06/17 07:09 05:05 WBC RBC Hgb Hct MCV MCH MCHC RDW Plt Count MPV Neutrophils % Lymphocytes % Monocytes % Eosinophils % Basophils % PTT (Actin FS) 31.8 Sodium Potassium Chloride Carbon Dioxide Anion Gap BUN Creatinine Random Glucose Calcium Phosphorus Magnesium Iron 25 L TIBC 272 Iron Saturation 9 L Ferritin Active Medications Generic Name Dose Route Start Last Admin Trade Name Freq PRN Reason Stop Dose Admin Apixaban 2.5 mg 03/04/17 22:00 03/05/17 21:41 Eliquis - PO 2.5 mg BID RIANNA Administration Aspirin 81 mg 03/03/17 10:00 03/05/17 09:39 Asa - PO 81 mg DAILY R[facility]NA Administration Atorvastatin Calcium 80 mg 03/03/17 22:00 03/05/17 21:41 Lipitor - PO 80 mg HS RIANNA Administration Clopidogrel Bisulfate 75 mg 03/03/17 10:00 03/05/17 09:38 Plavix - PO 75 mg DAILY R[facility]NA Administration Docusate Sodium 100 mg 03/02/17 22:00 03/05/17 21:41 Colace - PO 100 mg BID R[facility]NA Administration Furosemide 40 mg 03/06/17 06:00 03/06/17 05:59 Lasix Injection - IVPUSH 40 mg BID@0600,1400 RIANNA Administration Hydralazine HCl 50 mg 03/03/17 10:00 03/05/17 09:39 Apresoline - PO 50 mg DAILY [facility] Administration Isosorbide Mononitrate 60 mg 03/03/17 10:00 03/05/17 09:39 Imdur - PO 60 mg DAILY [facility] Administration Magnesium Chloride 64 mg 03/05/17 12:45 03/05/17 15:22 Slow-Mag - PO 64 mg DAILY [facility]NA Administration Metoprolol Succinate 12.5 mg 03/05/17 10:00 03/05/17 09:38 Toprol Xl - PO 12.5 mg DAILY [facility] Administration Pantoprazole Sodium 20 mg 03/03/17 10:00 03/05/17 09:39 Protonix - PO 20 mg DAILY [facility] Administration Tamsulosin HCl 0.4 mg 03/03/17 08:30 03/05/17 09:39 Flomax - PO 0.4 mg DAILY@0830 R[facility]NA Administration Triamcinolone Acetonide 1 applic 03/03/17 10:00 03/05/17 09:39 Aristocort 0.1% Cream - TP Not Given DAILY [facility] ASSESSMENT/PLAN: 89M with PMH of htn, CKD, hld, CAD s/p recent stent, Diastolic CHF, presented with dyspnea and reported wt gain x 3 weeks. Acute on chronic exacerbation of Diastolic CHF - likely exacerbated by new onset afib - Patient was not responding well to Lasix so it was increased to Lasix 40mg BID with appropriate response. Patient lost 6 pounds. Will continue Lasix 40mg BID - most recent Echo 10/2015 -> Normal LV function, EF 75%. Biatrial dilatation. Moderate MR, severe TR, mild/moderate [place]. - continue Metoprolol - strict I&O's - daily weights with dry weight 153lb. Lost 6 pounds in 24 hours New Onset A.Fib - rated controlled - Continue Eliquis 2.5mg BID BERT in setting of HF and volume overload - improving with IV Lasix - Nephrology (Dr. Soni) recs appreciated: keep K ~4, Mg > 2, renally dose medications, avoid NSAIDs, hold ACEi for now CAD - recent stent of LAD 01/2017 - continue Plavix and ASA - Patient also takes Eliquis. Will need to confirm with cardiology if patient is really on triple AC therapy - continue Lipitor Normocytic Anemia - hgb at baseline and stable - transfuse hgb < 7 - no overt signs of bleeding - continue to monitor CBC Transaminits - likely 2/2 hepatic congestion - resolved - hepatitis panel (-) -Continue to monitor Hypomagnesemia -1.4 today -Magnesium 800mg PO given -Continue to monitor BPH -Continue Flomax 0.4mg daily HTN -Continue Hydralazine, Imdur, and Metoprolol F/E/N - Fluids: po - Electrolytes: hypomag. Replete and repeat - Nutrition: low sodium diet Prophylaxis - DVT ppx with Eliquis 2.5mg BID - GI ppx with Protonix - deconditioning ppx with PT Visit type - Emergency Visit Emergency Visit: Yes ED Registration Date: 03/02/17 Care time: The patient presented to the Emergency Department on the above date and was hospitalized for further evaluation of their emergent condition. - New Patient This patient is new to me today: Yes Date on this admission: 03/06/17 - Critical Care Critical Care patient: No
--- NOTE | 2017-03-06 08:38 | PN ---
Progress Note, Physician History of Present Illness: he patient is an 89 year old male with past medical history of Gout, enlarged prostate, hypertension, and hyperlipidemia, who presents to the emergency department with complaints of SOB. hx CHF, worsening dyspnea on exertion, 13 lb weight gain in 3 weeks, swelling of legs. PMH Condition Date Treating Physician Comments ?esptic shock/dehydration, with transient multiorgan failure, hypotension, bradycardia leading to intubation, atropine, and pressors (see page 1 of note) anxiety/depression ASHD: negative stress MIBI 12/18/10 chronic bilateral leg swelling diastolic CHF hypercholesterolemia large ventral hernia mild anemia pre-syncope (dizzy; held onto wall; denies LOC) truncal obesity ventral hernia PCI ILIANA LAD [facility] 02-02-2017 - Current Medication List Current Medications: Active Medications Apixaban (Eliquis -) 2.5 mg PO BID [facility] Last Admin: 03/05/17 21:41 Dose: 2.5 mg Aspirin (Asa -) 81 mg PO DAILY [facility] Last Admin: 03/05/17 09:39 Dose: 81 mg Atorvastatin Calcium (Lipitor -) 80 mg PO HS [facility] Last Admin: 03/05/17 21:41 Dose: 80 mg Clopidogrel Bisulfate (Plavix -) 75 mg PO DAILY [facility] Last Admin: 03/05/17 09:38 Dose: 75 mg Docusate Sodium (Colace -) 100 mg PO BID [facility] Last Admin: 03/05/17 21:41 Dose: 100 mg Furosemide (Lasix Injection -) 40 mg IVPUSH BID@0600,1400 [facility] Last Admin: 03/06/17 05:59 Dose: 40 mg Hydralazine HCl (Apresoline -) 50 mg PO DAILY [facility] Last Admin: 03/05/17 09:39 Dose: 50 mg Isosorbide Mononitrate (Imdur -) 60 mg PO DAILY [facility] Last Admin: 03/05/17 09:39 Dose: 60 mg Magnesium Chloride (Slow-Mag -) 64 mg PO DAILY [facility] Last Admin: 03/05/17 15:22 Dose: 64 mg Metoprolol Succinate (Toprol Xl -) 12.5 mg PO DAILY [facility] Last Admin: 03/05/17 09:38 Dose: 12.5 mg Pantoprazole Sodium (Protonix -) 20 mg PO DAILY [facility] Last Admin: 03/05/17 09:39 Dose: 20 mg Tamsulosin HCl (Flomax -) 0.4 mg PO DAILY@0830 [facility] Last Admin: 03/05/17 09:39 Dose: 0.4 mg Triamcinolone Acetonide (Aristocort 0.1% Cream -) 1 applic TP DAILY [facility] Last Admin: 03/05/17 09:39 Dose: Not Given - Objective Vital Signs: Vital Signs Temperature 99.2 F 03/06/17 06:00 Pulse Rate 71 03/06/17 06:00 Respiratory Rate 20 03/06/17 06:00 Blood Pressure 134/58 03/06/17 06:00 O2 Sat by Pulse Oximetry (%) 98 03/05/17 21:00 Eyes: Yes: WNL, Conjunctiva Clear, EOM Intact HENT: Yes: WNL, Atraumatic, Normocephalic Neck: Yes: WNL, Supple, Trachea Midline Cardiovascular: Yes: Pulse Irregular, Murmur, S1, S2 Respiratory: Yes: WNL, Regular, CTA Bilaterally Gastrointestinal: Yes: WNL, Normal Bowel Sounds Genitourinary: Yes: WNL Musculoskeletal: Yes: WNL Edema: Yes Integumentary: Yes: WNL Neurological: Yes: WNL, Alert, Oriented ...Motor Strength: WNL Psychiatric: Yes: WNL Labs: CBC, BMP 03/06/17 05:05 03/06/17 05:05 INR, PTT INR 1.40 (0.82-1.09) H 03/03/17 06:32 Problem List - Problems (1) Dyspnea Code(s): R06.00 - DYSPNEA, UNSPECIFIED Qualifiers: Dyspnea type: unspecified Qualified Code(s): R06.00 - Dyspnea, unspecified (2) Anxiety Code(s): F41.9 - ANXIETY DISORDER, UNSPECIFIED (3) Bradycardia Code(s): R00.1 - BRADYCARDIA, UNSPECIFIED (4) Chest pain Code(s): R07.9 - CHEST PAIN, UNSPECIFIED Qualifiers: Chest pain type: unspecified Qualified Code(s): R07.9 - Chest pain, unspecified (5) Diastolic CHF Code(s): I50.30 - UNSPECIFIED DIASTOLIC (CONGESTIVE) HEART FAILURE Qualifiers: Congestive heart failure chronicity: acute on chronic Qualified Code(s): I50.33 - Acute on chronic diastolic (congestive) heart failure (6) Hypertension Code(s): I10 - ESSENTIAL (PRIMARY) HYPERTENSION Qualifiers: Hypertension type: essential hypertension Qualified Code(s): I10 - Essential (primary) hypertension (7) Hypomagnesemia Code(s): E83.42 - HYPOMAGNESEMIA (8) Hyponatremia Code(s): E87.1 - HYPO-OSMOLALITY AND HYPONATREMIA (9) Pulmonary hypertension, moderate to severe Code(s): I27.20 - PULMONARY HYPERTENSION, UNSPECIFIED (10) Renal dysfunction Code(s): N28.9 - DISORDER OF KIDNEY AND URETER, UNSPECIFIED (11) Ventral hernia Code(s): K43.9 - VENTRAL HERNIA WITHOUT OBSTRUCTION OR GANGRENE Assessment/Plan - Problems (1) Dyspnea Code(s): R06.00 - DYSPNEA, UNSPECIFIED Qualifiers: Dyspnea type: unspecified Qualified Code(s): R06.00 - Dyspnea, unspecified (2) Anxiety Code(s): F41.9 - ANXIETY DISORDER, UNSPECIFIED (3) Hypertension Code(s): I10 - ESSENTIAL (PRIMARY) HYPERTENSION Qualifiers: Hypertension type: essential hypertension Qualified Code(s): I10 - Essential (primary) hypertension (4) Hypomagnesemia Assessment/Plan: keep Mag level 2-2.3 (given 1 g today; will add 2 g now). Code(s): E83.42 - HYPOMAGNESEMIA (5) Hyponatremia Assessment/Plan: now 132-->135-->136; f/u with medical lab specialist. On IV furosemide. Code(s): E87.1 - HYPO-OSMOLALITY AND HYPONATREMIA (6) Pulmonary hypertension, moderate to severe Code(s): I27.20 - PULMONARY HYPERTENSION, UNSPECIFIED (7) Renal dysfunction Code(s): N28.9 - DISORDER OF KIDNEY AND URETER, UNSPECIFIED (8) Ventral hernia Code(s): K43.9 - VENTRAL HERNIA WITHOUT OBSTRUCTION OR GANGRENE (9) Acute on chronic diastolic (congestive) heart failure Assessment/Plan: Likely exacerbated by ?new-onset AF. Weight gain of over 10 lbs in the past week. Plan: Continue metoprolol ER, hydralazine + isordil. Pt had been on lisinopril 2.5 mg daily at home; restart when cleared by medical lab specialist. Replete magnesium, and keep 2-2.3. BUN/Cr, electrolytes, daily weight, Is and Os.(pT gained 2 bls since yesterday, but is asymptomatic, and says he has been eating much more in the hospital than at home. F/u over the weekend; as discussed with Dr. Soni, may require bid furosemide if wt gain continues or pt becomes symptomatic. Improving with diuresis Code(s): I50.33 - ACUTE ON CHRONIC DIASTOLIC (CONGESTIVE) HEART FAILURE (10) Stented coronary artery Assessment/Plan: Recent (01/2017) DEStent of LAD. Continue clopidgrel and ASA. On metoprolol ER. Continue atorvastatin 80 mg daily for aggressive lipid control (f/u mild increase in LFTS: ? secondary to "passive congestion" from CHF). Code(s): Z95.5 - PRESENCE OF CORONARY ANGIOPLASTY IMPLANT AND GRAFT (11) GERD (gastroesophageal reflux disease) Assessment/Plan: Agree with pantoprazole (and would discharge pt with this medication, rather than omeprazole). Code(s): K21.9 - GASTRO-ESOPHAGEAL REFLUX DISEASE WITHOUT ESOPHAGITIS (12) Atrial fibrillation, new onset Assessment/Plan: On metoprolol ER; adjust dose (preominately slow VR): will decrease metoprolol from 25 mg to 12.5 mg daily.. Started IV heparin as discussed with Dr. Soni, will start apixaban 2.5 mg bid ( lower dose due to age and Cr level). IV heparin will be discontinued one hour before start of apixaban. ECHO: normal LVEF; moderately dilated LA and RA; moderately severe MR and TR; significant pulmonary HTN. Code(s): I48.91 - UNSPECIFIED ATRIAL FIBRILLATION
--- NOTE | 2017-03-06 08:46 | PN ---
Progress Note (short form) - Note Progress Note: Renal Follow up for BERT Pt seen and examined at the bedside no acute complaints no sob, chest pain, abd pain, N/V making a lot of urine no dizziness Vital Signs Temperature 99.2 F 03/06/17 06:00 Pulse Rate 71 03/06/17 06:00 Respiratory Rate 20 03/06/17 06:00 Blood Pressure 134/58 03/06/17 06:00 O2 Sat by Pulse Oximetry (%) 98 03/05/17 21:00 Intake & Output 03/03/17 03/04/17 03/05/17 03/06/17 23:59 23:59 23:59 23:59 Intake Total 360 1074 1020 10 Output Total 433 738 7484 350 Balance -540 149 -1730 -340 Weight 73.936 kg 74.298 kg 71.305 kg NAD irregular CTA + edema extending to mid arriola CBC, BMP 03/06/17 05:05 03/06/17 05:05 Laboratory Tests 03/05/17 03/06/17 07:09 05:05 Calcium 9.3 Phosphorus 3.4 Magnesium 1.4 L D Iron 25 L TIBC 272 Iron Saturation 9 L Current Medications Apixaban (Eliquis -) 2.5 mg PO BID [facility] Last Admin: 03/05/17 21:41 Dose: 2.5 mg Aspirin (Asa -) 81 mg PO DAILY [facility] Last Admin: 03/05/17 09:39 Dose: 81 mg Atorvastatin Calcium (Lipitor -) 80 mg PO HS [facility] Last Admin: 03/05/17 21:41 Dose: 80 mg Clopidogrel Bisulfate (Plavix -) 75 mg PO DAILY [facility] Last Admin: 03/05/17 09:38 Dose: 75 mg Docusate Sodium (Colace -) 100 mg PO BID [facility] Last Admin: 03/05/17 21:41 Dose: 100 mg Furosemide (Lasix Injection -) 40 mg IVPUSH BID@0600,1400 [facility] Last Admin: 03/06/17 05:59 Dose: 40 mg Hydralazine HCl (Apresoline -) 50 mg PO DAILY [facility] Last Admin: 03/05/17 09:39 Dose: 50 mg Isosorbide Mononitrate (Imdur -) 60 mg PO DAILY [facility] Last Admin: 03/05/17 09:39 Dose: 60 mg Magnesium Chloride (Slow-Mag -) 64 mg PO DAILY [facility] Last Admin: 03/05/17 15:22 Dose: 64 mg Magnesium Sulfate (Magnesium Sulfate) 2 gm IVPB ONCE ONE Stop: 03/06/17 08:37 Metoprolol Succinate (Toprol Xl -) 12.5 mg PO DAILY [facility] Last Admin: 03/05/17 09:38 Dose: 12.5 mg Pantoprazole Sodium (Protonix -) 20 mg PO DAILY [facility] Last Admin: 03/05/17 09:39 Dose: 20 mg Tamsulosin HCl (Flomax -) 0.4 mg PO DAILY@0830 [facility] Last Admin: 03/05/17 09:39 Dose: 0.4 mg Triamcinolone Acetonide (Aristocort 0.1% Cream -) 1 applic TP DAILY [facility] Last Admin: 03/05/17 09:39 Dose: Not Given 89 year old gentleman with PMhx of CAD s/p recent cardiac stent, CHF, Hyperlipidemia, BPH, Gout who presented with complaints of SOB, worsening LE edema and found to have acute HF and BERT. #Acute Renal Failure in setting of CHF/total body volume overload Renal function stable pt with effective diuresis with IV Lasix BID continue 40mg IV BID for today low salt diet, fluid restriction trend daily weights, BUN/Cr and electrolytes no SILVESTRE/ARB for now #Anemia iron studies show low iron saturation give Venofer 100mg IVPB today will need to be on oral iron on discharge stool occult blood negative #Hypomagnesemia in setting of IV diuretics give Mg sulfate 2g x 1 continue PO Slo-mg Luiz Soni DO
[2017-03-06] MEDS ORDERED: IRON SUCROSE INJECTION 100 MG in SODIUM CHLORIDE 95 ML IVPB ONE (09:00)
[2017-03-06] MEDS ORDERED: MAGNESIUM SULF 50% (8.12 MEQ/2 ML-1 GM VIAL) IVPB ONE (09:00)
[2017-03-06] MEDS ORDERED: PT OWN MED DRAWER 7, Y5N ONE (09:31)
[2017-03-06] MEDS: TAMSULOSIN HCL 0.4 MG CAP.ER.24H (FP) PO SCH (10:07)
[2017-03-06] MEDS: hydrALAZINE HCL 50 MG TABLET (FP) PO SCH (10:11)
[2017-03-06] MEDS: ASPIRIN 81 MG CHEWABLE TABLETS PO SCH (10:11)
[2017-03-06] MEDS: APIXABAN 2.5 MG TABLET PO SCH ×2 (10:12→21:26)
[2017-03-06] MEDS: DOCUSATE SODIUM 100 MG CAPSULE (FP) PO SCH ×2 (10:12→21:26)
[2017-03-06] MEDS: CLOPIDOGREL BISULFATE 75 MG TABLET (FP) PO SCH (10:13)
[2017-03-06] MEDS: ISOSORBIDE MONONITRATE 60 MG TAB.SR.24H (FP) PO SCH (10:13)
[2017-03-06] MEDS: PANTOPRAZOLE 20 MG TABLET (FP) PO SCH (10:13)
[2017-03-06] MEDS: MAGNESIUM CL 64 MG TABLET.SA PO SCH (10:14)
[2017-03-06] MEDS: METOPROLOL SUCCINATE 25 MG TAB.SR.24H (FP) PO SCH (10:15)
--- NOTE | 2017-03-06 11:31 | PN ---
Teaching Attending Note Name of Resident: Ann Churchill ATTENDING PHYSICIAN STATEMENT I saw and evaluated the patient. I reviewed the resident's note and discussed the case with the resident. I agree with the resident's findings and plan as documented. SUBJECTIVE:statea breathing has improved. denies CP, SOB, fever, chills, N/V/C/D , orthopnea OBJECTIVE: Last Vital Signs Temp Pulse Resp BP Pulse Ox 99.2 F 71 20 134/58 98 03/06/17 06:00 03/06/17 06:00 03/06/17 06:00 03/06/17 06:00 03/05/17 21:00 Intake & Output 03/03/17 03/04/17 03/05/17 03/06/17 23:59 23:59 23:59 23:59 Intake Total 360 1074 1020 10 Output Total 054 985 1992 350 Balance -540 149 -1730 -340 Weight 163 lb 163 lb 12.8 oz 157 lb 3.2 oz General nAD CV S1 S2 RRR no murmur/rub/gallop Lungs decreased R base, no crackles or wheezing Extremities 2 + pitting edema ASSESSMENT AND PLAN: 89yo M with PMH HTn, CKD, dyslipidemia, CAD s/p recent stent, diastoic CHF presented with dyspnea and weight gain 1. acute on chronic diastolic CHF- improved. down 6 lbs from yesterday. will cont lasix BID for now. Dry weight 150 per pt. cont lasix 40mg IV daily, monitor electrolytes. echo reviewed. cont metoprolol 2. New onset afib- currently in sinus rhythm. on dose adjusted eliqiuis. tolerating well. cardio on board. 3. BERT- likely pre-renal. improved with diuresis. hold acei. nephrology on board 4. CAD s/p recent stent- stent placed recently. on asa/plavix. will need to confirm with cards about continuoing triple therapy. 5. hypomagnesmia- MG 800mg 6. hyponatremia- due to CHF. resolved 7. Transaminitis- due to hepatic congestion.resolved. hepatitis panel pending. u /s with borderline hepatomegaly. 8. normocytic anemia- +iron def anemia. s/p venofer today. no reaction. slow trend down. no signs of bleeding. no indication for txn 9. DVT ppx- eliquis 10. spoke with children about plan. answered all questions, verbalized understanding and agreement with plan
[2017-03-06] MEDS: TRIAMCINOLONE ACET 0.1% CREAM 15 GM TUBE TP SCH (12:20)
[2017-03-06] MEDS: ATORVASTATIN CA 80 MG TABLET (FP) PO SCH (21:26)
[2017-03-07] MEDS: FUROSEMIDE 40 MG/4 ML INJECTABLE VIAL IVPUSH SCH ×2 (06:27→14:56)
[2017-03-07 08:28] LABS: EOS % 3.5 % (0-4.5); HEMATOCRIT 30.3 % (35.4-49); HEMOGLOBIN 9.9 GM/dL (11.7-16.9); LYMPH % 22.6 % (8-40); MCH 30.5 pg (25.7-33.7); MCHC 32.6 g/dl (32.0-35.9); MEAN CELL VOLUME 93.6 fl (80-96); MEAN PLT VOLUME 8.7 fl (7.5-11.1); MONO % 13.6 % (3.8-10.2); NEUT % 59.3 % (42.8-82.8); PLATELET COUNT 255 K/MM3 (134-434); RBC 3.24 M/mm3 (4.00-5.60); RDW 16.6 % (11.9-15.9); WHITE BLOOD COUNT 5.2 K/mm3 (4.0-10.0)
[2017-03-07 08:44] LABS: CHLORIDE 95 mmol/L (98-107); POTASSIUM 4.1 mmol/L (3.5-5.1); SODIUM 138 mmol/L (136-145)
[2017-03-07 09:10] LABS: ANION GAP 12 (8-16); BLOOD UREA NITROGEN 31 mg/dL (7-18); CALCIUM 9.4 mg/dL (8.5-10.1); CO2 31 mmol/L (21-32); CREATININE 1.5 mg/dL (0.7-1.3); GLUCOSE,RANDOM 84 mg/dL (74-106); MAGNESIUM 1.7 mg/dL (1.8-2.4); PHOSPHOROUS 3.8 mg/dL (2.5-4.9)
[2017-03-07] MEDS: TAMSULOSIN HCL 0.4 MG CAP.ER.24H (FP) PO SCH (09:49)
[2017-03-07] MEDS: ASPIRIN 81 MG CHEWABLE TABLETS PO SCH (09:50)
[2017-03-07] MEDS: hydrALAZINE HCL 50 MG TABLET (FP) PO SCH (09:50)
[2017-03-07] MEDS: METOPROLOL SUCCINATE 25 MG TAB.SR.24H (FP) PO SCH (09:50)
[2017-03-07] MEDS: APIXABAN 2.5 MG TABLET PO SCH ×2 (09:50→22:15)
[2017-03-07] MEDS: PANTOPRAZOLE 20 MG TABLET (FP) PO SCH (09:50)
[2017-03-07] MEDS: ISOSORBIDE MONONITRATE 60 MG TAB.SR.24H (FP) PO SCH (09:50)
[2017-03-07] MEDS: DOCUSATE SODIUM 100 MG CAPSULE (FP) PO SCH ×2 (09:50→22:15)
[2017-03-07] MEDS: CLOPIDOGREL BISULFATE 75 MG TABLET (FP) PO SCH (09:50)
[2017-03-07] MEDS: MAGNESIUM CL 64 MG TABLET.SA PO SCH (09:57)
[2017-03-07] MEDS ORDERED: PT OWN MED DRAWER 7, Y5N ONE (09:57)
[2017-03-07] MEDS: TRIAMCINOLONE ACET 0.1% CREAM 15 GM TUBE TP SCH (10:00)
--- NOTE | 2017-03-07 11:48 | PN ---
Progress Note, Physician History of Present Illness: he patient is an 89 year old male with past medical history of Gout, enlarged prostate, hypertension, and hyperlipidemia, who presents to the emergency department with complaints of SOB. hx CHF, worsening dyspnea on exertion, 13 lb weight gain in 3 weeks, swelling of legs. PMH Condition Date Treating Physician Comments ?esptic shock/dehydration, with transient multiorgan failure, hypotension, bradycardia leading to intubation, atropine, and pressors (see page 1 of note) anxiety/depression ASHD: negative stress MIBI 12/18/10 chronic bilateral leg swelling diastolic CHF hypercholesterolemia large ventral hernia mild anemia pre-syncope (dizzy; held onto wall; denies LOC) truncal obesity ventral hernia PCI ILIANA LAD [facility] 02-02-2017 - Current Medication List Current Medications: Active Medications Apixaban (Eliquis -) 2.5 mg PO BID [facility] Last Admin: 03/07/17 09:50 Dose: 2.5 mg Aspirin (Asa -) 81 mg PO DAILY [facility] Last Admin: 03/07/17 09:50 Dose: 81 mg Atorvastatin Calcium (Lipitor -) 80 mg PO HS [facility] Last Admin: 03/06/17 21:26 Dose: 80 mg Clopidogrel Bisulfate (Plavix -) 75 mg PO DAILY [facility] Last Admin: 03/07/17 09:50 Dose: 75 mg Docusate Sodium (Colace -) 100 mg PO BID [facility] Last Admin: 03/07/17 09:50 Dose: 100 mg Furosemide (Lasix Injection -) 40 mg IVPUSH BID@0600,1400 [facility] Last Admin: 03/07/17 06:27 Dose: 40 mg Hydralazine HCl (Apresoline -) 50 mg PO DAILY [facility] Last Admin: 03/07/17 09:50 Dose: 50 mg Isosorbide Mononitrate (Imdur -) 60 mg PO DAILY [facility] Last Admin: 03/07/17 09:50 Dose: 60 mg Magnesium Chloride (Slow-Mag -) 64 mg PO DAILY [facility] Last Admin: 03/07/17 09:57 Dose: 64 mg Metoprolol Succinate (Toprol Xl -) 12.5 mg PO DAILY [facility] Last Admin: 03/07/17 09:50 Dose: 12.5 mg Pantoprazole Sodium (Protonix -) 20 mg PO DAILY [facility] Last Admin: 03/07/17 09:50 Dose: 20 mg Tamsulosin HCl (Flomax -) 0.4 mg PO DAILY@0830 [facility] Last Admin: 03/07/17 09:49 Dose: 0.4 mg Triamcinolone Acetonide (Aristocort 0.1% Cream -) 1 applic TP DAILY [facility] Last Admin: 03/07/17 10:00 Dose: 1 applic - Objective Vital Signs: Vital Signs Temperature 98.1 F 03/07/17 10:00 Pulse Rate 78 03/07/17 10:00 Respiratory Rate 22 03/07/17 10:00 Blood Pressure 149/72 03/07/17 10:00 O2 Sat by Pulse Oximetry (%) 96 03/06/17 21:00 Eyes: Yes: WNL, Conjunctiva Clear, EOM Intact HENT: Yes: WNL, Atraumatic, Normocephalic Neck: Yes: WNL, Supple, Trachea Midline Cardiovascular: Yes: WNL, Regular Rate and Rhythm Respiratory: Yes: WNL, Regular, CTA Bilaterally Gastrointestinal: Yes: WNL, Normal Bowel Sounds Genitourinary: Yes: WNL Musculoskeletal: Yes: WNL Extremities: Yes: WNL Edema: Yes Integumentary: Yes: WNL Neurological: Yes: WNL, Alert, Oriented ...Motor Strength: WNL Psychiatric: Yes: WNL Labs: CBC, BMP 03/07/17 06:20 03/07/17 06:20 INR, PTT INR 1.40 (0.82-1.09) H 03/03/17 06:32 Problem List - Problems (1) Dyspnea Code(s): R06.00 - DYSPNEA, UNSPECIFIED Qualifiers: Dyspnea type: unspecified Qualified Code(s): R06.00 - Dyspnea, unspecified (2) Anxiety Code(s): F41.9 - ANXIETY DISORDER, UNSPECIFIED (3) Bradycardia Code(s): R00.1 - BRADYCARDIA, UNSPECIFIED (4) Chest pain Code(s): R07.9 - CHEST PAIN, UNSPECIFIED Qualifiers: Chest pain type: unspecified Qualified Code(s): R07.9 - Chest pain, unspecified (5) Diastolic CHF Code(s): I50.30 - UNSPECIFIED DIASTOLIC (CONGESTIVE) HEART FAILURE Qualifiers: Congestive heart failure chronicity: acute on chronic Qualified Code(s): I50.33 - Acute on chronic diastolic (congestive) heart failure (6) Hypertension Code(s): I10 - ESSENTIAL (PRIMARY) HYPERTENSION Qualifiers: Hypertension type: essential hypertension Qualified Code(s): I10 - Essential (primary) hypertension (7) Hypomagnesemia Code(s): E83.42 - HYPOMAGNESEMIA (8) Hyponatremia Code(s): E87.1 - HYPO-OSMOLALITY AND HYPONATREMIA (9) Pulmonary hypertension, moderate to severe Code(s): I27.20 - PULMONARY HYPERTENSION, UNSPECIFIED (10) Renal dysfunction Code(s): N28.9 - DISORDER OF KIDNEY AND URETER, UNSPECIFIED (11) Ventral hernia Code(s): K43.9 - VENTRAL HERNIA WITHOUT OBSTRUCTION OR GANGRENE Assessment/Plan - Problems (1) Dyspnea Code(s): R06.00 - DYSPNEA, UNSPECIFIED Qualifiers: Dyspnea type: unspecified Qualified Code(s): R06.00 - Dyspnea, unspecified (2) Anxiety Code(s): F41.9 - ANXIETY DISORDER, UNSPECIFIED (3) Hypertension Code(s): I10 - ESSENTIAL (PRIMARY) HYPERTENSION Qualifiers: Hypertension type: essential hypertension Qualified Code(s): I10 - Essential (primary) hypertension (4) Hypomagnesemia Assessment/Plan: keep Mag level 2-2.3 (given 1 g today; will add 2 g now). Code(s): E83.42 - HYPOMAGNESEMIA (5) Hyponatremia Assessment/Plan: Resolved On IV furosemide. Code(s): E87.1 - HYPO-OSMOLALITY AND HYPONATREMIA (6) Pulmonary hypertension, moderate to severe Code(s): I27.20 - PULMONARY HYPERTENSION, UNSPECIFIED (7) Renal dysfunction Code(s): N28.9 - DISORDER OF KIDNEY AND URETER, UNSPECIFIED (8) Ventral hernia Code(s): K43.9 - VENTRAL HERNIA WITHOUT OBSTRUCTION OR GANGRENE (9) Acute on chronic diastolic (congestive) heart failure Assessment/Plan: Likely exacerbated by ?new-onset AF. Weight gain of over 10 lbs in the past week. Plan: Continue metoprolol ER, hydralazine + isordil. Pt had been on lisinopril 2.5 mg daily at home; restart when cleared by tests superintendent. Replete magnesium, and keep 2-2.3. BUN/Cr, electrolytes, daily weight, Is and Os.(pT gained 2 bls since yesterday, but is asymptomatic, and says he has been eating much more in the hospital than at home. F/u over the weekend; as discussed with Dr. Soni, may require bid furosemide if wt gain continues or pt becomes symptomatic. Improving with diuresis cri resolving Code(s): I50.33 - ACUTE ON CHRONIC DIASTOLIC (CONGESTIVE) HEART FAILURE (10) Stented coronary artery Assessment/Plan: Recent (01/2017) DEStent of LAD. Continue clopidgrel and ASA. On metoprolol ER. Continue atorvastatin 80 mg daily for aggressive lipid control (f/u mild increase in LFTS: ? secondary to "passive congestion" from CHF). Code(s): Z95.5 - PRESENCE OF CORONARY ANGIOPLASTY IMPLANT AND GRAFT (11) GERD (gastroesophageal reflux disease) Assessment/Plan: Agree with pantoprazole (and would discharge pt with this medication, rather than omeprazole). Code(s): K21.9 - GASTRO-ESOPHAGEAL REFLUX DISEASE WITHOUT ESOPHAGITIS (12) Atrial fibrillation, new onset Assessment/Plan: On metoprolol ER; adjust dose (preominately slow VR): will decrease metoprolol from 25 mg to 12.5 mg daily.. Started IV heparin as discussed with Dr. Soni, will start apixaban 2.5 mg bid ( lower dose due to age and Cr level). IV heparin will be discontinued one hour before start of apixaban. ECHO: normal LVEF; moderately dilated LA and RA; moderately severe MR and TR; significant pulmonary HTN. Code(s): I48.91 - UNSPECIFIED ATRIAL FIBRILLATION
[2017-03-07] MEDS ORDERED: MAGNESIUM SULF 50% (8.12 MEQ/2 ML-1 GM VIAL) IVPB ONE (12:19)
--- NOTE | 2017-03-07 12:24 | PN ---
Progress Note (short form) - Note Progress Note: Renal Follow up for BERT Pt seen and examined at the bedside feels good no sob, chest pain leg edema improving Vital Signs Temperature 98.1 F 03/07/17 10:00 Pulse Rate 78 03/07/17 10:00 Respiratory Rate 22 03/07/17 10:00 Blood Pressure 149/72 03/07/17 10:00 O2 Sat by Pulse Oximetry (%) 96 03/06/17 21:00 Intake & Output 03/04/17 03/05/17 03/06/17 03/07/17 23:59 23:59 23:59 23:59 Intake Total 1074 1020 1060 580 Output Total 925 2750 3450 900 Balance 149 -1730 -2390 -320 Weight 74.298 kg 71.305 kg 68.266 kg NAD neck supple no JVD + edema to quarter arriola CBC, BMP 03/07/17 06:20 03/07/17 06:20 Current Medications Apixaban (Eliquis -) 2.5 mg PO BID [facility] Last Admin: 03/07/17 09:50 Dose: 2.5 mg Aspirin (Asa -) 81 mg PO DAILY [facility] Last Admin: 03/07/17 09:50 Dose: 81 mg Atorvastatin Calcium (Lipitor -) 80 mg PO HS [facility] Last Admin: 03/06/17 21:26 Dose: 80 mg Clopidogrel Bisulfate (Plavix -) 75 mg PO DAILY [facility] Last Admin: 03/07/17 09:50 Dose: 75 mg Docusate Sodium (Colace -) 100 mg PO BID [facility] Last Admin: 03/07/17 09:50 Dose: 100 mg Furosemide (Lasix Injection -) 40 mg IVPUSH BID@0600,1400 [facility] Last Admin: 03/07/17 06:27 Dose: 40 mg Hydralazine HCl (Apresoline -) 50 mg PO DAILY [facility] Last Admin: 03/07/17 09:50 Dose: 50 mg Isosorbide Mononitrate (Imdur -) 60 mg PO DAILY [facility] Last Admin: 03/07/17 09:50 Dose: 60 mg Magnesium Chloride (Slow-Mag -) 64 mg PO DAILY [facility] Last Admin: 03/07/17 09:57 Dose: 64 mg Magnesium Sulfate (Magnesium Sulfate) 2 gm IVPB ONCE ONE Stop: 03/07/17 12:20 Metoprolol Succinate (Toprol Xl -) 12.5 mg PO DAILY [facility] Last Admin: 03/07/17 09:50 Dose: 12.5 mg Pantoprazole Sodium (Protonix -) 20 mg PO DAILY [facility] Last Admin: 03/07/17 09:50 Dose: 20 mg Tamsulosin HCl (Flomax -) 0.4 mg PO DAILY@0830 [facility] Last Admin: 03/07/17 09:49 Dose: 0.4 mg Triamcinolone Acetonide (Aristocort 0.1% Cream -) 1 applic TP DAILY [facility] Last Admin: 03/07/17 10:00 Dose: 1 applic 89 year old gentleman with PMhx of CAD s/p recent cardiac stent, CHF, Hyperlipidemia, BPH, Gout who presented with complaints of SOB, worsening LE edema and found to have acute HF and BERT. #Acute Renal Failure in setting of CHF/total body volume overload renal function improved and stable with IV Lasix edema improving BUN/Cr not yet at baseline would continue IV lasix for now with plan to transition to oral diuretics tomorrow would withhold starting SILVESTRE/ARB once on maintiance dose of diuretics #Anemia s/p IV iron yesterday start FeSO4 BID #Hypomagnesemia in setting of IV diuretics give Mg sulfate 2g x 1 continue PO Slo-mg Luiz Soni DO
[2017-03-07] MEDS: MAGNESIUM 1GM/D5W - 1 GM/100 ML IVPB IVPB SCH ×2 (13:54→14:56)
--- NOTE | 2017-03-07 14:22 | PN ---
Progress Note (short form) - Note Progress Note: no complaints. denies CP, SOB, fever, chills, N/V/C/D Current Medications Generic Name Dose Route Start Last Admin Trade Name Alicia PRN Reason Stop Dose Admin Apixaban 2.5 mg 03/04/17 22:00 03/07/17 09:50 Eliquis - PO 2.5 mg BID IRANNA Administration Aspirin 81 mg 03/03/17 10:00 03/07/17 09:50 Asa - PO 81 mg DAILY RIANNA Administration Atorvastatin Calcium 80 mg 03/03/17 22:00 03/06/17 21:26 Lipitor - PO 80 mg HS RIANNA Administration Clopidogrel Bisulfate 75 mg 03/03/17 10:00 03/07/17 09:50 Plavix - PO 75 mg DAILY RIANNA Administration Docusate Sodium 100 mg 03/02/17 22:00 03/07/17 09:50 Colace - PO 100 mg BID RIANNA Administration Furosemide 40 mg 03/06/17 06:00 03/07/17 06:27 Lasix Injection - IVPUSH 40 mg BID@0600,1400 RIANNA Administration Hydralazine HCl 50 mg 03/03/17 10:00 03/07/17 09:50 Apresoline - PO 50 mg DAILY RIANNA Administration Magnesium Sulfate/Dextrose 1 gm in 100 mls @ 100 mls/hr 03/07/17 12:30 13:54 Magnesium 1gm/D5w - IVPB 03/07/17 14:29 100 mls/hr Q1H RIANNA Administration Isosorbide Mononitrate 60 mg 03/03/17 10:00 03/07/17 09:50 Imdur - PO 60 mg DAILY RIANNA Administration Magnesium Chloride 64 mg 03/05/17 12:45 03/07/17 09:57 Slow-Mag - PO 64 mg DAILY RIANNA Administration Metoprolol Succinate 12.5 mg 03/05/17 10:00 03/07/17 09:50 Toprol Xl - PO 12.5 mg DAILY RIANNA Administration Pantoprazole Sodium 20 mg 03/03/17 10:00 03/07/17 09:50 Protonix - PO 20 mg DAILY RIANNA Administration Tamsulosin HCl 0.4 mg 03/03/17 08:30 03/07/17 09:49 Flomax - PO 0.4 mg DAILY@0830 RIANNA Administration Triamcinolone Acetonide 1 applic 01/11/18 10:00 03/07/17 10:00 Aristocort 0.1% Cream - TP 1 applic DAILY RIANNA Administration Last Vital Signs Temp Pulse Resp BP Pulse Ox 98.1 F 78 22 149/72 96 03/07/17 10:00 03/07/17 10:00 03/07/17 10:00 03/07/17 10:00 03/07/17 09:00 Intake & Output 03/04/17 03/05/17 03/06/17 03/07/17 23:59 23:59 23:59 23:59 Intake Total 1074 1020 1060 580 Output Total 925 2750 3450 900 Balance 149 -1730 -2390 -320 Weight 163 lb 12.8 oz 157 lb 3.2 oz 150 lb 8 oz General nAD CV S1 S2 RRR no murmur/rub/gallop Lungs decreased R base, no crackles or wheezing Extremities 2 + pitting edema CBCD WBC 5.2 K/mm3 (4.0-10.0) 03/07/17 06:20 RBC 3.24 M/mm3 (4.00-5.60) L 03/07/17 06:20 Hgb 9.9 GM/dL (11.7-16.9) L D 03/07/17 06:20 Hct 30.3 % (35.4-49) L 03/07/17 06:20 MCV 93.6 fl (80-96) 03/07/17 06:20 MCHC 32.6 g/dl (32.0-35.9) 03/07/17 06:20 RDW 16.6 % (11.9-15.9) H 03/07/17 06:20 Plt Count 255 K/MM3 (134-434) 03/07/17 06:20 MPV 8.7 fl (7.5-11.1) 03/07/17 06:20 CMP Sodium 138 mmol/L (136-145) 03/07/17 06:20 Potassium 4.1 mmol/L (3.5-5.1) 03/07/17 06:20 Chloride 95 mmol/L (98-107) L 03/07/17 06:20 Carbon Dioxide 31 mmol/L (21-32) 03/07/17 06:20 Anion Gap 12 (8-16) 03/07/17 06:20 BUN 31 mg/dL (7-18) H D 03/07/17 06:20 Creatinine 1.5 mg/dL (0.7-1.3) H 03/07/17 06:20 Creat Clearance w eGFR 38.14 (>60) 03/04/17 06:15 Calcium 9.4 mg/dL (8.5-10.1) 03/07/17 06:20 Total Bilirubin 0.8 mg/dL (0.2-1.0) 03/04/17 06:15 AST 23 U/L (15-37) D 03/04/17 06:15 ALT 63 U/L (12-78) D 03/04/17 06:15 Alkaline Phosphatase 75 U/L (45-117) 03/04/17 06:15 Total Protein 5.6 g/dl (6.4-8.2) L 03/04/17 06:15 Albumin 2.8 g/dl (3.4-5.0) L 03/04/17 06:15 ASSESSMENT AND PLAN: 89yo M with PMH HTn, CKD, dyslipidemia, CAD s/p recent stent, diastoic CHF presented with dyspnea and weight gain 1. acute on chronic diastolic CHF-Dry weight 150 per pt. improved. down 7 lbs from yesterday. will cont lasix BID for now. can likely transition to po tomorrow. echo reviewed. cont metoprolol 2. New onset afib- currently in sinus rhythm. on dose adjusted eliqiuis. tolerating well. cardio on board. 3. BERT- likely pre-renal. improved with diuresis. hold acei. nephrology on board 4. CAD s/p recent stent- stent placed recently. on asa/plavix. cardiology aware on triple therapy. had stent placement in 02/06 will need to continue for some time. 5. hypomagnesmia- Mg 2g 6. hyponatremia- due to CHF. resolved 7. Transaminitis- due to hepatic congestion.resolved. hepatitis panel pending. u /s with borderline hepatomegaly. 8. normocytic anemia- +iron def anemia. s/p venofer yesterday. now on oral. will need iron studies repeated in 3 months. no signs of bleeding. no indication for txn 9. DVT ppx- eliquis 10. spoke with about plan. answered all questions, verbalized understanding and agreement with plan. aware anticipated d/c tomorrow Visit type - Emergency Visit Emergency Visit: Yes ED Registration Date: 03/02/17 Care time: The patient presented to the Emergency Department on the above date and was hospitalized for further evaluation of their emergent condition. - New Patient This patient is new to me today: No - Critical Care Critical Care patient: No - Discharge Referral Referred to [facility] Med P.C.: No
--- NOTE | 2017-03-07 16:37 | EKG ---
Test Reason : Blood Pressure : / mmHG Vent. Rate : 066 BPM Atrial Rate : 097 BPM P-R Int : 196 ms QRS Dur : 104 ms QT Int : 414 ms P-R-T Axes : 000 010 041 degrees QTc Int : 434 ms SINUS RHYTHM WITH BLOCKED PREMATURE ATRIAL COMPLEXES OTHERWISE NORMAL ECG WHEN COMPARED WITH ECG OF 04-MAR-2017 08:46, SINUS RHYTHM HAS REPLACED ATRIAL FIBRILLATION NONSPECIFIC T WAVE ABNORMALITY HAS REPLACED INVERTED T WAVES IN INFERIOR LEADS CLINICAL CORRELATION IS RECOMMENDED Confirmed by TEREZA MARTIN, OLIMPIA ([id number]) on 03/07/2017 4:37:22 PM Referred By: Confirmed By:OLIMPIA STARKS MD
[2017-03-07] MEDS: ATORVASTATIN CA 80 MG TABLET (FP) PO SCH (22:15)
[2017-03-08] MEDS: FUROSEMIDE 40 MG/4 ML INJECTABLE VIAL IVPUSH SCH (06:34)
[2017-03-08 07:22] LABS: HEMATOCRIT 28.1 % (35.4-49); HEMOGLOBIN 9.2 GM/dL (11.7-16.9); MCH 30.7 pg (25.7-33.7); MCHC 32.7 g/dl (32.0-35.9); MEAN PLT VOLUME 8.8 fl (7.5-11.1); PLATELET COUNT 249 K/MM3 (134-434); RBC 2.99 M/mm3 (4.00-5.60); RDW 16.4 % (11.9-15.9)
[2017-03-08 07:49] LABS: ANION GAP 9 (8-16); BLOOD UREA NITROGEN 31 mg/dL (7-18); CALCIUM 9.2 mg/dL (8.5-10.1); CHLORIDE 96 mmol/L (98-107); CO2 34 mmol/L (21-32); CREATININE 1.4 mg/dL (0.7-1.3); GLUCOSE,RANDOM 90 mg/dL (74-106); SODIUM 139 mmol/L (136-145)
--- NOTE | 2017-03-08 07:53 | PN ---
Physical Exam: SUBJECTIVE: Patient seen and examined by me - No major events overnight. Still with dry cough. No CP, chest tightness, N/V, abdominal pain, GODWIN/dizziness, THOMAS, PND. Still with dry cough and BL LE edema. - Ambulating well with improvement in dyspnea. Complaining of constipation, no BM for 2 days. OBJECTIVE: Vital Signs Period Temp Pulse Resp BP Sys/Clifton Pulse Ox Last 24 Hr 97.3 F-98.2 F 69-79 20-22 98-149/40-72 96-96 GENERAL: Awake, alert, and fully oriented, in no acute distress. HEAD: Normal with no signs of trauma. EYES: Pupils equal, round and reactive to light, extraocular movements intact, sclera anicteric, conjunctiva clear. No lid lag. EARS, NOSE, THROAT: Ears normal, nares patent, oropharynx clear without exudates. Moist mucous membranes. NECK: JVD+ 4cm below mandible, Normal range of motion, supple without lymphadenopathy, JVD, or masses. LUNGS: Trace rhonchi. No wheezes. No accessory muscle use. HEART: IRR IRR, normal S1 and S2, S3 noted. 2/6 systolic blowing murmur heard at LLSB. ABDOMEN: Distended, NT, soft. normoactive bowel sounds, no guarding, no rebound , no masses. No hepatomegaly or splenomegaly. Diffuse inflamed petechial noted on abdomen, crossing midline. Ventral hernia noted. MUSCULOSKELETAL: Normal range of motion at all joints. No bony deformities or tenderness. No CVA tenderness. UPPER EXTREMITIES: 2+ pulses, warm, well-perfused. No cyanosis. No clubbing. No peripheral edema. LOWER EXTREMITIES: 2+ pitting edema to knees. 2+ DP, PT pulses. WWP. No calf tenderness. NEUROLOGICAL: Cranial nerves II-XII intact. Normal speech. Gait not evaluated. PSYCHIATRIC: Cooperative. Good eye contact. Appropriate mood and affect. SKIN: Warm, dry, normal turgor, no rashes or lesions noted, normal capillary refill. Laboratory Results - last 24 hr CBC, BMP 03/08/17 06:17 03/08/17 06:17 03/07/17 03/07/17 03/07/17 06:20 06:20 06:20 WBC 5.2 RBC 3.24 L Hgb 9.9 L D Hct 30.3 L MCV 93.6 MCH 30.5 MCHC 32.6 RDW 16.6 H Plt Count 255 MPV 8.7 Neutrophils % 59.3 Lymphocytes % 22.6 Monocytes % 13.6 H Eosinophils % 3.5 Basophils % 1.0 PTT (Actin FS) 31.4 Sodium 138 Potassium 4.1 Chloride 95 L Carbon Dioxide 31 Anion Gap 12 BUN 31 H D Creatinine 1.5 H Random Glucose 84 Calcium 9.4 Phosphorus 3.8 Magnesium 1.7 L D 03/08/17 06:17 WBC 5.0 RBC 2.99 L Hgb 9.2 L Hct 28.1 L MCV 94.0 MCH 30.7 MCHC 32.7 RDW 16.4 H Plt Count 249 MPV 8.8 Neutrophils % Lymphocytes % Monocytes % Eosinophils % Basophils % PTT (Actin FS) Sodium Potassium Chloride Carbon Dioxide Anion Gap BUN Creatinine Random Glucose Calcium Phosphorus Magnesium Active Medications Generic Name Dose Route Start Last Admin Trade Name Freq PRN Reason Stop Dose Admin Apixaban 2.5 mg 03/04/17 22:00 03/07/17 22:15 Eliquis - PO 2.5 mg BID RIANNA Administration Aspirin 81 mg 03/03/17 10:00 03/07/17 09:50 Asa - PO 81 mg DAILY RIANNA Administration Atorvastatin Calcium 80 mg 03/03/17 22:00 03/07/17 22:15 Lipitor - PO 80 mg HS RIANNA Administration Clopidogrel Bisulfate 75 mg 03/03/17 10:00 03/07/17 09:50 Plavix - PO 75 mg DAILY RIANNA Administration Docusate Sodium 100 mg 03/02/17 22:00 03/07/17 22:15 Colace - PO 100 mg BID RIANNA Administration Furosemide 40 mg 03/06/17 06:00 03/08/17 06:34 Lasix Injection - IVPUSH 40 mg BID@0600,1400 RIANNA Administration Hydralazine HCl 50 mg 03/03/17 10:00 03/07/17 09:50 Apresoline - PO 50 mg DAILY RIANNA Administration Isosorbide Mononitrate 60 mg 03/03/17 10:00 03/07/17 09:50 Imdur - PO 60 mg DAILY RIANNA Administration Magnesium Chloride 64 mg 03/05/17 12:45 03/07/17 09:57 Slow-Mag - PO 64 mg DAILY RIANNA Administration Metoprolol Succinate 12.5 mg 03/05/17 10:00 03/07/17 09:50 Toprol Xl - PO 12.5 mg DAILY RIANNA Administration Pantoprazole Sodium 20 mg 03/03/17 10:00 03/07/17 09:50 Protonix - PO 20 mg DAILY RIANNA Administration Tamsulosin HCl 0.4 mg 03/03/17 08:30 03/07/17 09:49 Flomax - PO 0.4 mg DAILY@0830 RIANNA Administration Triamcinolone Acetonide 1 applic 03/03/17 10:00 03/07/17 10:00 Aristocort 0.1% Cream - TP 1 applic DAILY RIANNA Administration Abdominal U/S 03/03 - Borderline hepatomegaly with a slightly nodular contour and slightly coarse echotexture. Rule out hepatocellular disease. Please correlate with liver enzymes. Very limited visualization of the likely contracted gallbladder with intraluminal debris is and likely small stones. No pericholecystic free fluid is present. Right pleural effusion Small amount of free fluid/ascites in the right and left upper abdomen Nonvisualization of the pancreas CXR 03/03 : Right pleural effusion with right basilar consolidation. Right lateral decubitus view of the chest may be considered. Bilateral skin folds. Cardiomegaly. EKG (admission): Rate 58, NAD, Irregularly irregular, no p-waves noted - possibly afib w/ bradycardia or aflutter w/ variable conduction EKG 03/06 - NSR, NAD, rate 66, QTC 434, 2nd degree type 1 HB noted. ECHO 10/2015 - Biatrial dilatation. Moderate MR, severe TR, mild/moderate AR/NJ. Calculated EF 75%. Normal LV function. ECHO 03/03/2017 - LV function normal. Biatrial dilatation. Severe TR. EF 73% ASSESSMENT/PLAN: 89 year old male with a pmh of CHF, CAD, HTN, HLD, gout, BPH, who presents to ED in setting of 3 weeks weight gain and worsening SOB, THOMAS after receiving cardiac stent at [facility]. Pt continues to improve clinically, will likely go home today after transitioning to PO lasix. #Acute on Chronic CHF exacerbation - BNP 7049 on admission; ECHO w/ normal LV function, severe TR; Pt diuresing well; lost 6kg over last 48 hours - Transitioned to PO lasix 40mg PO BID today per renal - Cardiology consulted, recs appreciate - sodium restricted diet - monitor fluid status - C/w imdur, metoprolol - Strict Is and Os - Daily weights - c/w #BERT - baseline 1.0; Downtrending 1.5 -> 1.4. Likely cardiorenal in nature - Trend Cr - daily bmps - Renal consulted, recs appreciated - PO lasix BID #CAD - prior cardiac stents x2; stress test in 06/07 positive - ASA, plavix #Afib/aflutter on EKG - Currently NSR w/ intermittent second degree HB Type 1. CHADs-Vasc of 5; Pt with no prior hx of bleeds, recent major surgeries. - Cardiology informed of 2nd degree HB on EKG; will decide on appropriate BB dose - C/w Toprol XL 12.5 MG BID - Eliquis 2.5 BID #HypoMg- 2.0 today - Oral Mg qD - Daily Mgs - Replete as needed #HTN - imdur, hydralazine - Resume amlodipine 10mg qD #Anemia - 8.2 on admission; 9.7 on 02/02; FOBT neg; Low iron sat; - s/p IV iron yesterday, start on FeSO4 BID on d/c - Trend H/H #GERD - PPI #BPH - Complaining of intermittent hesitancy - c/w home flomax #Constipation - No BM for 2 days - Senna, colace PPX Eliquis PPI FEN PO hydration daily bmps, trend cr/na sodium restricted diet, <2g Discharge home today with follow-up with cardiology, renal and PCP Plan discussed with attending, Dr. Kemi Tena, PGY1 Visit type - Emergency Visit Emergency Visit: Yes ED Registration Date: 03/02/17 Care time: The patient presented to the Emergency Department on the above date and was hospitalized for further evaluation of their emergent condition. - New Patient This patient is new to me today: Yes Date on this admission: 03/08/17 - Critical Care Critical Care patient: No
[2017-03-08] MEDS: ASPIRIN 81 MG CHEWABLE TABLETS PO SCH (09:02)
[2017-03-08] MEDS: ISOSORBIDE MONONITRATE 60 MG TAB.SR.24H (FP) PO SCH (09:02)
[2017-03-08] MEDS: DOCUSATE SODIUM 100 MG CAPSULE (FP) PO SCH (09:02)
[2017-03-08] MEDS: CLOPIDOGREL BISULFATE 75 MG TABLET (FP) PO SCH (09:02)
[2017-03-08] MEDS: hydrALAZINE HCL 50 MG TABLET (FP) PO SCH (09:02)
[2017-03-08] MEDS: METOPROLOL SUCCINATE 25 MG TAB.SR.24H (FP) PO SCH (09:02)
[2017-03-08] MEDS: PANTOPRAZOLE 20 MG TABLET (FP) PO SCH (09:02)
[2017-03-08] MEDS: TAMSULOSIN HCL 0.4 MG CAP.ER.24H (FP) PO SCH (09:02)
[2017-03-08] MEDS: APIXABAN 2.5 MG TABLET PO SCH (09:02)
[2017-03-08] MEDS ORDERED: PT OWN MED DRAWER 7, Y5N ONE (09:04)
[2017-03-08] MEDS: MAGNESIUM CL 64 MG TABLET.SA PO SCH (09:07)
[2017-03-08 10:28] VITALS: TEMP 98.9
[2017-03-08] MEDS: TRIAMCINOLONE ACET 0.1% CREAM 15 GM TUBE TP SCH (11:04)
--- NOTE | 2017-03-08 12:33 | PN ---
Teaching Attending Note Name of Resident: Omra Tena ATTENDING PHYSICIAN STATEMENT Time of evaluation: 11:55 PM I saw and evaluated the patient. I reviewed the resident's note and discussed the case with the resident. I agree with the resident's findings and plan as documented. SUBJECTIVE: patient seen and examined. breathing and leg swelling markedly improved. Has lost a lot of weight. Just walked with respiratory therapist. No dizziness, palpitations or new complaints. OBJECTIVE: Vital Signs Period Temp Pulse Resp BP Sys/Clifton Pulse Ox Last 24 Hr 97.3 F-98.9 F 69-109 20-20 98-144/40-63 92-97 Intake & Output 03/05/17 03/06/17 03/07/17 03/08/17 23:59 23:59 23:59 23:59 Intake Total 1020 1060 1180 Output Total 2750 3450 1200 Balance -1730 -2390 -20 Weight 163 lb 12.8 oz 157 lb 3.2 oz 150 lb 8 oz 148 lb 3.2 oz General: sitting at edge of bed in no acute distress CVS;S1S2 irregular Chest: few right basilar rales, good air entry bilaterally neck: jugular vein distension, no hepatojugular reflux noted Extremities: trace pedal edema Home Medication List Medication Instructions Recorded Confirmed Type Allopurinol [Zyloprim -] 100 mg PO DAILY 03/02/17 03/02/17 History Amlodipine Besylate [Norvasc -] 10 mg PO DAILY 03/02/17 03/02/17 History Aspirin 81 mg PO DAILY 03/02/17 03/02/17 History Atorvastatin Ca [Lipitor] 80 mg PO HS 03/02/17 03/02/17 History Clopidogrel Bisulfate [Plavix] 75 mg PO DAILY 03/02/17 03/02/17 History Docusate Sodium [Colace] 100 mg PO BID 03/02/17 03/02/17 History Furosemide [Lasix] 20 mg PO BID 03/02/17 03/02/17 History Hydralazine HCl 50 mg PO DAILY 03/02/17 03/02/17 History Isosorbide Mononitrate [Imdur -] 60 mg PO DAILY 03/02/17 03/02/17 History Lisinopril [Zestril] 2.5 mg PO DAILY 03/02/17 03/02/17 History Metoprolol Succinate 25 mg PO DAILY 03/02/17 03/02/17 History Omeprazole 20 mg PO DAILY 03/02/17 03/02/17 History Tamsulosin HCl [Flomax] 0.4 mg PO DAILY 03/02/17 03/02/17 History Triamcinolone 0.1% Cream 0 gm TP DAILY 03/02/17 03/02/17 History [Aristocort] Nitroglycerin 0.4 mg PO ONCE PRN 03/03/17 03/03/17 History Active Medications Generic Name Dose Route Start Last Admin Trade Name Freq PRN Reason Stop Dose Admin Apixaban 2.5 mg 03/04/17 22:00 03/08/17 09:02 Eliquis - PO 2.5 mg BID RIANNA Administration Aspirin 81 mg 03/03/17 10:00 03/08/17 09:02 Asa - PO 81 mg DAILY RIANNA Administration Atorvastatin Calcium 80 mg 03/03/17 22:00 03/07/17 22:15 Lipitor - PO 80 mg HS RIANNA Administration Clopidogrel Bisulfate 75 mg 03/03/17 10:00 03/08/17 09:02 Plavix - PO 75 mg DAILY RIANNA Administration Docusate Sodium 100 mg 03/02/17 22:00 03/08/17 09:02 Colace - PO 100 mg BID RIANNA Administration Furosemide 40 mg 03/08/17 14:00 Lasix - PO BID@0600,1400 [facility] Hydralazine HCl 50 mg 03/03/17 10:00 03/08/17 09:02 Apresoline - PO 50 mg DAILY RIANNA Administration Isosorbide Mononitrate 60 mg 03/03/17 10:00 03/08/17 09:02 Imdur - PO 60 mg DAILY RIANNA Administration Magnesium Chloride 64 mg 03/05/17 12:45 03/08/17 09:07 Slow-Mag - PO 64 mg DAILY RIANNA Administration Metoprolol Succinate 12.5 mg 03/05/17 10:00 03/08/17 09:02 Toprol Xl - PO 12.5 mg DAILY RIANNA Administration Pantoprazole Sodium 20 mg 03/03/17 10:00 03/08/17 09:02 Protonix - PO 20 mg DAILY RIANNA Administration Tamsulosin HCl 0.4 mg 03/03/17 08:30 03/08/17 09:02 Flomax - PO 0.4 mg DAILY@0830 RIANNA Administration Triamcinolone Acetonide 1 applic 03/03/17 10:00 03/08/17 11:04 Aristocort 0.1% Cream - TP 1 applic DAILY RIANNA Administration Laboratory Results - last 24 hr 03/08/17 03/08/17 03/08/17 06:17 06:17 06:17 WBC 5.0 RBC 2.99 L Hgb 9.2 L Hct 28.1 L MCV 94.0 MCH 30.7 MCHC 32.7 RDW 16.4 H Plt Count 249 MPV 8.8 PTT (Actin FS) 32.4 Sodium 139 Potassium 4.0 Chloride 96 L Carbon Dioxide 34 H Anion Gap 9 BUN 31 H Creatinine 1.4 H Random Glucose 90 Calcium 9.2 Magnesium 2.0 2D echo results reviewed Abdominal ultrasound results reviewed ASSESSMENT AND PLAN: 89yo M with PMH HTN, CKD, dyslipidemia, CAD s/p recent stent, diastoic CHF presented with dyspnea and weight gain -Acute on chronic diastolic heart failure -Atrial fibrillation/flutter with ?intermittent Wenckeback AV block -BERT, likely prerenal from CHF, improved with diuresis -CAD s/t recent PCI 02/06 -Hyponatremia, suspect hypervolumic -Hypomagnesemia -Transaminitis, mild transient, suspect from passive hepatic congestion -Normocytic anemia -h/o ? septic shock with multiorgan failure with hypotension/bradycardia requiring intubation/atropine/pressors Plan: Diuresing well, lost significant weight here, discussed with Dr. Baker and Dr. Soni, lasix changed to 40 mg PO BID today. Addressed ?intermittent Wenckeback's on telemetry with HR 60s-80s with Dr. Moyer, will follow up for recs regarding lopressor and additional management. Patient asymptomatic. Started on eliquis. 2D echo reviewed. Renal function stable. Monitor on PO lasix. Continue to hold SILVESTRE for now. Continue hydralazine, Imdur. Resume amlodipine if persistently hypertensive, if home med confirmed. LFts normalized, no abdominal symptoms, Abdominal ultrasound noted. Replete K/Mg prn. S/p IV iron, started on PO iron, repeat studies in 3 months. No gross evidence of bleed. Dispo check ambulatory oxygen needs and PT eval. D/c in 24 hours if no concerns and continues to improve on oral lasix. Plan discussed with patient and at bedside in detail, all questions answered.
[2017-03-08] MEDS ORDERED: FUROSEMIDE 40 MG TABLET (FP) PO SCH (14:00)
[2017-03-08 14:01] VITALS: BP 128/78; PULSE 77
[2017-03-08] MEDS ORDERED: SENNOSIDES 8.6MG TABLET (FP) PO PRN (15:12)
--- NOTE | 2017-03-08 15:12 | PN ---
Progress Note (short form) - Note Progress Note: Renal Follow up for BERT Pt seen and examined at the bedside no acute complaints LE edema significantly improved no sob, chest pain, cough, N/V Vital Signs Temperature 98.9 F 03/08/17 14:00 Pulse Rate 77 03/08/17 14:00 Respiratory Rate 20 03/08/17 14:00 Blood Pressure 128/78 03/08/17 14:00 O2 Sat by Pulse Oximetry (%) 92 L 03/08/17 09:06 Intake & Output 03/05/17 03/06/17 03/07/17 03/08/17 23:59 23:59 23:59 23:59 Intake Total 1020 1060 1180 34 Output Total 2750 3450 1200 1200 Balance -8889 -2683 -20 -6484 Weight 74.298 kg 71.305 kg 68.266 kg 67.222 kg NAD neck supple no JVD + edema to quarter arriola CBC, BMP 03/08/17 06:17 03/08/17 06:17 Laboratory Tests 03/08/17 06:17 Magnesium 2.0 Current Medications Apixaban (Eliquis -) 2.5 mg PO BID [facility] Last Admin: 03/08/17 09:02 Dose: 2.5 mg Aspirin (Asa -) 81 mg PO DAILY [facility] Last Admin: 03/08/17 09:02 Dose: 81 mg Atorvastatin Calcium (Lipitor -) 80 mg PO HS [facility] Last Admin: 03/07/17 22:15 Dose: 80 mg Clopidogrel Bisulfate (Plavix -) 75 mg PO DAILY [facility] Last Admin: 03/08/17 09:02 Dose: 75 mg Docusate Sodium (Colace -) 100 mg PO BID [facility] Last Admin: 03/08/17 09:02 Dose: 100 mg Furosemide (Lasix -) 40 mg PO BID@0600,1400 [facility] Last Admin: 03/08/17 14:07 Dose: 40 mg Hydralazine HCl (Apresoline -) 50 mg PO DAILY [facility] Last Admin: 03/08/17 09:02 Dose: 50 mg Isosorbide Mononitrate (Imdur -) 60 mg PO DAILY [facility] Last Admin: 03/08/17 09:02 Dose: 60 mg Magnesium Chloride (Slow-Mag -) 64 mg PO DAILY [facility] Last Admin: 03/08/17 09:07 Dose: 64 mg Metoprolol Succinate (Toprol Xl -) 12.5 mg PO DAILY [facility] Last Admin: 03/08/17 09:02 Dose: 12.5 mg Pantoprazole Sodium (Protonix -) 20 mg PO DAILY [facility] Last Admin: 03/08/17 09:02 Dose: 20 mg Tamsulosin HCl (Flomax -) 0.4 mg PO DAILY@0830 [facility] Last Admin: 03/08/17 09:02 Dose: 0.4 mg Triamcinolone Acetonide (Aristocort 0.1% Cream -) 1 applic TP DAILY [facility] Last Admin: 03/08/17 11:04 Dose: 1 applic 89 year old gentleman with PMhx of CAD s/p recent cardiac stent, CHF, Hyperlipidemia, BPH, Gout who presented with complaints of SOB, worsening LE edema and found to have acute HF and BERT. #Acute Renal Failure in setting of CHF/total body volume overload renal function significantly improved will transition to oral Lasix 40mg BID low salt diet will need to trend weights and renal function as outpatient and titrate diuretics as needed would defer restarting SILVESTRE/ARB until renal function gets back to baseline and stable dose of diuretics are obtained. #Anemia continue oral iron #Hypomagnesemia in setting of IV diuretics magnesium improved today Luiz Soni DO
--- NOTE | 2017-03-08 15:26 | PN ---
Progress Note, Physician Chief Complaint: Pt A&Ox3; not dyspneic; no chest pain or palpitations; c/o constipations x 3 days. History of Present Illness: Mr Pham is an 89 year old white man with past medical history of diastolic CHF; CAD-->PCI (DEstent LAD 01/2017), Gout, enlarged prostate, hypertension, and hyperlipidemia, who presents to the emergency department with complaints of SOB. hx CHF, worsening dyspnea on exertion, 13 lb weight gain in 3 weeks, swelling of legs. PMH Condition Date Treating Physician Comments ?esptic shock/dehydration, with transient multiorgan failure, hypotension, bradycardia leading to intubation, atropine, and pressors (see page 1 of note) anxiety/depression ASHD: negative stress MIBI 12/18/10 chronic bilateral leg swelling diastolic CHF hypercholesterolemia large ventral hernia mild anemia pre-syncope (dizzy; held onto wall; denies LOC) truncal obesity ventral hernia PCI [facility] 02-02-2017 - Current Medication List Current Medications: Active Medications Apixaban (Eliquis -) 2.5 mg PO BID [facility] Last Admin: 03/08/17 09:02 Dose: 2.5 mg Aspirin (Asa -) 81 mg PO DAILY [facility] Last Admin: 03/08/17 09:02 Dose: 81 mg Atorvastatin Calcium (Lipitor -) 80 mg PO HS [facility] Last Admin: 03/07/17 22:15 Dose: 80 mg Clopidogrel Bisulfate (Plavix -) 75 mg PO DAILY [facility] Last Admin: 03/08/17 09:02 Dose: 75 mg Docusate Sodium (Colace -) 100 mg PO BID [facility] Last Admin: 03/08/17 09:02 Dose: 100 mg Furosemide (Lasix -) 40 mg PO BID@0600,1400 [facility] Last Admin: 03/08/17 14:07 Dose: 40 mg Hydralazine HCl (Apresoline -) 50 mg PO DAILY [facility] Last Admin: 03/08/17 09:02 Dose: 50 mg Isosorbide Mononitrate (Imdur -) 60 mg PO DAILY [facility] Last Admin: 03/08/17 09:02 Dose: 60 mg Magnesium Chloride (Slow-Mag -) 64 mg PO DAILY [facility] Last Admin: 03/08/17 09:07 Dose: 64 mg Metoprolol Succinate (Toprol Xl -) 12.5 mg PO DAILY [facility] Last Admin: 03/08/17 09:02 Dose: 12.5 mg Pantoprazole Sodium (Protonix -) 20 mg PO DAILY [facility] Last Admin: 03/08/17 09:02 Dose: 20 mg Senna (Senna -) 2 tab PO HS PRN PRN Reason: CONSTIPATION Tamsulosin HCl (Flomax -) 0.4 mg PO DAILY@0830 [facility] Last Admin: 03/08/17 09:02 Dose: 0.4 mg Triamcinolone Acetonide (Aristocort 0.1% Cream -) 1 applic TP DAILY [facility] Last Admin: 03/08/17 11:04 Dose: 1 applic - Objective Vital Signs: Vital Signs Temperature 98.9 F 03/08/17 14:00 Pulse Rate 77 03/08/17 14:00 Respiratory Rate 20 03/08/17 14:00 Blood Pressure 128/78 03/08/17 14:00 O2 Sat by Pulse Oximetry (%) 92 L 03/08/17 09:06 Constitutional: Yes: Anxious Eyes: Yes: WNL HENT: Yes: WNL Neck: Yes: WNL Cardiovascular: Yes: Pulse Irregular, S1, S2. No: JVD Respiratory: Yes: Regular. No: Cough Gastrointestinal: Yes: Soft ...Rectal Exam: Yes: Deferred Genitourinary: No: Anuria Breast(s): Yes: WNL Musculoskeletal: Yes: Muscle Weakness Extremities: Yes: Cool Edema: Yes Edema: LLE: 1+, RLE: 1+ Peripheral Pulses WNL: No Peripheral Pulses: Left Doralis Pedis: 1+, Right Dorsalis Pedis: 1+ Integumentary: Yes: Venous Stasis Changes Neurological: Yes: Alert, Oriented, Weakness Psychiatric: Yes: Other (anxiety) Labs: CBC, BMP 03/08/17 06:17 03/08/17 06:17 INR, PTT INR 1.40 (0.82-1.09) H 03/03/17 06:32 Abnormal Lab Results 03/08/17 03/08/17 06:17 06:17 RBC 2.99 L Hgb 9.2 L Hct 28.1 L RDW 16.4 H Chloride 96 L Carbon Dioxide 34 H BUN 31 H Creatinine 1.4 H - ....Imaging Other: Image Reviewed (telemetry: NSR; frequent APCs) Problem List - Problems (1) Dyspnea Code(s): R06.00 - DYSPNEA, UNSPECIFIED Qualifiers: Dyspnea type: unspecified Qualified Code(s): R06.00 - Dyspnea, unspecified (2) Anxiety Code(s): F41.9 - ANXIETY DISORDER, UNSPECIFIED (3) Hypertension Code(s): I10 - ESSENTIAL (PRIMARY) HYPERTENSION Qualifiers: Hypertension type: essential hypertension Qualified Code(s): I10 - Essential (primary) hypertension (4) Hypomagnesemia Assessment/Plan: keep Mag level 2-2.3 (presently 2.0). Code(s): E83.42 - HYPOMAGNESEMIA (5) Pulmonary hypertension, moderate to severe Code(s): I27.20 - PULMONARY HYPERTENSION, UNSPECIFIED (6) Renal dysfunction Code(s): N28.9 - DISORDER OF KIDNEY AND URETER, UNSPECIFIED (7) Ventral hernia Code(s): K43.9 - VENTRAL HERNIA WITHOUT OBSTRUCTION OR GANGRENE (8) Acute on chronic diastolic (congestive) heart failure Assessment/Plan: Likely exacerbated by ?new-onset AF. Weight gain of over 10 lbs in the past week. Plan: Continue metoprolol ER, hydralazine + isordil. Pt had been on lisinopril 2.5 mg daily at home; restart when cleared by navy diver. Replete magnesium, and keep 2-2.3. BUN/Cr, electrolytes, daily weight, Is and Os.(pT gained 2 bls since yesterday, but is asymptomatic, and says he has been eating much more in the hospital than at home. F/u over the weekend; as discussed with Dr. Soni, may require bid furosemide if wt gain continues or pt becomes symptomatic. Start IV heparin for AF. Code(s): I50.33 - ACUTE ON CHRONIC DIASTOLIC (CONGESTIVE) HEART FAILURE (9) Stented coronary artery Assessment/Plan: Recent (01/2017) DEStent of LAD. Continue clopidgrel and ASA. On metoprolol ER. Continue atorvastatin 80 mg daily for aggressive lipid control (f/u mild increase in LFTS: ? secondary to "passive congestion" from CHF). Code(s): Z95.5 - PRESENCE OF CORONARY ANGIOPLASTY IMPLANT AND GRAFT (10) GERD (gastroesophageal reflux disease) Assessment/Plan: Agree with pantoprazole (and would discharge pt with this medication, rather than omeprazole). Code(s): K21.9 - GASTRO-ESOPHAGEAL REFLUX DISEASE WITHOUT ESOPHAGITIS (11) Atrial fibrillation, new onset Assessment/Plan: On metoprolol ER; keep at 12.5 mg daily (now in sinus rhythm; frequent APCs, brief pauses; interspersed with AF with slow VR). Continue apixaban. ECHO: normal LVEF; moderately dilated LA and RA; moderately severe MR and TR; significant pulmonary HTN. From a cardiac perspective, pt may be followed up as an outpatient. Code(s): I48.91 - UNSPECIFIED ATRIAL FIBRILLATION
[2017-03-08] MEDS ORDERED: NITROGLYCERIN SUBLINGUAL 1/150 0.4 MG TAB SL PRN (16:49)
--- NOTE | 2017-03-09 06:00 | DS ---
Physical Exam: SUBJECTIVE: Patient seen and examined by me - No major events overnight. Still with dry cough. No CP, chest tightness, N/V, abdominal pain, GODWIN/dizziness, THOMAS, PND. Still with dry cough and BL LE edema. - Ambulating well with improvement in dyspnea. Complaining of constipation, no BM for 2 days. OBJECTIVE: Vital Signs Period Temp Pulse Resp BP Sys/Clifton Pulse Ox Last 24 Hr 98.9 F-98.9 F 77-109 20-20 128-143/63-78 92-97 PHYSICAL EXAM GENERAL: Awake, alert, and fully oriented, in no acute distress. HEAD: Normal with no signs of trauma. EYES: Pupils equal, round and reactive to light, extraocular movements intact, sclera anicteric, conjunctiva clear. No lid lag. EARS, NOSE, THROAT: Ears normal, nares patent, oropharynx clear without exudates. Moist mucous membranes. NECK: JVD+ 4cm below mandible, Normal range of motion, supple without lymphadenopathy, JVD, or masses. LUNGS: Trace rhonchi. No wheezes. No accessory muscle use. HEART: IRR IRR, normal S1 and S2, S3 noted. 2/6 systolic blowing murmur heard at LLSB. ABDOMEN: Distended, NT, soft. normoactive bowel sounds, no guarding, no rebound , no masses. No hepatomegaly or splenomegaly. Diffuse inflamed petechial noted on abdomen, crossing midline. Ventral hernia noted. MUSCULOSKELETAL: Normal range of motion at all joints. No bony deformities or tenderness. No CVA tenderness. UPPER EXTREMITIES: 2+ pulses, warm, well-perfused. No cyanosis. No clubbing. No peripheral edema. LOWER EXTREMITIES: 2+ pitting edema to knees. 2+ DP, PT pulses. WWP. No calf tenderness. NEUROLOGICAL: Cranial nerves II-XII intact. Normal speech. Gait not evaluated. PSYCHIATRIC: Cooperative. Good eye contact. Appropriate mood and affect. SKIN: Warm, dry, normal turgor, no rashes or lesions noted, normal capillary refill. LABS Laboratory Results - last 24 hr CBC, BMP 03/08/17 06:17 03/08/17 06:17 03/08/17 03/08/17 03/08/17 06:17 06:17 06:17 WBC 5.0 RBC 2.99 L Hgb 9.2 L Hct 28.1 L MCV 94.0 MCH 30.7 MCHC 32.7 RDW 16.4 H Plt Count 249 MPV 8.8 PTT (Actin FS) 32.4 Sodium 139 Potassium 4.0 Chloride 96 L Carbon Dioxide 34 H Anion Gap 9 BUN 31 H Creatinine 1.4 H Random Glucose 90 Calcium 9.2 Magnesium 2.0 HOSPITAL COURSE: Date of Admission:03/02/17 Date of Discharge: 03/09/17 89 year old male with a pmh of CHF, CAD, HTN, HLD, gout, BPH, who presents to ED in setting of 3 weeks weight gain and worsening SOB, THOMAS after receiving cardiac stent at [facility]. Pt continues to improve clinically, will likely go home today after transitioning to PO lasix. No micro on admission Abdominal U/S 03/03 - Borderline hepatomegaly with a slightly nodular contour and slightly coarse echotexture. Rule out hepatocellular disease. Please correlate with liver enzymes. Very limited visualization of the likely contracted gallbladder with intraluminal debris is and likely small stones. No pericholecystic free fluid is present. Right pleural effusion Small amount of free fluid/ascites in the right and left upper abdomen Nonvisualization of the pancreas CXR 03/03 : Right pleural effusion with right basilar consolidation. Right lateral decubitus view of the chest may be considered. Bilateral skin folds. Cardiomegaly. EKG (admission): Rate 58, NAD, Irregularly irregular, no p-waves noted - possibly afib w/ bradycardia or aflutter w/ variable conduction EKG 03/06 - NSR, NAD, rate 66, QTC 434, 2nd degree type 1 HB noted. ECHO 10/2015 - Biatrial dilatation. Moderate MR, severe TR, mild/moderate AR/AL. Calculated EF 75%. Normal LV function. ECHO 03/03/2017 - LV function normal. Biatrial dilatation. Severe TR. EF 73% Consults: Renal - Dr. Soni Cardiac - Dr. Moyer Pt was discharged home with outpt f/u with the above noted consultants, as well as his PCP. Pt clinically improved and stable for discharge. Discharge Summary Reason For Visit: DYSPNEA, DIASTOLIC CHF Condition: Stable - Instructions Diet, Activity, Other Instructions: During your stay at [facility] you were treated for acute on chronic congestive heart failure: Medications: The following changes were made to your home medications. Please continue taking them as described below: Lasix 40mg by mouth, twice a day (originally 20mg twice a day) Toprol XL (Metoprolol Succinate) 12.5 mg, once a day (originally 25mg once a day ) The following medications were added to your home medication regimen. Please take them as described below: Eliquis 2.5mg by mouth, twice a day Magnesium Chloride, one pill/day for the next five days Please stop taking the following medications until you are seen by your primary care provider: Lisinopril (Zestril) Amlodipine (Norvasc) Please continue to take all other home medication as previously prescribed Appointments: Please follow-up with the accounts payable coordinator who saw your during your stay, Dr. Soni , in one week for further management of your acute kidney injury. Please follow-up with your language assistant, Dr. Belle, in one week for further management of your congestive heart failure and adjustment of your home cardiac medication. Please follow-up with your primary care provided, Dr. Short, in one week for review of your outpatient lab work and further management of your home medications. In addition, please have the following lab tests done in the next week : Basic Metabolic Panel, magnesium levels Diet/exercise/home health routine: daily weights,notify doctor if weight gain > 3lbs in 2 days, leg swelling, decreased urination or new concerns. Please limited your Sodium intake to less than 2g per day and consume foods low in sodium and saturated fats. Please check your blood pressure intermittently at home every day. If your systolic blood pressure (upper BP) persistently> 140 or < 100 or any dizziness noted, talk to your doctor or come to the hospital. YOur BP medication amlodipine is being held on discharge, so if your BP is persistently elevated after going home, you will need to discuss with your doctor about resumption of the same. Please note that you are started on blood thinner Eliquis for your heart that will increase your risk of bleeding. Also you cannot receive a spinal tap or spinal/epidural procedure while on this medication. sudden discontinuation of the medication may increase your risk of clotting. Please return to the hospital if you experience any of the following symptoms: - >3lb weight gain in 48 hour period - Chest pain/tightness - Persistent trouble breathing - Shortness of breath at night or when lying down - Significant swelling in your feet - Any new symptoms Referrals: Rodney Belle MD [Staff Physician] - 1 Week Alan Short MD [Primary Care Provider] - 1 Week Luiz Soni MD [Staff Physician] - 1 Week Disposition: VNS/HOME HEALTH CARE - Home Medications Comprehensive Discharge Medication List: Ambulatory Orders Allopurinol [Zyloprim -] 100 mg PO DAILY 03/02/17 Aspirin 81 mg PO DAILY 03/02/17 Clopidogrel Bisulfate [Plavix] 75 mg PO DAILY 03/02/17 Docusate Sodium [Colace] 100 mg PO BID 03/02/17 Hydralazine HCl 50 mg PO DAILY 03/02/17 Isosorbide Mononitrate [Imdur -] 60 mg PO DAILY 03/02/17 Omeprazole 20 mg PO DAILY 03/02/17 Tamsulosin HCl [Flomax] 0.4 mg PO DAILY 03/02/17 Triamcinolone 0.1% Cream [Aristocort 0.1% Cream -] 0 gm TP DAILY 03/02/17 Nitroglycerin 0.4 mg PO ONCE PRN 03/03/17 Apixaban [Eliquis -] 2.5 mg PO BID #60 tablet 03/08/17 Atorvastatin Ca [Lipitor] 80 mg PO HS #30 tablet 03/08/17 Furosemide [Lasix -] 40 mg PO BID@0600,1400 #30 tablet 03/08/17 Magnesium Chloride 64 mg PO DAILY #5 tablet.dr 03/08/17 Metoprolol Succinate [Toprol XL -] 12.5 mg PO DAILY #30 tab.sr.24h 03/08/17 Miscellaneous Drug Not In Syst [Outpatient Lab Test] 1 each [place]1 [facility] [place] Ref[place] [facility]erred to [facility] No
[2017-03-09] MEDS ORDERED: amLODIPine BESYLATE 10 MG TABLET (FP) PO SCH (10:00)
[2017-03-09] MEDS ORDERED: ALLOPURINOL 100 MG TABLET (FP) PO SCH (10:00)
== END 2017-03-08 18:15 | disposition home health service (06) | DRG 291 ==
LOC: JER 14:30 → JERBED 18:44 → J4W 03-03 16:42
PROVIDERS: ADMIT Internal Medicine; ATTEND Hospitalist
DX: I13.0 Hypertensive heart and chronic kidney disease with heart failure and stage 1 through stage 4 chronic kidney disease, or unspecified chronic kidney disease (principal); I50.33 Acute on chronic diastolic (congestive) heart failure; E87.1 Hypo-osmolality and hyponatremia; N17.9 Acute kidney failure, unspecified; I48.92 Unspecified atrial flutter; N18.3 Chronic kidney disease, stage 3 (moderate); I25.10 Atherosclerotic heart disease of native coronary artery without angina pectoris; E78.5 Hyperlipidemia, unspecified; N40.0 Benign prostatic hyperplasia without lower urinary tract symptoms; I08.1 Rheumatic disorders of both mitral and tricuspid valves; D64.9 Anemia, unspecified; I44.1 Atrioventricular block, second degree; R74.0 Nonspecific elevation of levels of transaminase and lactic acid dehydrogenase [LDH]; M10.9 Gout, unspecified; F41.8 Other specified anxiety disorders; J44.9 Chronic obstructive pulmonary disease, unspecified; I48.91 Unspecified atrial fibrillation; E83.42 Hypomagnesemia; R16.0 Hepatomegaly, not elsewhere classified; I27.20 Pulmonary hypertension, unspecified; E83.51 Hypocalcemia; K43.9 Ventral hernia without obstruction or gangrene; E66.8 Other obesity; Z68.25 Body mass index [BMI] 25.0-25.9, adult; Z87.891 Personal history of nicotine dependence; Z95.5 Presence of coronary angioplasty implant and graft
CPT/HCPCS: 36415; 71045-TC; 71046-TC; 76700-TC; 76775-TC; 80048; 80053; 80074; 81003; 82272; 82436; 82550; 82553; 82570; 82728; 83540; 83550; 83735; 83880; 83930; 84100; 84133; 84156; 84300; 84484; 84540; 85025; 85027; 85610; 85730; 93005; 93010; 93306-TC; 94761; 97116-GP; 97161-GP; 99285-25; J1644; J1756